=== PATIENT | male | born 1925 | race Caucasian/White ===

== ENCOUNTER 2016-07-26 12:12 | Emergency (ER) | payer OTHER ==
[~2016-07-26] VITALS: Ht 175.3 cm; Wt 75.0 kg
[~2016-07-26 12:12] MED LIST: ADVI200C5 PO; ALFU10TA2 PO; BETH10TA2 PO; COLA100C3 PO; MACR100C2 PO; MAPA500C PO; OMEP20TA PO; PRESCAP5 PO; PRIM50TA5 PO; VITA1000 PO; [UNRECOGNIZED DRUG - OTHER] EACH NARE
[2016-07-26 12:14] VITALS: BP 171/77; PULSE 62; RESP 28; TEMP 98.1; O2SAT 97
--- NOTE | 2016-07-26 13:00 | PD ---
HPI Chief Complaint: Respiratory Symptoms Time Seen by Provider: 13:00 Travel History International Travel<30 days: No Contact w/Intl Traveler<30days: No Traveled to known affect area: No History of Present Illness HPI 89-year-old male brought in by with one week of increasing cough and shortness of breath. Patient has a pacemaker, and reports his automotive technician is Dr. Sam, and states he had a stress test approximately 1 month ago. Patient does have sinus congestion and postnasal drip which has been worsening over the past week. Patient does use Marco-Synephrine in the evening for his sinus congestion. Patient denies fever, chills, nausea, vomiting, or abdominal pain. Patient has a history of indwelling catheter with chronic urinary tract infection for which she takes cefuroxime and Bactrim on a daily basis. This is followed by his urologist. Patient denies headache, ear pain or sore throat. He has no known drug allergies. PFSH Past Medical History Hx Anticoagulant Therapy: No Heart Rhythm Problems: Yes Cardiovascular Problems: Yes (PACEMAKER) High Cholesterol: Yes Diminished Hearing: Yes ([place] [employer] [employer] hearing aids) GERD: Yes Genitourinary: Yes (Enlarged Prostate) Hypertension: Yes Neurologic: Yes (ESSENTIAL TREMORS) Immunizations Current: Yes Past Surgical History Cardiac Surgery: Yes (PACER) Eye Surgery: Yes (BILAT CATARACT) Genitourinary Surgery: Yes (TURP '94) Pacemaker: Yes Other Surgery: Yes ( GOITER REMOVED) Social History Alcohol Use: No Tobacco Use: No (QUIT 1965) Substance Use: No Allergies-Medications (Allergen,Severity, Reaction): Coded Allergies: No Known Allergies (Unverified , 07/26/16) Reported Meds & Prescriptions Reported Meds & Active Scripts Active Macrobid (Nitrofurantoin Monoh/Nitrofur Macro) 100 Mg Cap 100 Mg PO BID 7 Days Reported Omeprazole 20 Mg Tab 20 Mg PO DAILY Bethanechol 10 Mg Tab 10 Mg PO QID Advil (Ibuprofen) 200 Mg Cap 200 Mg PO Q4-6H PRN Mapap (Acetaminophen) 500 Mg Cap 500 Mg PO QID PRN 12 Hour Nasal Relief Eldred (Oxymetazoline HCl) 0.05 % Spr 1 Eldred EACH NARE Q12HR PRN Primidone 50 Mg Tab 100 Mg PO TID D 1000 (Cholecalciferol) 1,000 Unit Tab 1,000 Units PO DAILY Preservision Areds 2 (Multiple Vitamins W/ Minerals) 1 Cap 1 Cap PO BID Colace (Docusate Sodium) 100 Mg Cap 100 Mg PO BID Alfuzosin ER 24 HR 10 Mg Tab 10 Mg PO DAILY Review of Systems Except as stated in HPI: all other systems reviewed are Neg General / Constitutional: No: Fever, Chills Eyes: No: Visual changes HENT: Positive: Rhinitis, Rhinorrhea, Congestion, No: Headaches, Vertigo, Lightheadedness, Sore Throat, Neck Stiffness, Neck Pain, Ear Discharge, Earache Cardiovascular: No: Chest Pain or Discomfort Respiratory: Positive: Cough, Shortness of Breath, No: Wheezing, Sneezing, Orthopnea, Hemoptysis, Stridor, Night Sweats, Pleuritic Pain Gastrointestinal: No: Nausea, Vomiting, Diarrhea, Abdominal Pain Genitourinary: No: Dysuria Musculoskeletal: No: Myalgias, Arthralgias, Limited ROM, Pain Skin: No Rash Neurologic: No: Weakness Psychiatric: No: Depression Endocrine: No: Polydipsia Hematologic/Lymphatic: No: Easy Bruising Physical Exam Narrative GENERAL: Patient appears in no acute distress. SKIN: Warm and dry. Normal color. Normal turgor. HEAD: Atraumatic. Normocephalic. EYES: Pupils equal and round. No scleral icterus. No injection or drainage. ENT: No nasal bleeding but moderate mildly purulent nasal discharge. Mucous membranes pink and moist. Pharynx is normal. TMs are normal bilaterally. NECK: Trachea midline. No JVD. Supple nontender. CARDIOVASCULAR: Regular rate and rhythm. No murmurs gallops or rubs. RESPIRATORY: No accessory muscle use. No wheezes crackles or rales appreciated to auscultation. Breath sounds equal bilaterally. GASTROINTESTINAL: Abdomen soft, non-tender, nondistended. Hepatic and splenic margins not palpable. MUSCULOSKELETAL: Extremities without clubbing, cyanosis, or edema. No obvious deformities. NEUROLOGICAL: Awake and alert. No obvious cranial nerve deficits. Motor grossly within normal limits. Five out of 5 muscle strength in the arms and legs. Normal speech. PSYCHIATRIC: Appropriate mood and affect; insight and judgment normal. Data Data Last Documented VS Vital Signs Date Time Temp Pulse Resp B/P Pulse Ox O2 Delivery O2 Flow Rate FiO2 07/26/16 13:16 16 97 Room Air 07/26/16 12:14 98.1 62 171/77 Orders Complete Blood Count With Diff (07/26/16 13:09) Comprehensive Metabolic Panel (07/26/16 13:09) B-Type Natriuretic Peptide (07/26/16 13:09) Act Partial Throm Time (Ptt) (07/26/16 13:09) Prothrombin Time / Inr (Pt) (07/26/16 13:09) Magnesium (Mg) (07/26/16 13:09) Ckmb (Isoenzyme) Profile (07/26/16 13:09) Troponin I (07/26/16 13:09) Urinalysis - C+S If Indicated (07/26/16 13:09) Influenzae A/B Antigen (07/26/16 13:09) Iv Access Insert/Monitor (07/26/16 13:09) Electrocardiogram (07/26/16 13:09) Ecg Monitoring (07/26/16 13:09) Oximetry (07/26/16 13:09) Oxygen Administration (07/26/16 13:09) Chest, Single Ap (07/26/16 13:09) Sodium Chloride 0.9% Flush (Ns Flush) (07/26/16 13:15) Lactic Acid (07/26/16 13:09) Labs Laboratory Tests Test 07/26/16 13:30 White Blood Count 6.4 TH/MM3 Red Blood Count 4.35 MIL/MM3 Hemoglobin 13.6 GM/DL Hematocrit 39.6 % Mean Corpuscular Volume 91.1 FL Mean Corpuscular Hemoglobin 31.3 PG Mean Corpuscular Hemoglobin 34.4 % Concent Red Cell Distribution Width 14.3 % Platelet Count 203 TH/MM3 Mean Platelet Volume 7.3 FL Neutrophils (%) (Auto) 74.3 % Lymphocytes (%) (Auto) 15.0 % Monocytes (%) (Auto) 9.0 % Eosinophils (%) (Auto) 0.9 % Basophils (%) (Auto) 0.8 % Neutrophils # (Auto) 4.8 TH/MM3 Lymphocytes # (Auto) 1.0 TH/MM3 Monocytes # (Auto) 0.6 TH/MM3 Eosinophils # (Auto) 0.1 TH/MM3 Basophils # (Auto) 0.1 TH/MM3 CBC Comment DIFF FINAL Differential Comment Prothrombin Time 11.1 SEC Prothromb Time International 1.0 RATIO Ratio Activated Partial 26.9 SEC Thromboplast Time Sodium Level 136 MEQ/L Potassium Level 4.5 MEQ/L Chloride Level 101 MEQ/L Carbon Dioxide Level 28.8 MEQ/L Anion Gap 6 MEQ/L Blood Urea Nitrogen 19 MG/DL Creatinine 1.19 MG/DL Estimat Glomerular Filtration 58 ML/MIN Rate Random Glucose 123 MG/DL Lactic Acid Level 0.8 mmol/L Calcium Level 8.6 MG/DL Magnesium Level 2.2 MG/DL Total Bilirubin 0.3 MG/DL Aspartate Amino Transf 7 U/L (AST/SGOT) Alanine Aminotransferase 13 U/L (ALT/SGPT) Alkaline Phosphatase 47 U/L Total Creatine Kinase 16 U/L Troponin I LESS THAN 0.02 NG/ML B-Type Natriuretic Peptide 82 PG/ML Total Protein 5.9 GM/DL Albumin 3.4 GM/DL [facility] Medical Decision Making Medical Screen Exam Complete: Yes Emergency Medical Condition: Yes Differential Diagnosis Sinusitis. Post nasal drip. Bronchitis. Pneumonia. CHF. Narrative Course Patient is medically stable at time of exam. EKG is obtained showing no acute changes with a paced rhythm. This was reviewed with Dr. butcher. Labs ordered including CBC, CMP, cardiac panel, proBNP, and influenza. Urinalysis is ordered as well. Chest x-ray is ordered. This is read as no acute process per radiologist. Labs are unremarkable. Rapid influenza is negative. Patient is felt stable to be discharged home with treatment for sinusitis. Patient is given a prescription for amoxicillin 875 twice a day 10 days. Patient is also to use Flonase nasal spray 2 sprays each nostril daily. Patient also given Tessalon Perles 100 mg one every 6 hours when necessary cough. Patient should follow-up with his primary care physician in the next week to ensure improvement. Patient male was returned to the emergency department if symptoms worsen. Diagnosis Primary Impression: Sinusitis Qualified Code: J01.00 - Acute non-recurrent maxillary sinusitis Additional Impression: Post-nasal drip Referrals: Primary Care Physician Patient Instructions: General Instructions, Sinusitis (ED) Additional Instructions: Patient is felt stable to be discharged home with treatment for sinusitis. Patient is given a prescription for amoxicillin 875 twice a day 10 days. Patient is also to use Flonase nasal spray 2 sprays each nostril daily. Patient also given Tessalon Perles 100 mg one every 6 hours when necessary cough. Patient should follow-up with his primary care physician in the next week to ensure improvement. Patient male was returned to the emergency department if symptoms worsen. Med/Other Pt SpecificInfo: Prescription(s) given Disposition: 01 DISCHARGE HOME Condition: Stable Edgardo De La Rosa Jul 26, 2016 13:00
[2016-07-26] MEDS ORDERED: SODIUM CHLORIDE 0.9% FLUSH 5 ML FLUSH IVF PRN (13:15)
[2016-07-26 13:16] VITALS: RESP 16; O2SAT 97
[2016-07-26 13:51] LABS: AUTOMATED NEUTROPHIL # 4.8 TH/MM3 (1.8-7.7); BASOPHIL # 0.1 TH/MM3 (0-0.2); BASOPHIL % 0.8 % (0.0-2.0); EOSINOPHIL # 0.1 TH/MM3 (0-0.4); EOSINOPHIL % 0.9 % (0.0-4.0); HEMATOCRIT 39.6 % (39.0-51.0); HEMO FLAGS DIFF FINAL; MEAN CELL VOLUME 91.1 FL (80.0-100.0); MEAN CORPUSCULAR HEMOGLOBIN 31.3 PG (27.0-34.0); MEAN CORPUSCULAR HGB CONC 34.4 % (32.0-36.0); NEUT % 74.3 % (16.0-70.0); PLATELET COUNT 203 TH/MM3 (150-450); RED BLOOD COUNT 4.35 MIL/MM3 (4.50-5.90); RED CELL DISTRIBUTION WIDTH 14.3 % (11.6-17.2); WHITE BLOOD COUNT 6.4 TH/MM3 (4.0-11.0)
[2016-07-26 13:59] LABS: APTT (PATIENT) 26.9 SEC (24.3-30.1); PROTHROMBIN TIME - PATIENT 11.1 SEC (9.8-11.6)
[2016-07-26 14:00] LABS: ALT (GPT) 13 U/L (12-78); ANION GAP 6 MEQ/L (5-15); AST (GOT) 7 U/L (15-37); BICARBONATE 28.8 MEQ/L (21.0-32.0); BLOOD UREA NITROGEN 19 MG/DL (7-18); CHLORIDE 101 MEQ/L (98-107); GLOMERULAR FILTRATION RATE 58 ML/MIN (>89); MAGNESIUM 2.2 MG/DL (1.5-2.5); POTASSIUM 4.5 MEQ/L (3.5-5.1); SODIUM (NA) 136 MEQ/L (136-145)
[2016-07-26 14:04] LABS: ALKALINE PHOSPHATASE 47 U/L (45-117); TOTAL BILIRUBIN ADULT 0.3 MG/DL (0.2-1.0)
--- NOTE | 2016-07-26 14:06 | RADRPT ---
EXAM DATE/TIME: 07/26/2016 13:38 [facility] COMPARISON: CHEST SINGLE AP, April 21, 2016, 8:59. INDICATIONS : Short of Breath MEDICAL HISTORY : Chronic obstructive pulmonary disease. SURGICAL HISTORY : Pacemaker. ENCOUNTER: Initial ACUITY: 1 day PAIN SCORE: 0/10 LOCATION: Bilateral chest FINDINGS: Portable AP view of the chest demonstrates a normal-sized cardiac silhouette. No effusion, consolidat ion, or pneumothorax is visualized. The bones and soft tissues demonstrate no acute abnormality. Card iac pacing device is present. CONCLUSION: No acute cardiopulmonary abnormality is identified. Bassem Wilson MD on July 26, 2016 at 14:04 Board Certified Radiologist. This report was verified electronically.
[2016-07-26 14:08] LABS: CREATINE KINASE 16 U/L (39-308)
[2016-07-26] MEDS ORDERED: AMOX875T PO (14:19)
[2016-07-26] MEDS ORDERED: FLUT1SPR9 EACH NARE (14:19)
[2016-07-26] MEDS ORDERED: BENZ100 PO (14:19)
[2016-07-26 15:30] VITALS: BP 141/68
--- NOTE | 2016-07-28 21:29 | EKG ---
Date Performed: 07/26/2016 Time Performed: 13:26:11 PTAGE: 89 years EKG: ELECTRONIC VENTRICULAR PACEMAKER ABNORMAL RHYTHM ECG PREVIOUS TRACING : 06/26/2016 03.20 DOCTOR: Clint Maynard Interpretating Date/Time 07/28/2016 21:28:18
[2016-09-09] MEDS ORDERED: TRAM50TA PO (18:06)
== END 2016-07-26 15:29 | disposition home or self-care (01) ==
LOC: NEPC 12:12
DX: J32.9 Chronic sinusitis, unspecified (principal); R09.82 Postnasal drip; Z95.0 Presence of cardiac pacemaker
CPT/HCPCS: 71010; 80053; 82550; 83605; 83735; 83880; 84484; 85025; 85610; 85730; 87804; 93005

== ENCOUNTER 2016-08-06 14:19 | Inpatient (IN) | payer OTHER ==
[~2016-08-06] VITALS: Ht 175.3 cm; Wt 74.7 kg
[~2016-08-06 14:19] MED LIST changes: +AMOX875T PO; +BENZ100 PO; +FLUT1SPR9 EACH NARE
[2016-08-06 14:27] VITALS: BP 185/88; PULSE 64; RESP 18; TEMP 98.3; O2SAT 87
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
[2016-08-06 15:03] VITALS: RESP 17; O2SAT 97
[2016-08-06 15:12] LABS: AMPHETAMINE, URINE NEG (NEG); AUTOMATED NEUTROPHIL # 5.1 TH/MM3 (1.8-7.7); BACTERIA, URINE RARE /hpf; BARBITURATES, URINE POS (NEG); BASOPHIL % 0.7 % (0.0-2.0); BLOOD, URINE NEG (NEG); COCAINE, URINE NEG (NEG); EOSINOPHIL # 0.1 TH/MM3 (0-0.4); GLUCOSE,URINE NEG (NEG); HEMATOCRIT 39.8 % (39.0-51.0); HEMO FLAGS DIFF FINAL; KETONE, URINE NEG (NEG); LYMPH % 14.2 % (9.0-44.0); MEAN CELL VOLUME 89.3 FL (80.0-100.0); MEAN CORPUSCULAR HEMOGLOBIN 31.4 PG (27.0-34.0); MEAN CORPUSCULAR HGB CONC 35.1 % (32.0-36.0); MONO % 8.8 % (0.0-8.0); NEUT % 74.3 % (16.0-70.0); NITRITE,URINE NEG (NEG); PLATELET COUNT 175 TH/MM3 (150-450); RED BLOOD COUNT 4.46 MIL/MM3 (4.50-5.90); RED CELL DISTRIBUTION WIDTH 14.9 % (11.6-17.2); URINE COLOR YELLOW (YELLW/STRAW); WHITE BLOOD COUNT 6.8 TH/MM3 (4.0-11.0)
[2016-08-06 15:13] LABS: COMMENT (UR) CATH-CULTURE IND; CULTURE IF INDICATED CATH CULTURE IND
[2016-08-06 15:22] LABS: ALT (GPT) 10 U/L (12-78); ANION GAP 8 MEQ/L (5-15); AST (GOT) 7 U/L (15-37); BICARBONATE 24.5 MEQ/L (21.0-32.0); BLOOD UREA NITROGEN 19 MG/DL (7-18); CHLORIDE 104 MEQ/L (98-107); GLOMERULAR FILTRATION RATE 58 ML/MIN (>89); POTASSIUM 4.3 MEQ/L (3.5-5.1); SODIUM (NA) 136 MEQ/L (136-145)
[2016-08-06 15:24] LABS: ACETAMINOPHEN LESS THAN 2.0 MCG/ML (10.0-30.0); ALKALINE PHOSPHATASE 53 U/L (45-117); TOTAL BILIRUBIN ADULT 0.5 MG/DL (0.2-1.0)
[2016-08-06 15:30] VITALS: BP 174/93; PULSE 63; RESP 16; TEMP 98; O2SAT 96
[2016-08-06] MEDS ORDERED: CEPH250T PO (15:34)
[2016-08-06] MEDS ORDERED: PROP20TA3 PO (15:34)
[2016-08-06] MEDS ORDERED: CAPT25TA2 PO (15:34)
[2016-08-06] MEDS ORDERED: CEPHALEXIN MONOHYDRATE 250 MG CAP PO ONE (16:00)
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
[2016-08-06] MEDS ORDERED: ALUMINUM/MAGNESIUM/SIMETH 30 ML CUP PO PRN (17:45)
[2016-08-06] MEDS ORDERED: MAGNESIUM HYDROXIDE SUSP 30 ML CUP PO PRN (17:45)
[2016-08-06 17:54] VITALS: BP 185/95; PULSE 70; RESP 16; O2SAT 99
[2016-08-06] MEDS ORDERED: PROPRANOLOL HCL 20 MG TAB PO ONE (18:00)
[2016-08-06] MEDS: PROPRANOLOL HCL 20 MG TAB PO SCH (21:00)
[2016-08-06] MEDS: CEPHALEXIN MONOHYDRATE 250 MG CAP PO SCH (21:00)
[2016-08-06 21:30] VITALS: BP 153/72; PULSE 75
[2016-08-06] MEDS: IBUPROFEN 400 MG TAB PO PRN (22:14)
[2016-08-06 22:37] VITALS: BP 189/91; PULSE 80; RESP 16; TEMP 97.2; O2SAT 97
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
[2016-08-07] MEDS: OXYMETAZOLINE HCL 0.05% 15 ML NASAL SPRAY NASAL PRN ×2 (00:56→21:32)
[2016-08-07] MEDS: CAPTOPRIL 25 MG TAB PO SCH ×2 (05:39→16:00)
[2016-08-07 05:53] VITALS: BP 171/83; PULSE 60; RESP 18; TEMP 97.4; O2SAT 97
[2016-08-07 07:36] LABS: ANION GAP 7 MEQ/L (5-15); BICARBONATE 26.5 MEQ/L (21.0-32.0); BLOOD UREA NITROGEN 21 MG/DL (7-18); CHLORIDE 103 MEQ/L (98-107); GLOMERULAR FILTRATION RATE 57 ML/MIN (>89); POTASSIUM 3.9 MEQ/L (3.5-5.1); SODIUM (NA) 136 MEQ/L (136-145)
[2016-08-07 07:39] LABS: HDL CHOLESTEROL 38.7 MG/DL (40.0-60.0); LDL CHOLESTEROL 96 MG/DL (0-99)
[2016-08-07] MEDS ORDERED: ENALAPRILAT 1.25 MG/ML VIAL IV PRN (08:00)
[2016-08-07] MEDS ORDERED: cloNIDine HCL 0.1 MG TAB PO PRN (08:00)
[2016-08-07] MEDS: PROPRANOLOL HCL 20 MG TAB PO SCH ×2 (09:29→21:32)
[2016-08-07] MEDS: CEPHALEXIN MONOHYDRATE 250 MG CAP PO SCH ×4 (09:29→21:32)
[2016-08-07] MEDS ORDERED: SODIUM CHLORIDE 0.65% NASAL DRP/SPRY 30 ML BTL PRN (10:30)
--- NOTE | 2016-08-07 10:35 | HHI.PR ---
Subjective Remarks Follow-up visit HTN, enlarged prostate, HLD. Patient seen today. Reports he is doing well. States that he tried to kill himself with a gun because his has been nagging him too much for a long time. As per report, has early Alzheimer's disease and they have been arguing more often. Patient states that he is being seen by Dr. Velazco for enlarged prostate with urinary retention. Willis catheter in place, being change every monthly. As per patient , last change was about a month ago or 3 weeks ago. Complaints of having "stuffy nose." Requesting for his nasal spray. Denies pain and discomfort. Denies SOB/ dyspnea. Denies chest pain, palpitations, headaches, dizziness. Denies fevers, chills, n/v/d. Objective Vitals Vital Signs Date Time Temp Pulse Resp B/P Pulse Ox O2 Delivery O2 Flow Rate FiO2 08/07/16 05:53 97.4 60 18 171/83 97 08/06/16 22:37 97.2 80 16 189/91 97 08/06/16 21:30 75 153/72 08/06/16 17:54 70 16 185/95 99 Room Air 08/06/16 15:30 63 16 08/06/16 15:30 98.0 63 16 174/93 96 Room Air 08/06/16 15:03 17 97 Room Air 08/06/16 14:27 98.3 64 18 185/88 87 I/O 08/06/16 08/06/16 08/06/16 08/07/16 08/07/16 08/07/16 07:00 15:00 23:00 07:00 15:00 23:00 Intake Total 360 ml Output Total 550 ml 300 ml Balance -190 ml -300 ml Intake Oral 360 ml Output Urine Total 550 ml 300 ml # Voids 0 # Bowel Movements 1 1 Result Diagram: 08/06/16 1442 08/07/16 0655 Objective Remarks GENERAL: This is a well-nourished, well-developed patient, in no apparent distress. HEENT: Normocephalic. Pupils equal round and reactive. Nose without bleeding. Airway patent. NECK: Trachea midline. No JVD. Supple. CARDIOVASCULAR: Regular rate and rhythm without murmurs, gallops, or rubs. RESPIRATORY: Clear to auscultation. Breath sounds equal bilaterally. No wheezes , rales, or rhonchi. GASTROINTESTINAL: Abdomen soft, non-tender, nondistended. Bowel Sounds normoactive x4. : Willis in place draining ibrahima colored urine MUSCULOSKELETAL: Extremities without clubbing, cyanosis, or edema. NEUROLOGICAL: Awake and alert. Oriented x 3. No focal neuro deficit. HERMAN. Normal speech. A/P Problem List: (1) Adjustment disorder ICD Code: F43.20 Status: Acute (2) Hypertension ICD Code: I10 Status: Chronic (3) Benign prostatic hypertrophy ICD Code: N40.0 Status: Chronic Assessment and Plan A shunt is an 89-year-old white male with primary history of hypertension, enlarged prostate, HLD who came in under Lopez act secondary to self harm. Admitted to inpatient medical psych unit for further evaluation. Consulted for medical management. Mood adjustment disorder -Managed by psychiatry team Hypertension - -Cont home medications propranolol 20 BID and captopril 25 BID - Uncontrolled. Clonidine and Vasotec when necessary. Avoid Afrin use possible cause of elevated BP - Monitor BP trend BPH, chronic -Consulted Dr. Velazco for recommendations with Willis catheter - Do not remove Willis catheter until further recommendations Urinary tract infection - Inpatient UA showed large leukoesterase, microbiology showed Pseudomonas species >100,000. - On Keflex 250 mg 4 times a day prior to hospitalization. As per patient and given to him by Dr. Velazco - We will confirm with Dr. Velzaco as to duration of treatment. We will change Keflex per microbiology recommendations. Nasal congestion - patient was given Afrin, please discontinue in 2 days. Might be the reason patient's BP elevation. - Start saline spray DVT prophylaxis: encourage ambulation Discussed with patient, RN Written by Aris Vasquez, acting as scribe for Dr. Rose on 08/07/16 at 10:14. The documentation accurately reflects the work performed [id number] by me on at 16:27. Problem Qualifiers (1) Adjustment disorder: Qualified Code: F43.23 - Adjustment disorder with mixed anxiety and depressed mood Aris Hilton Aug 07, 2016 10:35 Vipin Rose MD Aug 07, 2016 16:27
--- NOTE | 2016-08-07 12:49 | HHI.HP ---
Provisional Diagnosis Admission Date Aug 06, 2016 at 18:27 [place] I. Major depressive disorder, single episode, without psychotic [place] II. Deferred Certification of Person's Competence To Provide Express and Informed Consent I have personally examined Edwardo Norman , a person being served at [facility] [[email or web address]] on, Aug 07, 2016 12:33. Express and informed consent means consent voluntarily given in writing, by a competent person, after sufficient explanation and disclosure of the subject matter involved to enable the person to make a knowing and willful decision without any element of force, fraud, deceit, duress, or other form of constraint or coercion. This person is 18 years of age or older, is not now known to be incompetent to consent to treatment with a guardian advocate, and does not have a health care surrogate or proxy currently making medical treatment decisions. I have found this person to be one of the following: [] Competent to provide express and informed consent, as defined above, for voluntary admission to this facility and is competent to provide express and informed consent for treatment. He/she has the consistent capacity to make well reasoned, willful, and knowing decisions concerning his or her medical or mental health treatment. The person fully and consistently understands the purpose of the admission for examination/placement and is fully capable of personally exercising all rights assured under [place] [] Incompetent to provide express and informed consent to voluntary admission, and this is incompetent to provide express and informed consent to treatment. The person must be transferred to involuntary status and a petition for a guardian advocate filed with the Circuit Court. [X] Refusing to provide express and informed consent to voluntary admission but is competent to provide express and informed consent for treatment. The person must be discharged or transferred to involuntary status. Form shall be completed within 24 hours of a person's arrival at the receiving facility and filed in the clinical record of each person: 1. Admitted on a voluntary basis 2. Permitted to provide express and informed consent to his/her own treatment 3. Allowed to transfer from involuntary to voluntary status 4. Prior to permitting a person to consent to his or her own treatment after having been previously found incompetent to consent to treatment. History of Present Illness Capacity: Has Capacity HPI The patient is a 89-year-old man, , retired, , service connected, without any psychiatric history, no previous psychiatric hospitalizations, no previous suicidal attempts, medical history hypertension, BPH, who presents to the emergency department via EMS as a Lopez act initiated by KATHLEEN. As per the BA report patient told his today he was going to shoot himself and had a handgun in his hand. She also reports that a month ago he told her he held a gun to his head and threatened to shoot himself. Patient was seen for psychotic evaluation in the med psych unit alone with nurse in charge Zaire, patient was found calm and cooperative, however difficult to communicate with due to he is very hard of hearing. Patient explains that yesterday he had an argument with his and after that he went out and took his pistol "with the intention to make appointment and to call her attention, but not with the intention to commit suicide". Patient explains that this is the second time he does something very similar in the last months. He says that is been very difficult to deal with his , they have been marital for consult in the In systemt due to frequent arguments. Patient states that before this argument he was doing okay, in his usual state of mind, at this moment the patient denies depression, he actually states he feels very good. He denies anhedonia, he denies hopelessness, he denies helplessness, he denies poor appetite, he denies low level of energy, he reports some difficulty sleeping at night, but he denies suicidal or homicidal ideation. He denies visual and auditory hallucinations. The patient is fully oriented 3,on MMs he scored 26/30, no gross cognitive impairment observed. Patient denies use of alcohol or illicit drugs. Review of Systems Constitutional: DENIES: Diaphoretic episodes, Fatigue, Fever, Weight gain, Weight loss, Chills, Dizziness, Change in appetite, Night Sweats Endocrine: DENIES: Heat/cold intolerance, Polydipsia, Polyuria, Polyphagia Eyes: DENIES: Blurred vision, Diplopia, Eye inflammation, Eye pain, Vision loss , Photosensitivity, Double Vision Ears, nose, mouth, throat: DENIES: Tinnitus, Hearing loss, Vertigo, Nasal discharge, Oral lesions, Throat pain, Hoarseness, Ear Pain, Running Nose, Epistaxis, Sinus Pain, Toothache, Odynophagia Respiratory: DENIES: Apneas, Cough, Snoring, Wheezing, Hemoptysis, Sputum production, Shortness of breath Cardiovascular: DENIES: Chest pain, Palpitations, Syncope, Dyspnea on Exertion , PND, Lower Extremity Edema, Orthopnea, Claudication Gastrointestinal: DENIES: Abdominal pain, Black stools, Bloody stools, Constipation, Diarrhea, Nausea, Vomiting, Difficulty Swallowing, Anorexia Genitourinary: COMPLAINS OF: Urinary incontinence Musculoskeletal: DENIES: Joint pain, Muscle aches, Stiffness, Joint Swelling, Back pain, Neck pain Hematologic/lymphatic: DENIES: Bruising, Lymphadenopathy Immunologic/allergic: DENIES: Eczema, Urticaria Neurologic: DENIES: Abnormal gait, Headache, Localized weakness, Paresthesias, Seizures, Speech Problems, Tremor, Poor Balance Psychiatric: DENIES: Anxiety, Confusion, Mood changes, Depression, Hallucinations, Agitation, Suicidal Ideation, Homicidal Ideation, Delusions Past Psych History Violence risk - self (6 mos) Increased Substance Abuse History Drugs/Alcohol past 12 months He denies Past Family Social History Coded Allergies: No Known Allergies (Unverified , 07/26/16) Reported Medications Cephalexin 250 Mg [id number] Mg PO QID Ref 0 08/06/16 Propranolol 20 Mg Tab20 Mg PO BID #60 TAB Ref 0 08/06/16 Captopril 25 Mg Tab25 Mg PO BIDAC #60 TAB Ref 0 Take 1 hr before meals. 08/06/16 Discontinued Reported Medications Omeprazole 20 Mg Tab20 Mg PO DAILY #30 TAB Ref 0 06/22/16 Bethanechol 10 Mg Tab10 Mg PO QID Ref 0 06/22/16 Ibuprofen (Advil)200 Mg [id number] Mg PO Q4-6H PRN Ref 0 06/22/16 Acetaminophen (Mapap)500 Mg Ixi039 Mg PO QID PRN (PAIN) Ref 0 06/22/16 Oxymetazoline Nasal (12 Hour Nasal Relief [place])0.05 % Spr1 [place] EACH NARE Q12HR PRN (NASAL CONGESTION) 06/22/16 Primidone 50 Mg [id number] Mg PO TID #180 TAB Ref 0 06/22/16 Cholecalciferol (D 1000)1,000 Unit Tab1,000 Units PO DAILY 06/22/16 Multiple Vitamins W/ Minerals (Preservision Areds 2)1 Cap1 Cap PO BID Ref 0 06/22/16 Docusate Sodium (Colace)100 Mg [id number] Mg PO BID #60 CAP Ref 0 06/22/16 Alfuzosin ER 24 HR 10 Mg Tab10 Mg PO DAILY #30 TAB Ref 0 06/22/16 Discontinued Scripts Benzonatate (Tessalon Perles)100 Mg Rie613 Mg PO TID PRN (COUGH) #20 CAP Ref 0 Prov:Edvin Connors MD 07/26/16 Amoxicillin 875 Mg Puq550 Mg PO BID #20 TAB Prov:Edvin Connors MD 07/26/16 Fluticasone Nasal [place] (Flonase Allergy Relief Children Nasal [place])50 Mcg/Act Spray2 [place] EACH NARE DAILY #1 BOTTLE 50 mcg/spray Prov:Edvin Connors MD 07/26/16 Nitrofurantoin Monohydrate Macrocrystals (Macrobid)100 Mg Tjq150 Mg PO BID 7 Days Prov:Priti Arroyo MD 06/22/16 Current Medications Medications (Trade) Dose Ordered Sig/Sarita Route Start Time Stop Time Status Last Admin (Tylenol) 650 mg Q4H PRN PO 08/06/16 17:45 (Milk Of Magnesia Liq) 30 ml DAILY PRN PO 08/06/16 17:45 (Mag-Al Plus Susp Liq) 30 ml Q6H PRN PO 08/06/16 17:45 (Capoten) 25 mg BIDAC PO 08/07/16 07:00 08/07/16 05:39 (Keflex) 250 mg QID PO 08/06/16 21:00 08/07/16 09:29 (Inderal) 20 mg BID PO 08/06/16 21:00 08/07/16 09:29 (Motrin) 400 mg Q6H PRN PO 08/06/16 22:00 08/06/16 22:14 (Afrin 0.05% Scar [place]) 2 spray HS PRN NASAL 08/07/16 00:15 08/09/16 00:14 08/07/16 00:56 (Vasotec Inj) 1.25 mg Q6H PRN IV 08/07/16 08:00 (Catapres) 0.1 mg Q6H PRN PO 08/07/16 08:00 (Baby [place] Saline 0.65% Scar Drp/ [place]) 2 drop Q2HR PRN NA 08/07/16 10:30 Family History He denies Social History Patient was reason born in [place], He is a [place] , he lives with his in [place], he has 1 daughter, his highest level of education is 10th grade. Physical Exam Vital Signs Vital Signs Date Time Temp Pulse Resp B/P Pulse Ox O2 Delivery O2 Flow Rate FiO2 08/07/16 05:53 97.4 60 18 171/83 97 08/06/16 17:54 Room Air I/O 08/06/16 08/06/16 08/07/16 08:00 16:00 00:00 Intake Total 360 ml Output Total 550 ml Balance -190 ml Mental Status Examination Appearance Elderly man, who appears younger than his stated age, good hygiene, [facility], he is cooperative, calm, pleasant Speech: Unremarkable Orientation: x3 Memory: Unremarkable Thought Process: Logical Thought Content: Unremarkable Hallucination Type: None Suicidal Ideation: No Previous Suicide Attempts: No Homicidal Ideation: No Previous Homicide Attempts: No Judgement: Impulsive Affect: Good Mood: Euthymic Motor Activity: Normal gait Assessment & Plan Problem List: (1) Major depressive disorder, single episode Assessment & Plan: 89 years old man, without any previous psychiatric history, who presents to on the Lopez act due to a recent suicidal gesture by pointing with a gun to his head after an argument with his . Apparently this is the second time that the patient does the same in the course of a month. He denies depressive symptoms, he denies anxiety, he denies kimberly, he denies psychosis, he denies suicidal and homicidal ideation. But, patient is unable to elaborate in a rational way about his impulsive behavior. Patient could be potentially minimizing his symptomatology of depression. Patient represents a high risk of danger to himself, needs psychiatric admission for safety and stabilization. We have to monitor symptomatology of depression closely. Collateral information, potential family meeting is needed in order to figure out what is going on at home and in order to coordinate a safe discharge plan. Social work intervention for psychosocial assessment. Extensive support, motivation and psychoeducation provided. We will start Effexor 37.5 mg for depressive symptoms. ICD Code: F32.9 Assessment & Plan Estimated LOS: days Problem Qualifiers (1) Major depressive disorder, single episode: Abdifatah Hernandez MD Aug 07, 2016 12:49
--- NOTE | 2016-08-07 14:53 | PD.CONS ---
Provisional Diagnosis Admission Date Aug 06, 2016 at 18:27 [place] I. Major depressive disorder, single episode, without psychotic [place] II. Deferred History of Present Illness Service Psychiatry Consult Requested By Primary Care Physician [facility] HPI The patient is a 89-year-old man, , retired, , service connected, without any psychiatric history, no previous psychiatric hospitalizations, no previous suicidal attempts, medical history hypertension, BPH, who presents to the emergency department via EMS as a Lopez act initiated by KATHLEEN. As per the BA report patient told his today he was going to shoot himself and had a handgun in his hand. She also reports that a month ago he told her he held a gun to his head and threatened to shoot himself. Patient was seen for psychotic evaluation in the med psych unit alone with nurse in charge Zaire, patient was found calm and cooperative, however difficult to communicate with due to he is very hard of hearing. Patient explains that yesterday he had an argument with his and after that he went out and took his pistol "with the intention to make appointment and to call her attention, but not with the intention to commit suicide". Patient explains that this is the second time he does something very similar in the last months. He says that is been very difficult to deal with his , they have been marital for consult in the Ok systemt due to frequent arguments. Patient states that before this argument he was doing okay, in his usual state of mind, at this moment the patient denies depression, he actually states he feels very good. He denies anhedonia, he denies hopelessness, he denies helplessness, he denies poor appetite, he denies low level of energy, he reports some difficulty sleeping at night, but he denies suicidal or homicidal ideation. He denies visual and auditory hallucinations. The patient is fully oriented 3,on MMs he scored 26/30, no gross cognitive impairment observed. Patient denies use of alcohol or illicit drugs. 08/07/16 Above note dictated by Dr. Johns reviewed and agreed with. Patient 89-year- old white male admitted to Dr. Johns service under the Lopez act. Patient seen with nurse Zaire and patient's present throughout session patient alert overall oriented though somewhat irritable and angry with denial of responsibility and denial of severity of behaviors that led to this hospitalization. Dr. Johns assigned first opinion petition supporting [employer] act. I agree. Patient meets criteria for involuntary psychiatric hospitalization under the Lopez act, thus I will sign second opinion petition supporting [employer] act Past Family Social History Coded Allergies: No Known Allergies (Unverified , 07/26/16) Reported Medications Cephalexin 250 Mg Qlo412 Mg PO QID Ref 0 08/06/16 Propranolol 20 Mg Tab20 Mg PO BID #60 TAB Ref 0 08/06/16 Captopril 25 Mg Tab25 Mg PO BIDAC #60 TAB Ref 0 Take 1 hr before meals. 08/06/16 Discontinued Reported Medications Omeprazole 20 Mg Tab20 Mg PO DAILY #30 TAB Ref 0 06/22/16 Bethanechol 10 Mg Tab10 Mg PO QID Ref 0 06/22/16 Ibuprofen (Advil)200 Mg [id number] Mg PO Q4-6H PRN Ref 0 06/22/16 Acetaminophen (Mapap)500 Mg Pcr891 Mg PO QID PRN (PAIN) Ref 0 06/22/16 Oxymetazoline Nasal (12 Hour Nasal Relief [place])0.05 % Spr1 [place] EACH NARE Q12HR PRN (NASAL CONGESTION) 06/22/16 Primidone 50 Mg Xtp663 Mg PO TID #180 TAB Ref 0 06/22/16 Cholecalciferol (D 1000)1,000 Unit Tab1,000 Units PO DAILY 06/22/16 Multiple Vitamins W/ Minerals (Preservision Areds 2)1 Cap1 Cap PO BID Ref 0 06/22/16 Docusate Sodium (Colace)100 Mg Mnu333 Mg PO BID #60 CAP Ref 0 06/22/16 Alfuzosin ER 24 HR 10 Mg Tab10 Mg PO DAILY #30 TAB Ref 0 06/22/16 Discontinued Scripts Benzonatate (Tessalon Perles)100 Mg Luk376 Mg PO TID PRN (COUGH) #20 CAP Ref 0 Prov:Edvin Connors MD 07/26/16 Amoxicillin 875 Mg Qxz805 Mg PO BID #20 TAB Prov:Edvin Connors MD 07/26/16 Fluticasone Nasal [place] (Flonase Allergy Relief Children Nasal [place])50 Mcg/Act Spray2 [place] EACH NARE DAILY #1 BOTTLE 50 mcg/spray Prov:Edvin Connors MD 1/21/17 Nitrofurantoin Monohydrate Macrocrystals (Macrobid)100 Mg Wwn406 Mg PO BID 7 Days Prov:Priti Arroyo MD 06/22/16 Current Medications Medications (Trade) Dose Ordered Sig/Sarita Route Start Time Stop Time Status Last Admin (Tylenol) 650 mg Q4H PRN PO 08/06/16 17:45 (Milk Of Magnesia Liq) 30 ml DAILY PRN PO 08/06/16 17:45 (Mag-Al Plus Susp Liq) 30 ml Q6H PRN PO 08/06/16 17:45 (Capoten) 25 mg BIDAC PO 08/07/16 07:00 08/07/16 05:39 (Keflex) 250 mg QID PO 08/06/16 21:00 08/07/16 14:29 (Inderal) 20 mg BID PO 08/06/16 21:00 08/07/16 09:29 (Motrin) 400 mg Q6H PRN PO 08/06/16 22:00 08/06/16 22:14 (Afrin 0.05% Scar [place]) 2 spray HS PRN NASAL 08/07/16 00:15 08/09/16 00:14 08/07/16 00:56 (Vasotec Inj) 1.25 mg Q6H PRN IV 08/07/16 08:00 (Catapres) 0.1 mg Q6H PRN PO 08/07/16 08:00 (Baby [place] Saline 0.65% Scar Drp/ [place]) 2 drop Q2HR PRN NA 08/07/16 10:30 08/07/16 14:35 (Effexor Xr) 37.5 mg DAILY PO 08/08/16 09:00 Physical Exam Vital Signs Vital Signs Date Time Temp Pulse Resp B/P Pulse Ox O2 Delivery O2 Flow Rate FiO2 08/07/16 05:53 97.4 60 18 171/83 97 08/06/16 17:54 Room Air I/O 08/06/16 08/06/16 08/07/16 08:00 16:00 00:00 Intake Total 360 ml Output Total 550 ml Balance -190 ml Mental Status Examination Alert stockily built white male appears stated age resting somewhat irritable attitude in his bed his present throughout session. There is good eye contact he is somewhat guarded in his attitude Appearance Clean neatly Speech: Unremarkable Orientation: x3 Memory: Unremarkable Thought Process: Logical Thought Content: Unremarkable Hallucination Type: None Suicidal Ideation: No Previous Suicide Attempts: No Homicidal Ideation: No Previous Homicide Attempts: No Judgement: Impulsive Affect: Good Mood: Euthymic Motor Activity: Normal gait Assessment & Plan Problem List: (1) Major depressive disorder, single episode ICD Code: F32.9 Assessment & Plan Estimated LOS: days Problem Qualifiers (1) Major depressive disorder, single episode: Bassem Montiel MD Aug 07, 2016 14:53
[2016-08-07 15:53] LABS: HEMOGLOBIN A1a 0.9 %; HEMOGLOBIN A1b 0.7 %; HEMOGLOBIN Ao 85.8 %; HEMOGLOBIN P3 5.3 %
[2016-08-07 17:29] VITALS: BP 168/77; PULSE 60; RESP 16; TEMP 97.2; O2SAT 96
[2016-08-07 19:02] VITALS: BP 160/72; PULSE 61; RESP 18; TEMP 97.5; O2SAT 97
[2016-08-07] MEDS: IBUPROFEN 400 MG TAB PO PRN (21:32)
[2016-08-07] MEDS: ACETAMINOPHEN 325 MG TAB PO PRN (23:52)
[2016-08-08] VITALS: BP 174/79; PULSE 60; RESP 14; TEMP 97.6; O2SAT 96
[2016-08-08 06:35] VITALS: BP 176/78; PULSE 60; RESP 16; TEMP 97; O2SAT 96
[2016-08-08] MEDS: CAPTOPRIL 25 MG TAB PO SCH (06:41)
[2016-08-08] MEDS: PROPRANOLOL HCL 20 MG TAB PO SCH ×2 (09:09→20:21)
[2016-08-08] MEDS: VENLAFAXINE HCL XR 37.5 MG CAP PO SCH (09:09)
[2016-08-08] MEDS: CEPHALEXIN MONOHYDRATE 250 MG CAP PO SCH ×4 (09:09→20:21)
--- NOTE | 2016-08-08 11:51 | HHI.PYPN ---
Subjective Remarks Patient seen today for reevaluation, he reports good mood, his is at bedside, patient says that he has been doing much better since is here, he had the opportunity to think and process his reasons behavior and reflect with psychomotor. He reports good sleep and good appetite, also good level of energy. He denies suicidal or homicidal ideation, he denies visual and auditory hallucination. Review of Systems Other No somatic complaints Objective Alert: Yes [place]: Person (ox3), Place, Date, Situation Mood: Calm Affect: Euthymic Memory Intact: Immediate, Comment (no gross impairment) Hallucinations: Other (negative) Delusions: No Delusion Type: Other (none) Suicidal: Ideation (denies at present) Homicidal: Ideation (denies at present) Insight/Judgement fair Labs Date/Time Procedure Status Source Growth 08/06/16 14:42 Urine Culture - Final Complete Urine Catheterized Urine Pseudomonas Aeruginosa Vitals/IOs Vital Signs Date Time Temp Pulse Resp B/P Pulse Ox O2 Delivery O2 Flow Rate FiO2 08/08/16 06:35 97.0 60 16 176/78 96 08/06/16 17:54 Room Air Intake and Output 08/07/16 08/07/16 08/08/16 08:00 16:00 00:00 Intake Total 480 ml 480 ml Output Total 300 ml Balance -300 ml 480 ml 480 ml Assessment & Plan Problem List: (1) Major depressive disorder, single episode Assessment & Plan: We'll continue process of hospitalization for stabilization a longitudinal observation of behavior and mood. We'll continue Effexor 37.5 mg for depression. ICD Code: F32.9 Assessment & Plan Estimated LOS: days Justification for Cont. Inpt. Patient is to continue psychiatric hospitalization for safety and stabilization. Problem Qualifiers (1) Major depressive disorder, single episode: Abdifatah Hernandez MD Aug 08, 2016 11:51
--- NOTE | 2016-08-08 14:09 | HHI.PR ---
Subjective Remarks ollow-up visit HTN, enlarged prostate, HLD. Patient seen today. Reports he is doing well. Denies pain and discomfort. Denies SOB/ dyspnea. Denies chest pain, palpitations, headaches, dizziness. Denies fevers, chills, n/v/d. Objective Vitals Vital Signs Date Time Temp Pulse Resp B/P Pulse Ox O2 Delivery O2 Flow Rate FiO2 08/08/16 06:35 97.0 60 16 176/78 96 08/08/16 00:00 97.6 60 14 174/79 96 08/07/16 19:02 97.5 61 18 160/72 97 08/07/16 17:29 97.2 60 16 168/77 96 I/O 08/07/16 08/07/16 08/07/16 08/08/16 08/08/16 08/08/16 07:00 15:00 23:00 07:00 15:00 23:00 Intake Total 480 ml 840 ml 240 ml Output Total 300 ml 650 ml Balance -300 ml 480 ml 190 ml 240 ml Intake Oral 480 ml 840 ml 240 ml Output Urine Total 300 ml 650 ml # Voids 0 # Bowel Movements 1 0 Result Diagram: 08/06/16 1442 08/07/16 0655 Objective Remarks GENERAL: This is a well-nourished, well-developed patient, in no apparent distress. HEENT: Normocephalic. Pupils equal round and reactive. Nose without bleeding. Airway patent. NECK: Trachea midline. No JVD. Supple. CARDIOVASCULAR: Regular rate and rhythm without murmurs, gallops, or rubs. RESPIRATORY: Clear to auscultation. Breath sounds equal bilaterally. No wheezes , rales, or rhonchi. GASTROINTESTINAL: Abdomen soft, non-tender, nondistended. Bowel Sounds normoactive x4. : Willis in place draining yellow cloudy urine MUSCULOSKELETAL: Extremities without clubbing, cyanosis, or edema. NEUROLOGICAL: Awake and alert. Oriented x 3. No focal neuro deficit. HERMAN. Normal speech. A/P Problem List: (1) Adjustment disorder ICD Code: F43.20 Status: Acute (2) Hypertension ICD Code: I10 Status: Chronic (3) Benign prostatic hypertrophy ICD Code: N40.0 Status: Chronic Assessment and Plan Patient is an 89-year-old white male with primary history of hypertension, enlarged prostate, HLD who came in under [place] act secondary to self harm. Admitted to inpatient medical psych unit for further evaluation. Consulted for medical management. Mood adjustment disorder -Managed by psychiatry team Hypertension - - Cont home medications propranolol 20 BID and increase captopril 50 BID, BP trend SBP 160s to 170s - Uncontrolled. Clonidine and Vasotec when necessary. Avoid Afrin use possible cause of elevated BP - Monitor BP trend BPH, chronic -Consulted Dr. Velazco for recommendations with Willis catheter - Do not remove Willis catheter until further recommendations Urinary tract infection - Inpatient UA showed large leukoesterase, microbiology showed Pseudomonas species >100,000. - On Keflex 250 mg 4 times a day prior to hospitalization by . -Spoke with Dr. Velazco, discuss UA having Pseudomonas species growing. Agrees that it is possibly colonization as patient is asymptomatic, afebrile. Will not treat. Will continue with Keflex as recommended. Keflex to continue until Willis is discontinued or changed by urologist. Nasal congestion - patient was given Afrin, please discontinue in 2 days. Might be the reason patient's BP elevation. - Start saline spray DVT prophylaxis: encourage ambulation Discussed with patient, RN Written by Aris Vasquez, acting as scribe for Dr. Rose on 08/08/16 at 09:10. The documentation accurately reflects the work performed [id number] by me on at 16:55. Problem Qualifiers (1) Adjustment disorder: Qualified Code: F43.23 - Adjustment disorder with mixed anxiety and depressed mood Aris Hilton Aug 08, 2016 14:09 Vipin Rose MD Aug 08, 2016 16:55
[2016-08-08] MEDS: CAPTOPRIL 50 MG TAB PO SCH (18:03)
[2016-08-08] MEDS: ACETAMINOPHEN 325 MG TAB PO PRN ×2 (18:41→23:35)
[2016-08-08 20:12] VITALS: BP 151/72; PULSE 83; RESP 15; TEMP 97.6; O2SAT 98
[2016-08-08] MEDS: IBUPROFEN 400 MG TAB PO PRN (20:21)
[2016-08-09] MEDS: ACETAMINOPHEN 325 MG TAB PO PRN ×3 (05:56→21:10)
[2016-08-09 06:17] VITALS: BP 150/80; PULSE 60; RESP 16; TEMP 98.6; O2SAT 97
[2016-08-09] MEDS: CAPTOPRIL 50 MG TAB PO SCH ×3 (06:19→15:22)
[2016-08-09] MEDS: PROPRANOLOL HCL 20 MG TAB PO SCH ×2 (08:11→21:09)
[2016-08-09] MEDS: VENLAFAXINE HCL XR 37.5 MG CAP PO SCH (08:11)
[2016-08-09] MEDS: CEPHALEXIN MONOHYDRATE 250 MG CAP PO SCH ×4 (08:11→21:09)
--- NOTE | 2016-08-09 09:33 | HHI.PYPN ---
Subjective Remarks Patient was seen and discussed with the property staff accountant. No behavior or management problem reported. Patient claimed that he has been feeling better. He slept well. He denied any active auditory or visual hallucinations. Denied any suicidal ideation intentions or plan. No side effects were complained he is compliant in taking medication. Continue with the same treatment Review of Systems Except as stated in HPI: all other systems reviewed are Neg Psychiatric: COMPLAINS OF: Confusion, Mood changes, Depression Objective Alert: Yes [place]: Person (ox3), Place, Date, Situation Mood: Calm Affect: Euthymic Memory Intact: Immediate, Comment (no gross impairment) Hallucinations: Other (negative) Delusions: No Delusion Type: Other (none) Suicidal: Ideation (denies at present) Homicidal: Ideation (denies at present) Insight/Judgement Limited Labs Date/Time Procedure Status Source Growth 08/06/16 14:42 Urine Culture - Final Complete Urine Catheterized Urine Pseudomonas Aeruginosa Vitals/IOs Vital Signs Date Time Temp Pulse Resp B/P Pulse Ox O2 Delivery O2 Flow Rate FiO2 08/09/16 06:17 98.6 60 16 150/80 97 Automatic Cuff 08/06/16 17:54 Room Air Intake and Output 08/08/16 08/08/16 08/09/16 08:00 16:00 00:00 Intake Total 360 ml 240 ml 500 ml Output Total 650 ml Balance -290 ml 240 ml 500 ml Assessment & Plan Problem List: (1) Major depressive disorder, single episode ICD Code: F32.9 Assessment & Plan Estimated LOS: days Justification for Cont. Inpt. Monitoring of the medication and risk of decompensation Problem Qualifiers (1) Major depressive disorder, single episode: Dave Cota MD Aug 09, 2016 09:33
--- NOTE | 2016-08-09 11:37 | HHI.PR ---
Subjective Remarks Follow-up visit HTN, enlarged prostate, HLD. Patient seen today. Reports he is doing well. Willis catheter was pulled out by patient yesterday. Has been replaced with no issues overnight as per nursing. Denies pain and discomfort. Denies SOB/ dyspnea. Denies chest pain, palpitations, headaches, dizziness. Denies fevers, chills, n/v/d. Objective Vitals Vital Signs Date Time Temp Pulse Resp B/P Pulse Ox O2 Delivery O2 Flow Rate FiO2 08/09/16 06:17 98.6 60 16 150/80 97 Automatic Cuff 08/09/16 00:35 20 08/08/16 21:21 20 08/08/16 20:12 97.6 83 15 151/72 98 I/O 08/08/16 08/08/16 08/08/16 08/09/16 08/09/16 08/09/16 07:00 15:00 23:00 07:00 15:00 23:00 Intake Total 840 ml 240 ml 500 ml 360 ml 360 ml Output Total 650 ml 600 ml Balance 190 ml 240 ml 500 ml -240 ml 360 ml Intake Oral 840 ml 240 ml 500 ml 360 ml 360 ml Output Urine Total 650 ml 600 ml # Voids 0 0 # Bowel Movements 0 0 Result Diagram: 08/06/16 1442 08/07/16 0655 Objective Remarks GENERAL: This is a well-nourished, well-developed patient, in no apparent distress. HEENT: Normocephalic. Pupils equal round and reactive. Nose without bleeding. Airway patent. NECK: Trachea midline. No JVD. Supple. CARDIOVASCULAR: Regular rate and rhythm without murmurs, gallops, or rubs. RESPIRATORY: Clear to auscultation. Breath sounds equal bilaterally. No wheezes , rales, or rhonchi. GASTROINTESTINAL: Abdomen soft, non-tender, nondistended. Bowel Sounds normoactive x4. : Willis in place draining yellow urine MUSCULOSKELETAL: Extremities without clubbing, cyanosis, or edema. NEUROLOGICAL: Awake and alert. Oriented x 3. No focal neuro deficit. HERMAN. Normal speech. A/P Problem List: (1) Adjustment disorder ICD Code: F43.20 Status: Acute (2) Hypertension ICD Code: I10 Status: Chronic (3) Benign prostatic hypertrophy ICD Code: N40.0 Status: Chronic Assessment and Plan Patient is an 89-year-old white male with primary history of hypertension, enlarged prostate, HLD who came in under Lopez act secondary to self harm. Admitted to inpatient medical psych unit for further evaluation. Consulted for medical management. Mood adjustment disorder -Managed by psychiatry team Hypertension - - Cont home medications propranolol 20 BID and increase captopril 50 BID, BP trend SBP 160s to 170s - Uncontrolled. Clonidine and Vasotec when necessary. Avoid Afrin use possible cause of elevated BP - Monitor BP trend -Improved in the SBP 150s now BPH, chronic -Consulted Dr. Velazco for recommendations with Willis catheter - Do not remove Willis catheter until further recommendations - Willis replaced 08/08/15 Urinary tract infection - Inpatient UA showed large leukoesterase, microbiology showed Pseudomonas species >100,000. - On Keflex 250 mg 4 times a day prior to hospitalization. -Spoke with Dr. Velazco re Ucx having Pseudomonas species growing. Agrees that it is possibly colonization versus new infection as patient is asymptomatic , afebrile. Will continue with Keflex as recommended. Keflex to continue until Willis is discontinued or changed by urologist. Nasal congestion - patient was given Afrin, please discontinue in 2 days. Might be the reason patient's BP elevation. - Start saline spray DVT prophylaxis: encourage ambulation Discussed with patient, RN Written by Aris Vasquez, acting as scribe for Dr. Rose on 08/09/16 at 09:40. The documentation accurately reflects the work performed [id number] by me on at 14:43. Problem Qualifiers (1) Adjustment disorder: Qualified Code: F43.23 - Adjustment disorder with mixed anxiety and depressed mood Aris Hilton Aug 09, 2016 11:37 Vipin Rose MD Aug 09, 2016 14:43
[2016-08-09 18:49] VITALS: BP 200/95; PULSE 60; RESP 16; TEMP 97.9; O2SAT 98
[2016-08-10] MEDS: IBUPROFEN 400 MG TAB PO PRN ×2 (01:36→20:10)
[2016-08-10 06:15] VITALS: BP_SYST 176; BP_SYST 183; BP_DIAS 86; BP_DIAS 87; PULSE 61; RESP 14; TEMP 98.4; O2SAT 96
[2016-08-10] MEDS: CAPTOPRIL 50 MG TAB PO SCH (06:22)
[2016-08-10] MEDS: VENLAFAXINE HCL XR 37.5 MG CAP PO SCH (08:48)
[2016-08-10] MEDS: PROPRANOLOL HCL 20 MG TAB PO SCH ×2 (08:48→20:09)
[2016-08-10] MEDS: CEPHALEXIN MONOHYDRATE 250 MG CAP PO SCH ×4 (08:48→20:09)
--- NOTE | 2016-08-10 10:29 | HHI.PR ---
Subjective Remarks F/U HTN. No REYES BP still high dw RN increase captopril to 75 mg BID Objective Vitals Vital Signs Date Time Temp Pulse Resp B/P Pulse Ox O2 Delivery O2 Flow Rate FiO2 08/10/16 06:15 98.4 61 14 183/86 96 176/87 08/09/16 18:49 97.9 60 16 200/95 98 I/O 08/09/16 08/09/16 08/09/16 08/10/16 08/10/16 08/10/16 07:00 15:00 23:00 07:00 15:00 23:00 Intake Total 360 ml 1440 ml 360 ml 360 ml 360 ml Output Total 600 ml 200 ml 700 ml Balance -240 ml 1240 ml 360 ml -340 ml 360 ml Intake Oral 360 ml 1440 ml 360 ml 360 ml 360 ml Output Urine Total 600 ml 200 ml 700 ml # Bowel Movements 0 3 0 Result Diagram: 08/06/16 1442 08/07/16 0655 Objective Remarks GENERAL: This is a well-nourished, well-developed patient, in no apparent distress. HEENT: Normocephalic. Pupils equal round and reactive. Nose without bleeding. Airway patent. NECK: Trachea midline. No JVD. Supple. CARDIOVASCULAR: Regular rate and rhythm without murmurs, gallops, or rubs. RESPIRATORY: Clear to auscultation. Breath sounds equal bilaterally. No wheezes , rales, or rhonchi. GASTROINTESTINAL: Abdomen soft, non-tender, nondistended. Bowel Sounds normoactive x4. : Willis in place draining yellow urine MUSCULOSKELETAL: Extremities without clubbing, cyanosis, or edema. NEUROLOGICAL: Awake and alert. Oriented x 3. No focal neuro deficit. HERMAN. Normal speech. A/P Problem List: (1) Adjustment disorder ICD Code: F43.20 Status: Acute (2) Hypertension ICD Code: I10 Status: Chronic (3) Benign prostatic hypertrophy ICD Code: N40.0 Status: Chronic Assessment and Plan Patient is an 89-year-old white male with primary history of hypertension, enlarged prostate, HLD who came in under Lopez act secondary to self harm. Admitted to inpatient medical psych unit for further evaluation. Consulted for medical management. Mood adjustment disorder -Managed by psychiatry team Hypertension - - Cont home medications propranolol 20 BID and increase captopril 75 BID, - Uncontrolled. Clonidine and Vasotec when necessary. Avoid Afrin use possible cause of elevated BP - Monitor BP trend BPH, chronic -Consulted Dr. Velzaco for recommendations with Willis catheter - Do not remove Willis catheter until further recommendations - Willis replaced 08/08/15 Urinary tract infection - Inpatient UA showed large leukoesterase, microbiology showed Pseudomonas species >100,000. - On Keflex 250 mg 4 times a day prior to hospitalization. -Spoke with Dr. Velazco re Ucx having Pseudomonas species growing. Agrees that it is possibly colonization versus new infection as patient is asymptomatic , afebrile. Will continue with Keflex as recommended. Keflex to continue until Willis is discontinued or changed by urologist. Nasal congestion - patient was given Afrin, please discontinue in 2 days. Might be the reason patient's BP elevation. - Start saline spray DVT prophylaxis: encourage ambulation Discussed with patient, RN Problem Qualifiers (1) Adjustment disorder: Qualified Code: F43.23 - Adjustment disorder with mixed anxiety and depressed mood Vipin Rose MD Aug 10, 2016 10:29 Vipin Rose MD Aug 10, 2016 10:29
--- NOTE | 2016-08-10 11:44 | HHI.PYPN ---
Subjective Remarks Patient was seen and discussed with the staff services manager. Patient reported that he has been doing fine he slept fairly well his appetite is well no behavior or management problem reported. Denied any auditory or visual hallucinations. No side effects were complained. He is complaining of some pain continue with the same treatment Review of Systems Except as stated in HPI: all other systems reviewed are Neg Psychiatric: COMPLAINS OF: Mood changes, Depression Objective Alert: Yes [place]: Person (ox3), Place, Date, Situation Mood: Calm Affect: Euthymic Memory Intact: Immediate, Comment (no gross impairment) Hallucinations: Other (negative) Delusions: No Delusion Type: Other (none) Suicidal: Ideation (denies at present) Homicidal: Ideation (denies at present) Insight/Judgement Fair Labs Date/Time Procedure Status Source Growth 08/06/16 14:42 Urine Culture - Final Complete Urine Catheterized Urine Pseudomonas Aeruginosa Vitals/IOs Vital Signs Date Time Temp Pulse Resp B/P Pulse Ox O2 Delivery O2 Flow Rate FiO2 08/10/16 06:15 98.4 61 14 183/86 96 176/87 08/06/16 17:54 Room Air Intake and Output 08/09/16 08/09/16 08/10/16 08:00 16:00 00:00 Intake Total 360 ml 1440 ml 360 ml Output Total 600 ml 200 ml Balance -240 ml 1240 ml 360 ml Assessment & Plan Problem List: (1) Major depressive disorder, single episode ICD Code: F32.9 Assessment & Plan Estimated LOS: days Justification for Cont. Inpt. Monitoring of the medication to stabilize his mood Problem Qualifiers (1) Major depressive disorder, single episode: Dave Cota MD Aug 10, 2016 11:44
[2016-08-10 15:30] VITALS: BP 186/87; PULSE 60
[2016-08-10] MEDS: CAPTOPRIL 25 MG TAB PO SCH (15:40)
[2016-08-10 19:39] VITALS: BP 173/79; PULSE 61; RESP 16; TEMP 98.2; O2SAT 95
[2016-08-10] MEDS: ACETAMINOPHEN 325 MG TAB PO PRN (23:15)
[2016-08-11 05:58] VITALS: BP 182/87; PULSE 60; RESP 14; TEMP 97.5; O2SAT 98
[2016-08-11] MEDS: CAPTOPRIL 25 MG TAB PO SCH ×2 (06:14→16:00)
[2016-08-11] MEDS: CEPHALEXIN MONOHYDRATE 250 MG CAP PO SCH ×4 (09:16→22:19)
[2016-08-11] MEDS: PROPRANOLOL HCL 20 MG TAB PO SCH (09:16)
[2016-08-11] MEDS: VENLAFAXINE HCL XR 37.5 MG CAP PO SCH (09:16)
[2016-08-11 09:21] LABS: MAGNESIUM 2.1 MG/DL (1.5-2.5); POTASSIUM 3.7 MEQ/L (3.5-5.1)
--- NOTE | 2016-08-11 11:29 | HHI.PYPN ---
Subjective Remarks Patient seen for psychiatric reevaluation today and treatment team alone with social science professor, nursing charge in therapies, patient was following a good mood, talkative, reports doing good,8/10 mood, he denies suicidal or homicidal ideation he denies visual and auditory hallucinations, patient is fully oriented 3, patient states that he recognized that he made a mistake, but in the future will deal better with argument with . No episodes of aggressive behavior, behavioral or mood dysregulation observer reported. Review of Systems Other No somatic complaints Objective Alert: Yes [place]: Person (ox3), Place, Date, Situation Mood: Calm Affect: Euthymic Memory Intact: Immediate, Comment (no gross impairment) Hallucinations: Other (negative) Delusions: No Delusion Type: Other (none) Suicidal: Ideation (denies at present) Homicidal: Ideation (denies at present) Insight/Judgement good Labs Test 08/11/16 08:25 Sodium Level 137 MEQ/L Potassium Level 3.7 MEQ/L Chloride Level 102 MEQ/L Carbon Dioxide Level 26.0 MEQ/L Anion Gap 9 MEQ/L Blood Urea Nitrogen 27 MG/DL Creatinine 1.03 MG/DL Estimat Glomerular Filtration 68 ML/MIN Rate Random Glucose 108 MG/DL Calcium Level 8.6 MG/DL Magnesium Level 2.1 MG/DL Date/Time Procedure Status Source Growth 08/06/16 14:42 Urine Culture - Final Complete Urine Catheterized Urine Pseudomonas Aeruginosa Vitals/IOs Vital Signs Date Time Temp Pulse Resp B/P Pulse Ox O2 Delivery O2 Flow Rate FiO2 08/11/16 05:58 97.5 60 14 182/87 98 Intake and Output 08/10/16 08/10/16 08/11/16 08:00 16:00 00:00 Intake Total 360 ml 1080 ml 1160 ml Output Total 700 ml 600 ml 500 ml Balance -340 ml 480 ml 660 ml Assessment & Plan Problem List: (1) Major depressive disorder, single episode Assessment & Plan: We will increase Effexor to 75 mg daily, will start process of discharge plan. ICD Code: F32.9 Assessment & Plan Estimated LOS: days Justification for Cont. Inpt. In the process of coordinating a safe discharge Problem Qualifiers (1) Major depressive disorder, single episode: Abdifatah Hernandez MD Aug 11, 2016 11:29
[2016-08-11] MEDS: ACETAMINOPHEN 325 MG TAB PO PRN (11:52)
[2016-08-11] MEDS: PANTOPRAZOLE SOD 40 MG DELAYED RELEASE TAB PO SCH (13:00)
--- NOTE | 2016-08-11 14:14 | HHI.PR ---
Subjective Remarks Follow-up visit depression, urinary retention with Willis catheter, hypertension. Patient seen today. Reports he is doing well. Reports loose stools 2 this morning. States it's watery. Denies abdominal cramping. Denies pain and discomfort. Denies SOB/ dyspnea. Denies chest pain, palpitations, headaches, dizziness. Denies fevers, chills, n/v. Objective Vitals Vital Signs Date Time Temp Pulse Resp B/P Pulse Ox O2 Delivery O2 Flow Rate FiO2 08/11/16 05:58 97.5 60 14 182/87 98 08/10/16 19:39 98.2 61 16 173/79 95 08/10/16 15:30 60 186/87 I/O 08/10/16 08/10/16 08/10/16 08/11/16 08/11/16 08/11/16 07:00 15:00 23:00 07:00 15:00 23:00 Intake Total 360 ml 1080 ml 1160 ml 120 ml 480 ml Output Total 700 ml 600 ml 500 ml 700 ml Balance -340 ml 480 ml 660 ml -580 ml 480 ml Intake Oral 360 ml 1080 ml 1160 ml 120 ml 480 ml Output Urine Total 700 ml 600 ml 500 ml 700 ml # Bowel Movements 0 2 Result Diagram: 08/06/16 1442 08/11/16 0825 Objective Remarks GENERAL: This is a well-nourished, well-developed patient, in no apparent distress. Hard of hearing. HEENT: Normocephalic. Pupils equal round and reactive. Nose without bleeding. Airway patent. NECK: Trachea midline. No JVD. Supple. CARDIOVASCULAR: Regular rate and rhythm without murmurs, gallops, or rubs. RESPIRATORY: Clear to auscultation. Breath sounds equal bilaterally. No wheezes , rales, or rhonchi. GASTROINTESTINAL: Abdomen soft, non-tender, nondistended. Bowel Sounds normoactive x4. : Willis in place draining yellow urine clear. MUSCULOSKELETAL: Extremities without clubbing, cyanosis, or edema. NEUROLOGICAL: Awake and alert. Oriented x 3. No focal neuro deficit. HERMAN. Normal speech. Urinary Catheter: Yes Assessment to: Continue Willis insert reason: Obstruction/Retention A/P Problem List: (1) Adjustment disorder ICD Code: F43.20 Status: Acute (2) Hypertension ICD Code: I10 Status: Chronic (3) Benign prostatic hypertrophy ICD Code: N40.0 Status: Chronic Assessment and Plan Patient is an 89-year-old white male with primary history of hypertension, enlarged prostate, HLD who came in under Lopez act secondary to self harm. Admitted to inpatient medical psych unit for further evaluation. Consulted for medical management. Loose stools - stool for C. difficile ordered Mood adjustment disorder -Managed by psychiatry team Hypertension -uncontrolled - Increase propranolol 40 BID and increase captopril 75mg twice a day - Clonidine and Vasotec when necessary. Avoid Afrin use possible cause of elevated BP - Monitor BP trend BPH, chronic -Consulted Dr. Velazco for recommendations with Willis catheter - Do not remove Willis catheter until further recommendations - Willis replaced 08/08/15 Urinary tract infection - Inpatient UA showed large leukoesterase, microbiology showed Pseudomonas species >100,000. - On Keflex 250 mg 4 times a day prior to hospitalization. -Spoke with Dr. cherry, discuss UA having Pseudomonas species growing. Agrees that it is possibly colonization versus new infection as patient is asymptomatic, afebrile. Will continue with Keflex as recommended. Keflex to continue until Willis is discontinued or changed by urologist. Nasal congestion - patient was given Afrin, please discontinue in 2 days. Might be the reason patient's BP elevation. - Start saline spray DVT prophylaxis: encourage ambulation Discussed with patient, RN, Written by Aris Vasquez, acting as scribe for Dr. Barrett on 08/11/16 at 14:33. Attending Statement The documentation accurately reflects the work performed [id number] by me, Dr. Barrett on 08/11/16 at 14:33. Problem Qualifiers (1) Adjustment disorder: Qualified Code: F43.23 - Adjustment disorder with mixed anxiety and depressed mood Aris Hilton Aug 11, 2016 14:14 Jluis Barrett MD Aug 22, 2016 09:53
[2016-08-11 16:28] VITALS: BP 182/90; PULSE 60; RESP 16; TEMP 98.1; O2SAT 97
[2016-08-11 19:45] VITALS: BP 182/90; PULSE 60; RESP 16; TEMP 98.1; O2SAT 97
[2016-08-11] MEDS: IBUPROFEN 400 MG TAB PO PRN (22:18)
[2016-08-11] MEDS: PROPRANOLOL HCL 40 MG TAB PO SCH (22:19)
[2016-08-12 01:18] LABS: C. DIFF EPI 027 PRESUMPTIVE NEGATIVE (NEGATIVE)
[2016-08-12 01:37] LABS: C. DIFF TOXIN PCR POSITIVE (NEGATIVE)
[2016-08-12] MEDS ORDERED: metroNIDAZOLE 500 MG INJ 100 ML IV SCH (02:15)
[2016-08-12] MEDS: ACETAMINOPHEN 325 MG TAB PO PRN ×3 (02:45→22:28)
[2016-08-12 05:46] VITALS: BP 191/90; PULSE 59; RESP 16; TEMP 98; O2SAT 98
[2016-08-12] MEDS: CAPTOPRIL 25 MG TAB PO SCH ×2 (06:13→16:00)
[2016-08-12 06:18] LABS: AUTOMATED NEUTROPHIL # 5.8 TH/MM3 (1.8-7.7); BASOPHIL # 0.1 TH/MM3 (0-0.2); BASOPHIL % 0.7 % (0.0-2.0); EOSINOPHIL # 0.3 TH/MM3 (0-0.4); EOSINOPHIL % 3.4 % (0.0-4.0); HEMATOCRIT 38.9 % (39.0-51.0); HEMO FLAGS DIFF FINAL; LYMPH % 14.6 % (9.0-44.0); LYMPHOCYTE # 1.2 TH/MM3 (1.0-4.8); MEAN CELL VOLUME 89.4 FL (80.0-100.0); MEAN CORPUSCULAR HEMOGLOBIN 31.4 PG (27.0-34.0); MEAN CORPUSCULAR HGB CONC 35.2 % (32.0-36.0); MONO % 11.9 % (0.0-8.0); NEUT % 69.4 % (16.0-70.0); PLATELET COUNT 174 TH/MM3 (150-450); RED BLOOD COUNT 4.35 MIL/MM3 (4.50-5.90); RED CELL DISTRIBUTION WIDTH 15.2 % (11.6-17.2); WHITE BLOOD COUNT 8.4 TH/MM3 (4.0-11.0)
[2016-08-12 06:39] LABS: BICARBONATE 22.8 MEQ/L (21.0-32.0); POTASSIUM 3.5 MEQ/L (3.5-5.1)
[2016-08-12] MEDS: PANTOPRAZOLE SOD 40 MG DELAYED RELEASE TAB PO SCH (09:09)
[2016-08-12] MEDS: PROPRANOLOL HCL 40 MG TAB PO SCH ×2 (09:09→22:05)
[2016-08-12] MEDS: CEPHALEXIN MONOHYDRATE 250 MG CAP PO SCH ×4 (09:09→22:05)
[2016-08-12] MEDS: VENLAFAXINE HCL XR 75 MG CAP PO SCH (09:10)
--- NOTE | 2016-08-12 10:31 | HHI.PYPN ---
Subjective Remarks Patient seen for psychiatric reevaluation today, patient continues to be compliant with psychotropics, in a good mood, denies depression, denies anxiety , denies suicidal and homicidal ideation, fully oriented, his memory seems to be intact. Patient explains that once discharged is planning to avoid confrontations with his and would continue couples therapy. Patient has been complaining of loose stools, C. difficile PCR was ordered. Review of Systems Constitutional: DENIES: Diaphoretic episodes, Fatigue, Fever, Weight gain, Weight loss, Chills, Dizziness, Change in appetite, Night Sweats Endocrine: DENIES: Heat/cold intolerance, Polydipsia, Polyuria, Polyphagia Eyes: DENIES: Blurred vision, Diplopia, Eye inflammation, Eye pain, Vision loss , Photosensitivity, Double Vision Ears, nose, mouth, throat: DENIES: Tinnitus, Hearing loss, Vertigo, Nasal discharge, Oral lesions, Throat pain, Hoarseness, Ear Pain, Running Nose, Epistaxis, Sinus Pain, Toothache, Odynophagia Respiratory: DENIES: Apneas, Cough, Snoring, Wheezing, Hemoptysis, Sputum production, Shortness of breath Cardiovascular: DENIES: Chest pain, Palpitations, Syncope, Dyspnea on Exertion , PND, Lower Extremity Edema, Orthopnea, Claudication Gastrointestinal: COMPLAINS OF: Diarrhea Musculoskeletal: DENIES: Joint pain, Muscle aches, Stiffness, Joint Swelling, Back pain, Neck pain Integumentary: DENIES: Abnormal pigmentation, Nail changes, Pruritus, Rash Neurologic: DENIES: Abnormal gait, Headache, Localized weakness, Paresthesias, Seizures, Speech Problems, Tremor, Poor Balance Psychiatric: DENIES: Anxiety, Confusion, Mood changes, Depression, Hallucinations, Agitation, Suicidal Ideation, Homicidal Ideation, Delusions Objective Alert: Yes [place]: Person (ox3), Place, Date, Situation Mood: Calm Affect: Euthymic Memory Intact: Immediate, Comment (no gross impairment) Hallucinations: Other (negative) Delusions: No Delusion Type: Other (none) Suicidal: Ideation (denies at present) Homicidal: Ideation (denies at present) Insight/Judgement Good Labs Test 08/11/16 08/12/16 22:35 06:06 Stool C. difficile Toxin (PCR) POSITIVE Stl C. difficile Toxin PRESUMPTIVE Epiderm 027 NEGATIVE White Blood Count 8.4 TH/MM3 Red Blood Count 4.35 MIL/MM3 Hemoglobin 13.7 GM/DL Hematocrit 38.9 % Mean Corpuscular Volume 89.4 FL Mean Corpuscular Hemoglobin 31.4 PG Mean Corpuscular Hemoglobin 35.2 % Concent Red Cell Distribution Width 15.2 % Platelet Count 174 TH/MM3 Mean Platelet Volume 7.1 FL Neutrophils (%) (Auto) 69.4 % Lymphocytes (%) (Auto) 14.6 % Monocytes (%) (Auto) 11.9 % Eosinophils (%) (Auto) 3.4 % Basophils (%) (Auto) 0.7 % Neutrophils # (Auto) 5.8 TH/MM3 Lymphocytes # (Auto) 1.2 TH/MM3 Monocytes # (Auto) 1.0 TH/MM3 Eosinophils # (Auto) 0.3 TH/MM3 Basophils # (Auto) 0.1 TH/MM3 CBC Comment DIFF FINAL Differential Comment Sodium Level 136 MEQ/L Potassium Level 3.5 MEQ/L Chloride Level 105 MEQ/L Carbon Dioxide Level 22.8 MEQ/L Anion Gap 8 MEQ/L Blood Urea Nitrogen 24 MG/DL Creatinine 0.98 MG/DL Estimat Glomerular Filtration 72 ML/MIN Rate Random Glucose 113 MG/DL Calcium Level 8.5 MG/DL Vitals/IOs Vital Signs Date Time Temp Pulse Resp B/P Pulse Ox O2 Delivery O2 Flow Rate FiO2 08/12/16 05:46 98.0 59 16 191/90 98 Intake and Output 08/11/16 08/11/16 08/12/16 08:00 16:00 00:00 Intake Total 120 ml 480 ml 340 ml Output Total 700 ml 1050 ml Balance -580 ml 480 ml -710 ml Assessment & Plan Problem List: (1) Major depressive disorder, single episode ICD Code: F32.9 Assessment & Plan Estimated LOS: days Justification for Cont. Inpt. Patient is not medically cleared, C. difficile PCR is positive, waiting for medical clearance for discharge back home. Problem Qualifiers (1) Major depressive disorder, single episode: Abdifatah Hernandez MD Aug 12, 2016 10:31
[2016-08-12 11:21] VITALS: BP 162/88
[2016-08-12] MEDS ORDERED: amLODIPine BESYLATE 5 MG TAB PO ONE (12:45)
[2016-08-12] MEDS ORDERED: METR-1 PO (12:46)
[2016-08-12] MEDS ORDERED: NORV2.5T PO (12:46)
[2016-08-12] MEDS ORDERED: CAPT25TA2 PO (12:46)
[2016-08-12] MEDS ORDERED: PROP40TA3 PO (12:46)
[2016-08-12] MEDS ORDERED: CEPH250C PO (12:46)
--- NOTE | 2016-08-12 12:51 | HHI.DS ---
Psychiatry Discharge Summary Inpatient Psychiatric care?: Yes Advance Directive: No Reason Not Provided: pt has none Mental Health AdvanceDirective: No Health Care Proxy: Yes Admission Admission Date Aug 06, 2016 at 18:27 Admission Diagnosis: (1) Major depressive disorder, single episode ICD Code: F32.9 Brief History The patient is a 89-year-old man, , retired, , service connected, without any psychiatric history, no previous psychiatric hospitalizations, no previous suicidal attempts, medical history hypertension, BPH, who presents to the emergency department via EMS as a Lopez act initiated by KATHLEEN. As per the BA report patient told his today he was going to shoot himself and had a handgun in his hand. She also reports that a month ago he told her he held a gun to his head and threatened to shoot himself. Patient was seen for psychotic evaluation in the med psych unit alone with nurse in charge Zaire, patient was found calm and cooperative, however difficult to communicate with due to he is very hard of hearing. Patient explains that yesterday he had an argument with his and after that he went out and took his pistol "with the intention to make appointment and to call her attention, but not with the intention to commit suicide". Patient explains that this is the second time he does something very similar in the last months. He says that is been very difficult to deal with his , they have been marital for consult in the [facility] due to frequent arguments. Patient states that before this argument he was doing okay, in his usual state of mind, at this moment the patient denies depression, he actually states he feels very good. He denies anhedonia, he denies hopelessness, he denies helplessness, he denies poor appetite, he denies low level of energy, he reports some difficulty sleeping at night, but he denies suicidal or homicidal ideation. He denies visual and auditory hallucinations. The patient is fully oriented 3,on MMs he scored 26/30, no gross cognitive impairment observed. Patient denies use of alcohol or illicit drugs. 08/07/16 Above note dictated by Dr. Johns reviewed and agreed with. Patient 89-year- old white male admitted to Dr. Johns service under the Lopez act. Patient seen with nurse Zaire and patient's present throughout session patient alert overall oriented though somewhat irritable and angry with denial of responsibility and denial of severity of behaviors that led to this hospitalization. Dr. Johns assigned first opinion petition supporting Lopez act. I agree. Patient meets criteria for involuntary psychiatric hospitalization under the Lopez act, thus I will sign second opinion petition supporting Lopez act Tobacco Use In Past 30 Days: No Tobacco Past 30 Days Alcohol Use: Never Hospital Course was brought to the hospital initially due to impulsive behavior after making a suicidal gesture of pointing his gun and suggesting that he wanted to commit suicide. Since the beginning of the hospitalization patient stated that he was not pretending to commit suicide, he was just trying to make a point. During the hospitalization patient was usually calm, cooperative and pleasant. Since the beginning he clarifies that he was just upset with his , during the hospitalization patient maintained an and appropriate behavior, without any aggressive behavior, agitation, mood or behavioral dysregulation reported. Patient was usually very good compliance with medications, he remained mostly in bed with poor interaction with staff and peers, due to physical limitations. Medical team followed him up due to underlying medical conditions, during the hospitalization he was diagnosed with diarrhea posteriorly with C. difficile and he was recommended to take by mouth antibiotics for 14 days. At the moment of the patient denies depressed mood, denies anxiety, denies perceptual disturbances, denies suicidal or homicidal ideation. Results Blood Pressure 162 / 88 Vital Signs Date Time Temp Pulse Resp B/P Pulse Ox O2 Delivery O2 Flow Rate FiO2 08/12/16 11:21 162/88 08/12/16 05:46 98.0 59 16 98 Laboratory Tests Test 08/11/16 08/11/16 08/12/16 08:25 22:35 06:06 Blood Urea Nitrogen 27 MG/DL (7-18) 24 MG/DL (7-18) Estimat Glomerular Filtration 68 ML/MIN (>89) 72 ML/MIN (>89) Rate Random Glucose 108 MG/DL 113 MG/DL (74-106) (74-106) Stool C. difficile Toxin (PCR) POSITIVE (NEGATIVE) Red Blood Count 4.35 MIL/MM3 (4.50-5.90) Hematocrit 38.9 % (39.0-51.0) Monocytes (%) (Auto) 11.9 % (0.0-8.0) Monocytes # (Auto) 1.0 TH/MM3 (0-0.9) Summary of Major Lab Results Current Medications Medications (Trade) Dose Ordered Sig/Sarita Route Start Time Stop Time Status Last Admin (Tylenol) 650 mg Q4H PRN PO 08/06/16 17:45 08/12/16 09:09 (Milk Of Magnesia Liq) 30 ml DAILY PRN PO 08/06/16 17:45 (Mag-Al Plus Susp Liq) 30 ml Q6H PRN PO 08/06/16 17:45 (Keflex) 250 mg QID PO 08/06/16 21:00 08/12/16 09:09 (Motrin) 400 mg Q6H PRN PO 08/06/16 22:00 08/11/16 22:18 (Vasotec Inj) 1.25 mg Q6H PRN IV 08/07/16 08:00 (Catapres) 0.1 mg Q6H PRN PO 08/07/16 08:00 08/09/16 16:39 (Baby Fluvanna Saline 0.65% Scar Drp/ Talty) 2 drop Q2HR PRN NA 08/07/16 10:30 08/07/16 14:35 (Capoten) 75 mg BIDAC PO 08/10/16 16:00 08/12/16 06:13 (Inderal) 40 mg BID PO 08/11/16 21:00 08/12/16 09:09 (Effexor Xr) 75 mg DAILY PO 08/12/16 09:00 08/12/16 09:10 (Protonix) 40 mg DAILY PO 08/11/16 13:00 08/12/16 09:09 (Flagyl) 500 mg Q8HR PO 08/12/16 14:00 08/26/16 13:59 Summary of Procedures Current Medications Medications (Trade) Dose Ordered Sig/Sarita Route Start Time Stop Time Status Last Admin (Tylenol) 650 mg Q4H PRN PO 08/06/16 17:45 08/12/16 09:09 (Milk Of Magnesia Liq) 30 ml DAILY PRN PO 08/06/16 17:45 (Mag-Al Plus Susp Liq) 30 ml Q6H PRN PO 08/06/16 17:45 (Keflex) 250 mg QID PO 08/06/16 21:00 08/12/16 09:09 (Motrin) 400 mg Q6H PRN PO 08/06/16 22:00 08/11/16 22:18 (Vasotec Inj) 1.25 mg Q6H PRN IV 08/07/16 08:00 (Catapres) 0.1 mg Q6H PRN PO 08/07/16 08:00 08/09/16 16:39 (Baby Fluvanna Saline 0.65% Scar Drp/ Talty) 2 drop Q2HR PRN NA 08/07/16 10:30 08/07/16 14:35 (Capoten) 75 mg BIDAC PO 08/10/16 16:00 08/12/16 06:13 (Inderal) 40 mg BID PO 08/11/16 21:00 08/12/16 09:09 (Effexor Xr) 75 mg DAILY PO 08/12/16 09:00 08/12/16 09:10 (Protonix) 40 mg DAILY PO 08/11/16 13:00 08/12/16 09:09 (Flagyl) 500 mg Q8HR PO 08/12/16 14:00 08/26/16 13:59 Pending results at discharge: No Medications # of Antipsychotic meds at D/C: 0 Approp Antipsych med options 1 - Minimum of three failed multiple trials of monotherapy. 2 - Documented plan to taper to monotherapy due to previous use of multiple meds OR cross-taper in progress at D/C. 3 - Documentation of augmentation of Clozapine. 4 - Justification other than those listed in allowable values 1-3, document here : Discharge Discharge Date: Aug 12, 2016 Discharge Diagnosis: (1) Adjustment disorder ICD Code: F43.20 Mental Status Exam at Disch man, age appearing, calm, cooperative and pleasant, his his speech is soft and low volume, his mood is euthymic, affect congruent with mood, thought processes coherent and relevant, thought content is devoid of suicidal ideation , homicidal ideation, visual hallucination, and auditory hallucinations. His insight, impulse control and judgment are good, his cognition is intact. Pt Condition on Discharge: Stable Discharge Disposition: Discharge Home Discharge Instructions Diet Instructions: Heart Healthy Diet Activities you can perform: Regular-No Restrictions Scheduled Appointment: Discharge Time > 30 minutes Discharge/Advance Care Plan Health Problems: (1) Major depressive disorder, single episode Goals to promote your health * To prevent worsening of your condition and complications * To maintain your health at the optimal level Directions to meet your goals Take your medications as prescribed Follow your dietary instruction Follow activity as directed Keep your appointments as scheduled Take your immunizations and boosters as scheduled If your symptoms worsen call your PCP, if no PCP go to Urgent Care Center or Emergency Room For 26/01 questions related to your inpatient stay or results of tests pending at discharge, please contact Dr. Abdifatah Hernandez at Smoking is Dangerous to Your Health. Avoid second hand smoking Problem Qualifiers (1) Major depressive disorder, single episode: (2) Adjustment disorder: Qualified Code: F43.23 - Adjustment disorder with mixed anxiety and depressed mood Abdifatah Hernandez MD Aug 12, 2016 12:51
[2016-08-12] MEDS ORDERED: VENL75XR PO (12:54)
[2016-08-12] MEDS ORDERED: PILL SPLITTER OTHER PRN (13:00)
--- NOTE | 2016-08-12 13:09 | HHI.PR ---
Subjective Remarks Follow-up visit depression, urinary retention with Willis catheter, hypertension. Patient seen today. Reports he is doing well. Reports no further loose stools today. Denies abdominal cramping. Denies pain and discomfort. Denies SOB/ dyspnea. Denies chest pain, palpitations, headaches, dizziness. Denies fevers, chills, n/v. Objective Vitals Vital Signs Date Time Temp Pulse Resp B/P Pulse Ox O2 Delivery O2 Flow Rate FiO2 08/12/16 11:21 162/88 08/12/16 05:46 98.0 59 16 191/90 98 08/11/16 19:45 98.1 60 16 182/90 97 08/11/16 16:28 98.1 60 16 182/90 97 I/O 08/11/16 08/11/16 08/11/16 08/12/16 08/12/16 08/12/16 07:00 15:00 23:00 07:00 15:00 23:00 Intake Total 120 ml 480 ml 340 ml 480 ml Output Total 700 ml 1050 ml 300 ml Balance -580 ml 480 ml -710 ml 180 ml Intake Oral 120 ml 480 ml 340 ml 480 ml Output Urine Total 700 ml 1050 ml 300 ml # Voids 3 2 # Bowel Movements 2 1 Result Diagram: 08/12/16 0606 08/12/16 0606 Objective Remarks GENERAL: This is a well-nourished, well-developed patient, in no apparent distress. Hard of hearing. HEENT: Normocephalic. Pupils equal round and reactive. Nose without bleeding. Airway patent. NECK: Trachea midline. No JVD. Supple. CARDIOVASCULAR: Regular rate and rhythm without murmurs, gallops, or rubs. RESPIRATORY: Clear to auscultation. Breath sounds equal bilaterally. No wheezes , rales, or rhonchi. GASTROINTESTINAL: Abdomen soft, non-tender, nondistended. Bowel Sounds normoactive x4. : Willis in place draining yellow urine clear. MUSCULOSKELETAL: Extremities without clubbing, cyanosis, or edema. NEUROLOGICAL: Awake and alert. Oriented x 3. No focal neuro deficit. HERMAN. Normal speech. A/P Problem List: (1) Adjustment disorder ICD Code: F43.20 Status: Acute (2) Hypertension ICD Code: I10 Status: Chronic (3) Benign prostatic hypertrophy ICD Code: N40.0 Status: Chronic Assessment and Plan Patient is an 89-year-old white male with primary history of hypertension, enlarged prostate, HLD who came in under Lopez act secondary to self harm. Admitted to inpatient medical psych unit for further evaluation. Consulted for medical management. Loose stools - stool for C. difficile positive 027 neg -Flagyl 500mg PO x 14 days Mood adjustment disorder -Managed by psychiatry team Hypertension -uncontrolled - add Amlodipine 2.5 mg daily - propranolol 40 BID and captopril 75mg twice a day - Clonidine and Vasotec when necessary. Avoid Afrin use possible cause of elevated BP - Monitor BP trend BPH, chronic -Consulted Dr. Velazco for recommendations with Willis catheter - Do not remove Willis catheter until further recommendations - Willis replaced 08/08/15 Urinary tract infection - Inpatient UA showed large leukoesterase, microbiology showed Pseudomonas species >100,000. - On Keflex 250 mg 4 times a day prior to hospitalization. -Spoke with Dr. Velazco, discuss UA having Pseudomonas species growing. Agrees that it is possibly colonization versus new infection as patient is asymptomatic, afebrile. Will continue with Keflex as recommended. Keflex to continue until Willis is discontinued or changed by urologist. Nasal congestion - patient was given Afrin, please discontinue in 2 days. Might be the reason patient's BP elevation. - Start saline spray DVT prophylaxis: encourage ambulation Discussed with patient, RN, Dr. Hernandez and Dr. Barrett Attending Statement The exam, history, and the medical decision-making described in the above note were completed with the assistance of the mid-level provider. I reviewed and agree with the findings presented. I attest that I had a [id number] encounter with the patient on the same day, and personally performed and documented my assessment and findings in the medical record. Problem Qualifiers (1) Adjustment disorder: Qualified Code: F43.23 - Adjustment disorder with mixed anxiety and depressed mood Mine Damian Aug 12, 2016 13:09 Jluis Barrett MD Aug 22, 2016 09:54
[2016-08-12] MEDS: metroNIDAZOLE 500 MG TAB PO SCH ×2 (14:00→22:05)
[2016-08-12 20:26] VITALS: BP 170/80; PULSE 60; RESP 16; TEMP 97.9; O2SAT 96
[2016-08-13] MEDS: IBUPROFEN 400 MG TAB PO PRN (00:44)
[2016-08-13] MEDS: CAPTOPRIL 25 MG TAB PO SCH (06:19)
[2016-08-13] MEDS: metroNIDAZOLE 500 MG TAB PO SCH (06:19)
[2016-08-13 06:50] VITALS: BP 184/86; PULSE 60; RESP 18; TEMP 97.6; O2SAT 97
[2016-08-13] MEDS: PROPRANOLOL HCL 40 MG TAB PO SCH (08:53)
[2016-08-13] MEDS: VENLAFAXINE HCL XR 75 MG CAP PO SCH (08:53)
[2016-08-13] MEDS: CEPHALEXIN MONOHYDRATE 250 MG CAP PO SCH (08:53)
[2016-08-13] MEDS: PANTOPRAZOLE SOD 40 MG DELAYED RELEASE TAB PO SCH (08:54)
[2016-08-13] MEDS ORDERED: amLODIPine BESYLATE 5 MG TAB PO SCH (09:00)
[2016-08-13 09:37] VITALS: BP 172/80; PULSE 60
[2016-08-13 11:20] VITALS: BP 162/79; PULSE 60
--- NOTE | 2016-08-13 11:37 | HHI.PR ---
Subjective Remarks Follow-up visit depression, urinary retention with Willis catheter, hypertension. Patient seen today. Reports he is doing well. 3 BMs in the past 24 hours. Denies abdominal cramping. Denies pain and discomfort. Denies SOB/ dyspnea. Denies chest pain, palpitations, headaches, dizziness. Denies fevers, chills, n/v. Objective Vitals Vital Signs Date Time Temp Pulse Resp B/P Pulse Ox O2 Delivery O2 Flow Rate FiO2 08/13/16 09:37 60 172/80 08/13/16 06:50 97.6 60 18 184/86 97 08/12/16 20:26 97.9 60 16 170/80 96 I/O 08/12/16 08/12/16 08/12/16 08/13/16 08/13/16 08/13/16 07:00 15:00 23:00 07:00 15:00 23:00 Intake Total 480 ml 600 ml 480 ml 240 ml Output Total 300 ml 350 ml Balance 180 ml 600 ml 480 ml -110 ml Intake Oral 480 ml 600 ml 480 ml 240 ml Output Urine Total 300 ml 350 ml # Voids 2 2 # Bowel Movements 1 0 Result Diagram: 08/12/1660508/12/16 0606 Objective Remarks GENERAL: This is a well-nourished, well-developed patient, in no apparent distress. Hard of hearing. HEENT: Normocephalic. Pupils equal round and reactive. Nose without bleeding. Airway patent. NECK: Trachea midline. No JVD. Supple. CARDIOVASCULAR: Regular rate and rhythm without murmurs, gallops, or rubs. RESPIRATORY: Clear to auscultation. Breath sounds equal bilaterally. No wheezes , rales, or rhonchi. GASTROINTESTINAL: Abdomen soft, non-tender, nondistended. Bowel Sounds normoactive x4. : Willis in place draining yellow urine clear. MUSCULOSKELETAL: Extremities without clubbing, cyanosis, or edema. NEUROLOGICAL: Awake and alert. Oriented x 3. No focal neuro deficit. HERMAN. Normal speech. A/P Problem List: (1) Adjustment disorder ICD Code: F43.20 Status: Acute (2) Hypertension ICD Code: I10 Status: Chronic (3) Benign prostatic hypertrophy ICD Code: N40.0 Status: Chronic Assessment and Plan Patient is an 89-year-old white male with primary history of hypertension, enlarged prostate, HLD who came in under [employer] act secondary to self harm. Admitted to inpatient medical psych unit for further evaluation. Consulted for medical management. Loose stools - stool for C. difficile positive 027 neg -Flagyl 500mg PO x 14 days Mood adjustment disorder -Managed by psychiatry team Hypertension -uncontrolled - continue Amlodipine 2.5 mg daily - propranolol 40 BID and captopril 75mg twice a day - Clonidine and Vasotec when necessary. Avoid Afrin use possible cause of elevated BP - Monitor BP trend BPH, chronic -Consulted Dr. Velazco for recommendations with Willis catheter - Do not remove Willis catheter - Willis replaced 08/08/15 Urinary tract infection - Inpatient UA showed large leukoesterase, microbiology showed Pseudomonas species >100,000. - On Keflex 250 mg 4 times a day prior to hospitalization. -Spoke with Dr. Velazco, discuss UA having Pseudomonas species growing. Agrees that it is possibly colonization versus new infection as patient is asymptomatic, afebrile. Will continue with Keflex as recommended. Keflex to continue until Willis is discontinued or changed by urologist. Nasal congestion - patient was given Afrin, please discontinue in 2 days. Might be the reason patient's BP elevation. - Start saline spray DVT prophylaxis: encourage ambulation Discussed with patient, RN and Dr. Barrett 11:33 AM RN called to reports BP had come down to 162/78 with HR 60 Patient medically stable for DC with competent /caregiver recommend continue Flagyl PO for a total of 14 days continue BP medication, captopril 75 mg twice a day, propranolol 40 mg twice a day and amlodipine 2.5 mg by mouth daily. Please have patient follow-up with PCP in the next 2-3 days Please also discharge with Willis in place patient to continue Keflex and follow- up with Dr. Velazco urology Attending Statement The exam, history, and the medical decision-making described in the above note were completed with the assistance of the mid-level provider. I reviewed and agree with the findings presented. I attest that I had a [id number] encounter with the patient on the same day, and personally performed and documented my assessment and findings in the medical record. Problem Qualifiers (1) Adjustment disorder: Qualified Code: F43.23 - Adjustment disorder with mixed anxiety and depressed mood Mine Damian Aug 13, 2016 11:37 Jluis Barrett MD Aug 22, 2016 09:56
[2016-09-09] MEDS ORDERED: TRAM50TA PO (18:06)
== END 2016-08-13 12:35 | disposition home or self-care (01) | DRG 881 ==
LOC: NEDAMB 14:19 → NEDA 18:27 → H4EA 19:24
PROVIDERS: ADMIT Psychiatry & Neurology Psychiatry; ATTEND Psychiatry & Neurology Psychiatry
DX: F32.9 Major depressive disorder, single episode, unspecified (principal); I10 Essential (primary) hypertension; G25.0 Essential tremor; Z95.0 Presence of cardiac pacemaker; E78.00 Pure hypercholesterolemia, unspecified; H91.93 Unspecified hearing loss, bilateral; K21.9 Gastro-esophageal reflux disease without esophagitis; E78.5 Hyperlipidemia, unspecified; Z87.891 Personal history of nicotine dependence; N40.1 Benign prostatic hyperplasia with lower urinary tract symptoms; R33.8 Other retention of urine
CPT/HCPCS: 80048; 80053; 80061; 80307; 80320; 80329; 81001; 83036; 83735; 85025; 87077; 87086; 87186; 87493; 99285; G0480

== ENCOUNTER 2016-08-17 15:05 | Inpatient (IN) | payer MEDICARE, OTHER ==
[~2016-08-17] VITALS: Ht 167.6 cm; Wt 74.2 kg
[~2016-08-17 15:05] MED LIST changes: -ADVI200C5 PO; -ALFU10TA2 PO; -AMOX875T PO; -BENZ100 PO; -BETH10TA2 PO; +CAPT25TA2 PO; +CEPH250C PO; -COLA100C3 PO; -FLUT1SPR9 EACH NARE; -MACR100C2 PO; -MAPA500C PO; +METR-1 PO; +NORV2.5T PO; -OMEP20TA PO; -PRESCAP5 PO; -PRIM50TA5 PO; +PROP40TA3 PO; +VENL75XR PO; -VITA1000 PO; -[UNRECOGNIZED DRUG - OTHER] EACH NARE
[2016-08-17 15:07] VITALS: BP 135/72; PULSE 79; RESP 17; TEMP 98.7; O2SAT 99
[2016-08-17] MEDS ORDERED: SODIUM CHLORIDE 0.9% FLUSH 5 ML FLUSH IVF PRN (15:15)
[2016-08-17] MEDS ORDERED: ONDANSETRON HCL 4 MG/2 ML VIAL IVP ONE (15:15)
--- NOTE | 2016-08-17 15:21 | PD ---
HPI Chief Complaint: Syncope/Near-Syncope Time Seen by Provider: 15:16 Travel History International Travel<30 days: No Contact w/Intl Traveler<30days: No Traveled to known affect area: No History of Present Illness HPI 89-year-old male with PMH of BPH, HTN, GERD, A. fib status post pacemaker insertion presents to the ED via EMS for evaluation of syncopal episode. Patient states that he was at home, stood up, felt dizzy, fell, hit his head. He denies loss of consciousness. States that the dizziness resolves spontaneously. Endorses other episodes with standing up from sitting positions this morning as well. He endorses one episode of vomiting this morning. He denies ongoing nausea. He denies recent history of fever, chills, headache, vision changes, chest pain, palpitations, shortness of breath, cough, abdominal pain, changes in bowel habits. Patient is currently on antibiotics and has a Willis catheter for UTI. He is followed by PCP ------ Dr. Miranda cardiology, Dr. Velazco, urology. PFSH Past Medical History Hx Anticoagulant Therapy: No Heart Rhythm Problems: Yes Cancer: No Cardiovascular Problems: Yes (PACEMAKER) High Cholesterol: Yes Chest Pain: No Congestive Heart Failure: No Cerebrovascular Accident: No Diminished Hearing: Yes ([employer] hearing aids) GERD: Yes Genitourinary: Yes (Enlarged Prostate) Hypertension: Yes Immune Disorder: No Kidney Stones: No Musculoskeletal: No Neurologic: Yes (ESSENTIAL TREMORS) Psychiatric: No Reproductive: No Respiratory: No Immunizations Current: Yes Migraines: No Renal Failure: No Seizures: No Past Surgical History Abdominal Surgery: No Cardiac Surgery: Yes (PACER) Ear Surgery: No Endocrine Surgery: Yes (goiter) Eye Surgery: Yes (BILAT CATARACT) Genitourinary Surgery: Yes (TURP and 2015) Gynecologic Surgery: No Oral Surgery: No Pacemaker: Yes Thoracic Surgery: No Other Surgery: Yes ( GOITER REMOVED) Social History Alcohol Use: No Tobacco Use: No (QUIT 1964) Substance Use: No Allergies-Medications (Allergen,Severity, Reaction): Coded Allergies: No Known Allergies (Unverified , 08/17/16) Reported Meds & Prescriptions Reported Meds & Active Scripts Active Effexor XR 24 HR (Venlafaxine HCl) 75 Mg Cap 75 Mg PO DAILY 0 Days Norvasc (Amlodipine Besylate) 2.5 Mg Tab 2.5 Mg PO DAILY Propranolol (Propranolol HCl) 40 Mg Tab 40 Mg PO BID 30 Days Cephalexin 250 Mg Cap 250 Mg PO QID 10 Days Captopril 25 Mg Tab 75 Mg PO BIDAC 30 Days Flagyl (Metronidazole) 500 Mg Tab 500 Mg PO Q8HR 14 Days Review of Systems Except as stated in HPI: all other systems reviewed are Neg Physical Exam Narrative GENERAL: Well-nourished, well-developed nontoxic appearing white male in no acute distress. SKIN: Warm and dry. HEAD: Normocephalic. Atraumatic. EYES: No scleral icterus. No injection or drainage. PERRLA. EOMI. NECK: Supple, trachea midline. No JVD or lymphadenopathy. No carotid bruits. CARDIOVASCULAR: Regular rate and rhythm without murmurs, gallops, or rubs. RESPIRATORY: Breath sounds clear and equal bilaterally. No accessory muscle use. GASTROINTESTINAL: Abdomen soft, non-tender, nondistended. Active bowel sounds. MUSCULOSKELETAL: No cyanosis, or edema. NEUROLOGICAL: Awake and alert. Cranial nerves II through XII intact. Motor and sensory grossly within normal limits. Five out of 5 muscle strength in all muscle groups. Normal speech. BACK: Nontender without obvious deformity. No CVA tenderness. Data Data Last Documented VS Vital Signs Date Time Temp Pulse Resp B/P Pulse Ox O2 Delivery O2 Flow Rate FiO2 08/17/16 16:51 78 16 141/83 95 Room Air 08/17/16 15:07 98.7 Orders Electrocardiogram (08/17/16 15:13) Complete Blood Count With Diff (08/17/16 15:13) Comprehensive Metabolic Panel (08/17/16 15:13) Magnesium (Mg) (08/17/16 15:13) Ckmb (Isoenzyme) Profile (08/17/16 15:13) Troponin I (08/17/16 15:13) Act Partial Throm Time (Ptt) (08/17/16 15:13) Prothrombin Time / Inr (Pt) (08/17/16 15:13) Urinalysis - C+S If Indicated (08/17/16 15:13) Chest, Single Ap (08/17/16 15:13) Ct Brain W/O Iv Contrast(Rout) (08/17/16 15:13) Ct Cerv Spine W/O Contrast (08/17/16 15:13) Blood Glucose (08/17/16 15:13) Ecg Monitoring (08/17/16 15:13) Iv Access Insert/Monitor (08/17/16 15:13) Oximetry (08/17/16 15:13) Ondansetron Inj (Zofran Inj) (08/17/16 15:15) Sodium Chloride 0.9% Flush (Ns Flush) (08/17/16 15:15) Blood Culture (08/17/16 15:22) Urine Culture (08/17/16 15:27) Calcium Carbonate (Oscal) (08/17/16 16:30) Piperacil-Tazo 4.5 Gm Premix (Zosyn 4.5 (08/17/16 16:32) Orthostatic Blood Pressure (08/17/16 16:44) Lactic Acid Sepsis Protocol (08/17/16 17:03) Admit Order (Ed Use Only) (08/17/16 17:03) Labs Laboratory Tests Test 08/17/16 15:27 White Blood Count 8.3 TH/MM3 Red Blood Count 4.37 MIL/MM3 Hemoglobin 13.7 GM/DL Hematocrit 39.0 % Mean Corpuscular Volume 89.2 FL Mean Corpuscular Hemoglobin 31.5 PG Mean Corpuscular Hemoglobin 35.3 % Concent Red Cell Distribution Width 14.5 % Platelet Count 189 TH/MM3 Mean Platelet Volume 7.4 FL Neutrophils (%) (Auto) 83.1 % Lymphocytes (%) (Auto) 6.5 % Monocytes (%) (Auto) 8.9 % Eosinophils (%) (Auto) 1.0 % Basophils (%) (Auto) 0.5 % Neutrophils # (Auto) 6.9 TH/MM3 Lymphocytes # (Auto) 0.5 TH/MM3 Monocytes # (Auto) 0.7 TH/MM3 Eosinophils # (Auto) 0.1 TH/MM3 Basophils # (Auto) 0.0 TH/MM3 CBC Comment DIFF FINAL Differential Comment Prothrombin Time 10.8 SEC Prothromb Time International 1.0 RATIO Ratio Activated Partial 29.2 SEC Thromboplast Time Urine Color YELLOW Urine Turbidity HAZY Urine pH 5.5 Urine Specific [place] 1.021 Urine Protein 30 mg/dL Urine Glucose (UA) TRACE mg/dL Urine Ketones 10 mg/dL Urine Occult Blood TRACE Urine Nitrite NEG Urine Bilirubin NEG Urine Urobilinogen LESS THAN 2.0 MG/DL Urine Leukocyte Esterase LARGE Urine RBC 12 /hpf Urine WBC 136 /hpf Urine Bacteria RARE /hpf Urine Mucus FEW /lpf Microscopic Urinalysis Comment CULTURE INDICATED Sodium Level 138 MEQ/L Potassium Level 3.5 MEQ/L Chloride Level 107 MEQ/L Carbon Dioxide Level 22.8 MEQ/L Anion Gap 8 MEQ/L Blood Urea Nitrogen 20 MG/DL Creatinine 0.96 MG/DL Estimat Glomerular Filtration 74 ML/MIN Rate Random Glucose 133 MG/DL Calcium Level 7.7 MG/DL Magnesium Level 1.7 MG/DL Total Bilirubin 0.3 MG/DL Aspartate Amino Transf 10 U/L (AST/SGOT) Alanine Aminotransferase 11 U/L (ALT/SGPT) Alkaline Phosphatase 53 U/L Total Creatine Kinase 24 U/L Troponin I LESS THAN 0.02 NG/ML Total Protein 5.3 GM/DL Albumin 2.8 GM/DL MDM Medical Decision Making Medical Screen Exam Complete: Yes Emergency Medical Condition: Yes Interpretation(s) EKG rate 78, atrial fibrillation, RBBB, no ischemic changes. Reviewed by Dr. Morataya Differential Diagnosis A. fib versus orthostatic hypotension versus UTI versus sepsis versus other Narrative Course 89-year-old male with PMH of BPH, HTN, GERD, A. fib status post pacemaker insertion presents to the ED via EMS for evaluation of syncopal episode. Patient states that he was at home, stood up, felt dizzy, fell, hit his head. He denies loss of consciousness. He endorses one episode of vomiting this morning. He denies ongoing nausea. He denies recent history of fever, chills, headache, vision changes, chest pain, palpitations, shortness of breath, cough, abdominal pain, changes in bowel habits. Patient is currently on Keflex at home and has a Willis catheter for BPH. He is followed by PCP ------ Dr. Miranda cardiology, Dr. Velazco, urology. Vitals reviewed, within normal limits on presentation. Physical exam reveals a nontoxic-appearing white male in no acute distress. No focal neural deficits. Heart rate irregular, M/R/G. Lungs clear to auscultation bilaterally. Abdomen nontender, nondistended, active bowel sounds. Indwelling urinary catheter with pale yellow urine in the bag. Patient was placed on continuous monitoring and a liter of IV fluids was administered. CBC WBC 8.3. Hemoglobin 13.7. INR is 1.0. CMP: Calcium 7.7. Administered 1000 mg calcium orally. Orthostatic BP: POSITIVE Cardiac enzymes negative EKG as above CXR: Minimal basilar scarring and atelectasis without effusion or pneumothorax per radiology read. UA: Hazy, 10 ketones, trace occult blood, large leukocyte Estrace, 136 WBCs, rare bacteria, culture pending. CT brain: No acute intracranial abnormality per radiology read CT cervical spine: No acute bony abnormality. Moderate degenerative disc disease and facet arthropathy per radiology read. Review of the patient's record reveals last urinalysis grew Pseudomonas. IV Zosyn ordered. Patient's dizzy spells continued throughout his stay, orthostatic vitals positive. Discussed this patient, workup and planning care with Dr. Morataya. She spoke with Dr. Bishop agrees to admit this patient to the medicine service for further evaluation of chronic UTI and new syncopal episodes. Please medicine notes for disposition. Diagnosis Primary Impression: UTI (urinary tract infection) Qualified Code: T83.511A - Urinary tract infection associated with indwelling urethral catheter, initial encounter Additional Impression: Syncopal episodes Qualified Code: R55 - Syncope, unspecified syncope type Yelitza Leal Aug 17, 2016 15:21
[2016-08-17 15:58] LABS: BACTERIA, URINE RARE /hpf; BLOOD, URINE TRACE (NEG); COMMENT (UR) CULTURE INDICATED; CULTURE IF INDICATED CULTURE INDICATED; GLUCOSE,URINE TRACE mg/dL (NEG); KETONE, URINE 10 mg/dL (NEG); MUCUS URINE FEW /lpf (OCC); NITRITE,URINE NEG (NEG); PH, URINE 5.5 (5.0-8.5); URINE COLOR YELLOW (YELLW/STRAW)
[2016-08-17 15:59] LABS: AUTOMATED NEUTROPHIL # 6.9 TH/MM3 (1.8-7.7); BASOPHIL % 0.5 % (0.0-2.0); EOSINOPHIL # 0.1 TH/MM3 (0-0.4); HEMO FLAGS DIFF FINAL; LYMPH % 6.5 % (9.0-44.0); LYMPHOCYTE # 0.5 TH/MM3 (1.0-4.8); MEAN CELL VOLUME 89.2 FL (80.0-100.0); MEAN CORPUSCULAR HEMOGLOBIN 31.5 PG (27.0-34.0); MEAN CORPUSCULAR HGB CONC 35.3 % (32.0-36.0); MONO % 8.9 % (0.0-8.0); NEUT % 83.1 % (16.0-70.0); PLATELET COUNT 189 TH/MM3 (150-450); RED BLOOD COUNT 4.37 MIL/MM3 (4.50-5.90); RED CELL DISTRIBUTION WIDTH 14.5 % (11.6-17.2); WHITE BLOOD COUNT 8.3 TH/MM3 (4.0-11.0)
--- NOTE | 2016-08-17 16:03 | RADRPT ---
EXAM DATE/TIME: 08/17/2016 15:36 [facility] COMPARISON: No previous studies available for comparison. INDICATIONS : Shortness of breath. MEDICAL HISTORY : Chronic obstructive pulmonary disease. SURGICAL HISTORY : Pacemaker. ENCOUNTER: Initial ACUITY: 1 day PAIN SCORE: 0/10 LOCATION: Bilateral chest FINDINGS: A single view of the chest demonstrates the lungs to be symmetrically aerated without evidence of mas s, infiltrate or effusion. Minimal basilar scarring or atelectasis. Pacer leads overlie the right atr ium and right ventricle. The cardiomediastinal contours are unremarkable. Osseous structures are int act. CONCLUSION: 1. Minimal basilar scarring and atelectasis. No effusion or pneumothorax. Pacer leads overlie right a trium and right ventricle. Nahun Shen MD on August 17, 2016 at 16:01 Board Certified Radiologist. This report was verified electronically.
[2016-08-17 16:05] LABS: APTT (PATIENT) 29.2 SEC (24.3-30.1); PROTHROMBIN TIME - PATIENT 10.8 SEC (9.8-11.6)
[2016-08-17 16:09] LABS: ALT (GPT) 11 U/L (12-78); ANION GAP 8 MEQ/L (5-15); AST (GOT) 10 U/L (15-37); BICARBONATE 22.8 MEQ/L (21.0-32.0); BLOOD UREA NITROGEN 20 MG/DL (7-18); CHLORIDE 107 MEQ/L (98-107); GLOMERULAR FILTRATION RATE 74 ML/MIN (>89); MAGNESIUM 1.7 MG/DL (1.5-2.5); POTASSIUM 3.5 MEQ/L (3.5-5.1); SODIUM (NA) 138 MEQ/L (136-145)
[2016-08-17 16:12] LABS: ALKALINE PHOSPHATASE 53 U/L (45-117); TOTAL BILIRUBIN ADULT 0.3 MG/DL (0.2-1.0)
[2016-08-17 16:14] LABS: CREATINE KINASE 24 U/L (39-308)
[2016-08-17] MEDS ORDERED: CALCIUM CARBONATE 1.25 GM (CA 500 MG) TAB PO ONE (16:30)
[2016-08-17] MEDS ORDERED: PIPERACIL-TAZO 4.5 GM PREMIX 100 ML IV STA (16:32)
--- NOTE | 2016-08-17 16:33 | RADRPT ---
EXAM DATE/TIME: 08/17/2016 16:05 [facility] COMPARISON: No previous studies available for comparison. INDICATIONS : Trauma; syncopal episode. RADIATION DOSE: 56.35 CTDIvol (mGy) MEDICAL HISTORY : Cardiovascular disease. Hypertension. SURGICAL HISTORY : None. ENCOUNTER: Initial ACUITY: 1 day PAIN SCALE: 5/10 LOCATION: cranial TECHNIQUE: Multiple contiguous axial images were obtained of the head. Using automated exposure control and adj ustment of the mA and/or kV according to patient size, radiation dose was kept as low as reasonably a chievable to obtain optimal diagnostic quality images. FINDINGS: There is cortical volume loss and white matter ischemic changes. 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 No recent infarct identified. No mass, hemorrhage or m idline shift. No acute bony abnormalities. CONCLUSION: 1. No acute intracranial abnormalities. Nahun Shen MD on August 17, 2016 at 16:29 Board Certified Radiologist. This report was verified electronically.
--- NOTE | 2016-08-17 16:37 | RADRPT ---
EXAM DATE/TIME: 08/17/2016 16:07 [facility] COMPARISON: No previous studies available for comparison. INDICATIONS : Trauma; syncopal episode. RADIATION DOSE: 35.24 CTDIvol (mGy) MEDICAL HISTORY : Cardiovascular disease. Hypertension. SURGICAL HISTORY : None. ENCOUNTER: Initial ACUITY: 1 day PAIN SCALE: 5/10 LOCATION: Bilateral neck TECHNIQUE: Volumetric scanning of the cervical spine was performed. Multiplanar reconstructions in the sagittal, coronal and oblique axial planes were performed. Using automated exposure control and adjustment o f the mA and/or kV according to patient size, radiation dose was kept as low as reasonably achievable to obtain optimal diagnostic quality images. FINDINGS: There is moderate degenerative disc disease in cervical spine. Moderate facet arthropathy. No acute f racture or or subluxation. No prevertebral soft tissue swelling. CONCLUSION: 1. 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 No acute bony abno rmalities. Nahun Shen MD on August 17, 2016 at 16:31 Board Certified Radiologist. This report was verified electronically.
[2016-08-17 16:51] VITALS: BP_SYST 119; BP_SYST 141; BP_SYST 83; BP_DIAS 46; BP_DIAS 65; BP_DIAS 83; PULSE 78; RESP 14; RESP 15; RESP 16; O2SAT 95
--- NOTE | 2016-08-17 17:11 | PD ---
Physical Exam Date Seen by Provider: Aug 17, 2016 Time Seen by Provider: 16:00 Narrative I, Dr. Morataya, have reviewed the advance practice practitioner's documentation and am in agreement, met with the patient face to face, made the diagnosis, and the medical decision making was done by me. *My assessment and Findings: Patient seen and evaluated with PA, please see PA note for further information. Patient presents to the ER after syncope on standing today. He fell down, hit his head. Questionable loss of consciousness. He has been having an indwelling Willis and dealing with a UTI, has Keflex for the UTI. He reports not feeling well. On exam, he is conversant , alert and oriented although very hard of hearing. Pulmonary and cardiac exams were unremarkable. Abdomen is nontender, soft, benign. However, he is quite orthostatic on orthostatic testing. IV fluids were given in the ER. EKG shows A. fib at a rate of 78 bpm with no signs of acute ST-T changes. Laboratory Tests Test 08/17/16 15:27 Red Blood Count 4.37 MIL/MM3 (4.50-5.90) Neutrophils (%) (Auto) 83.1 % (16.0-70.0) Lymphocytes (%) (Auto) 6.5 % (9.0-44.0) Monocytes (%) (Auto) 8.9 % (0.0-8.0) Lymphocytes # (Auto) 0.5 TH/MM3 (1.0-4.8) Urine Turbidity HAZY (CLEAR) Urine Protein 30 mg/dL (NEG-TRACE) Urine Ketones 10 mg/dL (NEG) Urine Occult Blood TRACE (NEG) Urine Leukocyte Esterase LARGE (NEG) Urine RBC 12 /hpf (0-3) Urine WBC 136 /hpf (0-5) Urine Bacteria RARE /hpf (NONE) Urine Mucus FEW /lpf (OCC) Blood Urea Nitrogen 20 MG/DL (7-18) Estimat Glomerular Filtration 74 ML/MIN (>89) Rate Random Glucose 133 MG/DL (74-106) Calcium Level 7.7 MG/DL (8.5-10.1) Aspartate Amino Transf 10 U/L (15-37) (AST/SGOT) Alanine Aminotransferase 11 U/L (12-78) (ALT/SGPT) Total Creatine Kinase 24 U/L (39-308) Troponin I LESS THAN 0.02 NG/ML (0.02-0.05) Total Protein 5.3 GM/DL (6.4-8.2) Albumin 2.8 GM/DL (3.4-5.0) Last [address] 08/17/[id number] Signed Impressions: Service Date/Time: Wednesday, August 17, 2016 16:05 - CONCLUSION: 1. No acute intracranial abnormalities. Nahun Shen MD Chest X-Ray 08/17/[id number] Signed Impressions: Service Date/Time: Wednesday, August 17, 2016 15:36 - CONCLUSION: 1. Minimal basilar scarring and atelectasis. No effusion or pneumothorax. Pacer leads overlie right atrium and right ventricle. Nahun Shen MD Cervical Spine CT 08/17/[id number] Signed Impressions: Service Date/Time: Wednesday, August 17, 2016 16:07 - CONCLUSION: 1. 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 No acute bony abnormalities. Nahun Shen MD CT of the brain did not reveal any signs of acute injuries. Lab work shows significant UTI. He is quite orthostatic and IV antibiotics were initiated with cultures for concern of underlying sepsis. At this point, case is discussed with Dr. Bishop for admission. Data Data Last Documented VS Vital Signs Date Time Temp Pulse Resp B/P Pulse Ox O2 Delivery O2 Flow Rate FiO2 08/17/16 16:51 78 16 141/83 95 Room Air 08/17/16 15:07 98.7 Orders Electrocardiogram (08/17/16 15:13) Complete Blood Count With Diff (08/17/16 15:13) Comprehensive Metabolic Panel (08/17/16 15:13) Magnesium (Mg) (08/17/16 15:13) Ckmb (Isoenzyme) Profile (08/17/16 15:13) Troponin I (08/17/16 15:13) Act Partial Throm Time (Ptt) (08/17/16 15:13) Prothrombin Time / Inr (Pt) (08/17/16 15:13) Urinalysis - C+S If Indicated (08/17/16 15:13) Chest, Single Ap (08/17/16 15:13) Ct Brain W/O Iv Contrast(Rout) (08/17/16 15:13) Ct Cerv Spine W/O Contrast (08/17/16 15:13) Blood Glucose (08/17/16 15:13) Ecg Monitoring (08/17/16 15:13) Iv Access Insert/Monitor (08/17/16 15:13) Oximetry (08/17/16 15:13) Ondansetron Inj (Zofran Inj) (08/17/16 15:15) Sodium Chloride 0.9% Flush (Ns Flush) (08/17/16 15:15) Blood Culture (08/17/16 15:22) Urine Culture (08/17/16 15:27) Calcium Carbonate (Oscal) (08/17/16 16:30) Piperacil-Tazo 4.5 Gm Premix (Zosyn 4.5 (08/17/16 16:32) Orthostatic Blood Pressure (08/17/16 16:44) Lactic Acid Sepsis Protocol (08/17/16 17:03) Admit Order (Ed Use Only) (08/17/16 17:03) Admit To Inpatient (08/17/16 17:04) Vital Signs (Adult) Q4H (08/17/16 17:04) Activity Bed Rest (08/17/16 17:04) Diet Heart Healthy (08/17/16 Dinner) Basic Metabolic Panel (Bmp) (08/18/16 06:00) Complete Blood Count With Diff (08/18/16 06:00) Scd Bilateral/Knee High YESSENIA.QSHIFT (08/17/16 17:04) Sodium Chlor 0.9% 1000 Ml Inj (Ns 1000 M (08/17/16 17:15) Labs Laboratory Tests Test 08/17/16 15:27 White Blood Count 8.3 TH/MM3 Red Blood Count 4.37 MIL/MM3 Hemoglobin 13.7 GM/DL Hematocrit 39.0 % Mean Corpuscular Volume 89.2 FL Mean Corpuscular Hemoglobin 31.5 PG Mean Corpuscular Hemoglobin 35.3 % Concent Red Cell Distribution Width 14.5 % Platelet Count 189 TH/MM3 Mean Platelet Volume 7.4 FL Neutrophils (%) (Auto) 83.1 % Lymphocytes (%) (Auto) 6.5 % Monocytes (%) (Auto) 8.9 % Eosinophils (%) (Auto) 1.0 % Basophils (%) (Auto) 0.5 % Neutrophils # (Auto) 6.9 TH/MM3 Lymphocytes # (Auto) 0.5 TH/MM3 Monocytes # (Auto) 0.7 TH/MM3 Eosinophils # (Auto) 0.1 TH/MM3 Basophils # (Auto) 0.0 TH/MM3 CBC Comment DIFF FINAL Differential Comment Prothrombin Time 10.8 SEC Prothromb Time International 1.0 RATIO Ratio Activated Partial 29.2 SEC Thromboplast Time Urine Color YELLOW Urine Turbidity HAZY Urine pH 5.5 Urine Specific [place] 1.021 Urine Protein 30 mg/dL Urine Glucose (UA) TRACE mg/dL Urine Ketones 10 mg/dL Urine Occult Blood TRACE Urine Nitrite NEG Urine Bilirubin NEG Urine Urobilinogen LESS THAN 2.0 MG/DL Urine Leukocyte Esterase LARGE Urine RBC 12 /hpf Urine WBC 136 /hpf Urine Bacteria RARE /hpf Urine Mucus FEW /lpf Microscopic Urinalysis Comment CULTURE INDICATED Sodium Level 138 MEQ/L Potassium Level 3.5 MEQ/L Chloride Level 107 MEQ/L Carbon Dioxide Level 22.8 MEQ/L Anion Gap 8 MEQ/L Blood Urea Nitrogen 20 MG/DL Creatinine 0.96 MG/DL Estimat Glomerular Filtration 74 ML/MIN Rate Random Glucose 133 MG/DL Calcium Level 7.7 MG/DL Magnesium Level 1.7 MG/DL Total Bilirubin 0.3 MG/DL Aspartate Amino Transf 10 U/L (AST/SGOT) Alanine Aminotransferase 11 U/L (ALT/SGPT) Alkaline Phosphatase 53 U/L Total Creatine Kinase 24 U/L Troponin I LESS THAN 0.02 NG/ML Total Protein 5.3 GM/DL Albumin 2.8 GM/DL [facility] Medical Record Reviewed: Yes Supervised Visit with RONALDO: Yes Diagnosis Primary Impression: UTI (urinary tract infection) Qualified Code: T83.511A - Urinary tract infection associated with indwelling urethral catheter, initial encounter Additional Impression: Syncopal episodes Qualified Code: R55 - Syncope, unspecified syncope type Admitting Information Admitting Physician Requests: Admit Tara Morataya MD Aug 17, 2016 17:11
--- NOTE | 2016-08-17 17:12 | HHI.HP ---
[facility] Admission Diagnosis UTI/sepsis/syncope Diagnoses: Chief Complaint: syncope Travel History International Travel<30 Days: No Contact w/Intl Traveler <30 Da: No Traveled to Known Affected Are: No History of Present Illness This is 89 y/o male with a history of HTN, enlarged prostate, and hyperlipidemia. Patient is a poor historian therefore information gathered from patient patient's and prior computerized charting. He was recently discharged from [facility] on 08/13/2016 with C. difficile colitis and pantoja catheter in place for urinary retention. It is unclear whether the patient continue his by mouth Flagyl at home. Patient continues to have 2-3 loose bowel movements per day. Patient reports tenderness he and his had breakfast this morning when he arrived home from breakfast he had stomach pains and he vomited several times. Patient then got up from his chair was walking and fell and hitting the left side of his head. Patient does report he lost consciousness for a few minutes. Patient's was in the next room and came in to assist him and called 911. Upon arrival to the emergency department patient was found to have atrial fibrillation on telemetry EKG pending. Patient does not recall any history of atrial fibrillation. Patient at this time reports feeling well denies chest pain shortness of breath nausea or abdominal pain. Review of Systems Except as stated in HPI: all other systems reviewed are Neg Past Family Social History Past Medical History HTN Hyperlipidemia Enlarged prostate [place] Past Surgical History Bilateral cataracts pacemaker TURP goiter removed Reported Medications Effexor XR 24 HR (Venlafaxine HCl) 75 Mg Cap 75 Mg PO DAILY 0 Days Norvasc (Amlodipine Besylate) 2.5 Mg Tab 2.5 Mg PO DAILY Propranolol (Propranolol HCl) 40 Mg Tab 40 Mg PO BID 30 Days Cephalexin 250 Mg Cap 250 Mg PO QID 10 Days Captopril 25 Mg Tab 75 Mg PO BIDAC 30 Days Flagyl (Metronidazole) 500 Mg Tab 500 Mg PO Q8HR 14 Days Allergies: Coded Allergies: No Known Allergies (Unverified , 08/17/16) Active Ordered Medications Current Medications Medications (Trade) Dose Ordered Sig/Sarita Route Start Time Stop Time Status Last Admin IV Flush 2 ml 2 ml UNSCH PRN IVF 08/17/16 15:15 (NS 1000 ml Inj) 1,000 ml @ 100 mls/hr Q10H IV 08/17/16 17:15 UNV Family History Dad: Prostate cancer Social History Tobacco use: Quit 1965 Alcohol use: Denies Illicit drug use: Denies Physical Exam Vital Signs Vital Signs Date Time Temp Pulse Resp B/P Pulse Ox O2 Delivery O2 Flow Rate FiO2 08/17/16 16:51 78 16 141/83 95 Room Air 08/17/16 16:51 77 14 141/83 104 15 119/65 121 15 83/46 08/17/16 15:07 98.7 79 17 135/72 99 Physical Exam GENERAL: This is a well-nourished, well-developed patient, in no apparent distress. Hard of hearing. HEENT: Normocephalic. Pupils equal round and reactive. Nose without bleeding. Airway patent. NECK: Trachea midline. No JVD. Supple. CARDIOVASCULAR: Regular rate and rhythm without murmurs, gallops, or rubs. RESPIRATORY: Clear to auscultation. Breath sounds equal bilaterally. No wheezes , rales, or rhonchi. GASTROINTESTINAL: Abdomen soft, non-tender, nondistended. Bowel Sounds normoactive x4. : Pantoja in place draining yellow urine clear. MUSCULOSKELETAL: Extremities without clubbing, cyanosis, or edema. NEUROLOGICAL: Awake and alert. Oriented x 3. No focal neuro deficit. HERMAN. Normal speech. Laboratory Laboratory Tests Test 08/17/16 15:27 White Blood Count 8.3 Red Blood Count 4.37 Hemoglobin 13.7 Hematocrit 39.0 Mean Corpuscular Volume 89.2 Mean Corpuscular Hemoglobin 31.5 Mean Corpuscular Hemoglobin 35.3 Concent Red Cell Distribution Width 14.5 Platelet Count 189 Mean Platelet Volume 7.4 Neutrophils (%) (Auto) 83.1 Lymphocytes (%) (Auto) 6.5 Monocytes (%) (Auto) 8.9 Eosinophils (%) (Auto) 1.0 Basophils (%) (Auto) 0.5 Neutrophils # (Auto) 6.9 Lymphocytes # (Auto) 0.5 Monocytes # (Auto) 0.7 Eosinophils # (Auto) 0.1 Basophils # (Auto) 0.0 CBC Comment DIFF FINAL Differential Comment Prothrombin Time 10.8 Prothromb Time International 1.0 Ratio Activated Partial 29.2 Thromboplast Time Urine Color YELLOW Urine Turbidity HAZY Urine pH 5.5 Urine Specific [place] 1.021 Urine Protein 30 Urine Glucose (UA) TRACE Urine Ketones 10 Urine Occult Blood TRACE Urine Nitrite NEG Urine Bilirubin NEG Urine Urobilinogen LESS THAN 2.0 Urine Leukocyte Esterase LARGE Urine RBC 12 Urine WBC 136 Urine Bacteria RARE Urine Mucus FEW Microscopic Urinalysis Comment CULTURE INDICATED Sodium Level 138 Potassium Level 3.5 Chloride Level 107 Carbon Dioxide Level 22.8 Anion Gap 8 Blood Urea Nitrogen 20 Creatinine 0.96 Estimat Glomerular Filtration 74 Rate Random Glucose 133 Calcium Level 7.7 Magnesium Level 1.7 Total Bilirubin 0.3 Aspartate Amino Transf 10 (AST/SGOT) Alanine Aminotransferase 11 (ALT/SGPT) Alkaline Phosphatase 53 Total Creatine Kinase 24 Troponin I LESS THAN 0.02 Total Protein 5.3 Albumin 2.8 Date/Time Procedure Status Source Growth 08/17/16 15:50 Aerobic Blood Culture Received Blood Line Pending 08/17/16 15:50 Anaerobic Blood Culture Received Blood Line Pending 08/17/16 15:27 Urine Culture Received Urine Clean Catch Pending Result Diagram: 08/17/16 1527 08/17/16 1527 Imaging Last Impressions Head CT 08/17/161512 Signed Impressions: Service Date/Time: Wednesday, August 17, 2016 16:05 - CONCLUSION: 1. No acute intracranial abnormalities. Nahun Shen MD Chest X-Ray 08/17/161512 Signed Impressions: Service Date/Time: Wednesday, August 17, 2016 15:36 - CONCLUSION: 1. Minimal basilar scarring and atelectasis. No effusion or pneumothorax. Pacer leads overlie right atrium and right ventricle. Nahun Shen MD Cervical Spine CT 08/17/161512 Signed Impressions: Service Date/Time: Wednesday, August 17, 2016 16:07 - CONCLUSION: 1. 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 No acute bony abnormalities. Nahun Shen MD Assessment and Plan Assessment and Plan Patient is an 89-year-old white male with primary history of hypertension, enlarged prostate, HLD who came in under Lopez act secondary to self harm. Admitted to inpatient medical psych unit for further evaluation. Consulted for medical management. Syncope Orthostatic hypotension Likely secondary to dehydration Continuous IV fluids normal saline 100 cc per hour Continuous telemetry monitoring UTI- continue Zosyn Await culture results ? Atrial Fibrillation possibly new onset Await EKG interrogate pacemaker Recent stool for C. difficile positive 027 neg on 08/11/2016 Flagyl 500mg PO stop date 08/25/2016 Recheck stool for C. difficile Hypertension Hold Amlodipine 2.5 mg daily and captopril 75mg twice a day continue propranolol 40 BID Monitor BP trend Urinary retention BPH, chronic Pantoja replaced 08/08/15 Now with UTI change Pantoja catheter Major depressive disorder Effexor 75mg daily DVT prophylaxis SCDs Discussed with patient, RN and Dr. Bishop Attestation Patient seen and examined with Mine Damian PA-C. The exam, history, and the medical decision-making described in the above note were completed with the assistance of the dictating practitioner. I attest that I had a [id number] encounter with the patient on the same day, and personally performed all of the history, exam, or medical decision making. Discussed case with her thoroughly after seeing the patient, reviewed and agreed with the plan. Please see addendum in History, Physical examination. See below for any errata/additional input: This is an 89 year-old male with history of hypertension dyslipidemia, poor historian, presenting to the hospital with syncopal episodes and diarrhea about 2-3 times a day associated with abdominal pain, nausea and vomiting. No note of fever or chills. Patient has a chronic indwelling catheter. Of note, patient recently had an episode of C. difficile diarrhea allegedly treated with Flagyl, unknown compliance. No note of atrial fibrillation but patient has a pacemaker. Not in distress Hard of hearing Regular rate and rhythm, no murmurs clear breath sounds Abdomen soft, nontender Pantoja catheter with clear yellow urine. Awake alert and oriented 3, no focal deficits. Syncope-could be from dehydration, IVF, check orthostatics, and interrogate pacemaker Diarrhea-send stool for C. difficile, no leukocytosis, doubt C. difficile but empirically start Flagyl, if positive, add vancomycin. ? Atrial fibrillation, sick sinus syndrome-continue propranolol with holding parameters, interrogate pacemaker. EKG personally reviewed, sinus rhythm versus atrial fibrillation?, No ischemic changes UTI-previously had Pseudomonas UTI, sensitive to Zosyn, continue Zosyn for now , double coverage with Levaquin if with lactic acidosis. Physician Certification 2 Midnight Certification Type: Admission for Inpatient Services Order for Inpatient Services The services are ordered in accordance with Medicare regulations or non- Medicare payer requirements, as applicable. In the case of services not specified as inpatient-only, they are appropriately provided as inpatient services in accordance with the 2-midnight benchmark. Estimated LOS (days): 4 days is the estimated time the patient will need to remain in the hospital, assuming treatment plan goals are met and no additional complications. Post-Hospital Plan: Home Mine Damian Aug 17, 2016 17:12 Alan Bishop MD Aug 17, 2016 18:15
[2016-08-17] MEDS: SODIUM CHLOR 0.9% 1000 ML INJ 1,000 ML IV SCH (17:29)
[2016-08-17] MEDS ORDERED: ALFU10TA3 PO (17:50)
[2016-08-17] MEDS ORDERED: OMEP20TA PO (17:50)
[2016-08-17] MEDS ORDERED: PRIM50TA5 PO (17:50)
[2016-08-17 20:00] VITALS: BP 141/75; PULSE 80; PULSE 81; RESP 18; TEMP 97.5; O2SAT 97
[2016-08-17] MEDS: metroNIDAZOLE 500 MG TAB PO SCH (21:58)
[2016-08-17] MEDS: PIPERACIL-TAZO 3.375 GM PREMIX 50 ML IV SCH (21:59)
[2016-08-17] MEDS: ACETAMINOPHEN 325 MG TAB PO PRN (21:59)
[2016-08-18] VITALS: BP 114/57; PULSE 72; RESP 18; TEMP 97.5; O2SAT 96
[2016-08-18] MEDS: ACETAMINOPHEN 325 MG TAB PO PRN ×3 (03:41→20:34)
[2016-08-18] MEDS: SODIUM CHLOR 0.9% 1000 ML INJ 1,000 ML IV SCH ×3 (03:42→23:15)
[2016-08-18 04:00] VITALS: BP 136/67; PULSE 81; RESP 18; TEMP 97.7; O2SAT 96
[2016-08-18] MEDS: metroNIDAZOLE 500 MG TAB PO SCH ×3 (05:25→20:34)
[2016-08-18] MEDS: PIPERACIL-TAZO 3.375 GM PREMIX 50 ML IV SCH ×4 (05:26→23:17)
[2016-08-18 07:12] LABS: AUTOMATED NEUTROPHIL # 6.1 TH/MM3 (1.8-7.7); BASOPHIL % 0.4 % (0.0-2.0); EOSINOPHIL # 0.2 TH/MM3 (0-0.4); EOSINOPHIL % 2.1 % (0.0-4.0); HEMATOCRIT 35.8 % (39.0-51.0); HEMO FLAGS DIFF FINAL; MEAN CELL VOLUME 88.4 FL (80.0-100.0); MEAN CORPUSCULAR HEMOGLOBIN 31.7 PG (27.0-34.0); MEAN CORPUSCULAR HGB CONC 35.9 % (32.0-36.0); MONO % 12.2 % (0.0-8.0); NEUT % 73.3 % (16.0-70.0); PLATELET COUNT 172 TH/MM3 (150-450); RED BLOOD COUNT 4.05 MIL/MM3 (4.50-5.90); RED CELL DISTRIBUTION WIDTH 14.8 % (11.6-17.2); WHITE BLOOD COUNT 8.4 TH/MM3 (4.0-11.0)
[2016-08-18 07:56] LABS: BICARBONATE 27.7 MEQ/L (21.0-32.0); POTASSIUM 3.2 MEQ/L (3.5-5.1)
[2016-08-18] MEDS: VENLAFAXINE HCL XR 75 MG CAP PO SCH (09:27)
[2016-08-18] MEDS ORDERED: PNEUMOCOCCAL POLYVALENT INJ 25 MCG/0.5 ML SYR IM ONE (10:00)
--- NOTE | 2016-08-18 10:15 | HHI.PR ---
Subjective Remarks Follow for diarrhea Diarrhea still present, about the same as yesterday. Still with episodes of dizziness and lightheadedness but no syncope. No fever. No abdominal pain. No nausea or vomiting. No chest pain. Objective Vitals Vital Signs Date Time Temp Pulse Resp B/P Pulse Ox O2 Delivery O2 Flow Rate FiO2 08/18/16 04:00 97.7 81 18 136/67 96 08/18/16 00:00 97.5 72 18 114/57 96 08/17/16 20:00 97.5 81 18 141/75 97 08/17/16 20:00 80 08/17/16 19:30 Room Air 08/17/16 16:51 78 16 141/83 95 Room Air 08/17/16 16:51 77 14 141/83 104 15 119/65 121 15 83/46 08/17/16 15:07 98.7 79 17 135/72 99 I/O 08/17/16 08/17/16 08/17/16 08/18/16 08/18/16 08/18/16 07:00 15:00 23:00 07:00 15:00 23:00 Intake Total 680 ml 781 ml Output Total 250 ml Balance 680 ml 531 ml Intake Oral 240 ml 100 ml IV Total 440 ml 681 ml Output Urine Total 250 ml # Voids 0 # Bowel Movements 1 0 Result Diagram: 08/18/16 0541 08/18/16 0541 Objective Remarks GENERAL: Not in distress. Hard of hearing. HEENT: Normocephalic. Pupils equal round and reactive. Nose without bleeding. Airway patent. NECK: Trachea midline. No JVD. Supple. CARDIOVASCULAR: Regular rate and rhythm without murmurs, gallops, or rubs. RESPIRATORY: Clear to auscultation. Breath sounds equal bilaterally. No wheezes , rales, or rhonchi. GASTROINTESTINAL: Abdomen soft, non-tender, nondistended. Bowel Sounds normoactive x4. : Willis in place draining yellow urine clear. MUSCULOSKELETAL: Extremities without clubbing, cyanosis, or edema. NEUROLOGICAL: Awake and alert. Oriented x 3. No focal neuro deficit. HERMAN. Normal speech. A/P Assessment and Plan Patient is an 89-year-old white male with primary history of hypertension, enlarged prostate, HLD who came in under [place] act secondary to self harm. Syncope, Orthostatic hypotension - secondary to dehydration, continue IVF, continue telemetry. Will recheck orthostatics. UTI- continue Zosyn, follow up urine culture results. ? Atrial Fibrillation possibly new onset - EKG questionable atrial fibrillation , follow-up pacemaker interrogation. Recent stool for C. difficile positive 027 neg on 08/11/2016 - continue Flagyl. Hypertension-continue propranolol, continue to Hold Amlodipine 2.5 mg daily and captopril 75mg twice a day Hypokalemia- replaced Urinary retention BPH, chronic -Willis catheter replaced, monitor. Major depressive disorder Effexor 75mg daily Consult physical therapy. DVT prophylaxis Alan Elizabeth MD Aug 18, 2016 10:14 interrogate pacemaker Recent stool for C. difficile positive 027 neg on 08/11/2016 Flagyl 500mg PO stop date 08/25/2016 Recheck stool for C. difficile Hypertension Hold Amlodipine 2.5 mg daily and captopril 75mg twice a day continue propranolol 40 BID Monitor BP trend Urinary retention BPH, chronic Willis replaced 08/08/15 Now with UTI change Willis catheter Major depressive disorder Effexor 75mg daily DVT prophylaxis Alan Elizabeth MD Aug 18, 2016 10:14
--- NOTE | 2016-08-18 11:11 | EKG ---
Date Performed: 08/17/2016 Time Performed: 15:34:33 PTAGE: 89 years EKG: ATRIAL FIBRILLATION RIGHT BUNDLE BRANCH BLOCK Compared to the prior study atrial fibrillati on has replaced Sinus rhythm . Pacer spiked were noted at that visit, but do not appear present on todays tracing. ABNORMAL ECG PREVIOUS TRACING : 07/26/2016 13.26 DOCTOR: Bert Rosa Interpretating Date/Time 08/18/2016 11:11:26
[2016-08-18 12:00] VITALS: BP 127/66; PULSE 69; RESP 20; TEMP 98.5; O2SAT 95
[2016-08-18 16:00] VITALS: BP_SYST 160; BP_SYST 168; BP_DIAS 68; BP_DIAS 81; BP_DIAS 96; PULSE 81; PULSE 84; PULSE 85; RESP 18; TEMP 97.6; O2SAT 97
[2016-08-18] MEDS ORDERED: POTASSIUM CL 40 MEQ/30 ML LIQ UDC PO ONE (16:00)
[2016-08-18 20:00] VITALS: BP 169/92; PULSE 112; PULSE 89; RESP 20; TEMP 97.7; O2SAT 94
[2016-08-18 22:53] LABS: C. DIFF EPI 027 PRESUMPTIVE NEGATIVE (NEGATIVE)
[2016-08-18 23:00] LABS: C. DIFF TOXIN PCR POSITIVE (NEGATIVE)
[2016-08-19] VITALS (7 sets, daily range): BP systolic 172–210; BP diastolic 90–110; PULSE 84–99; RESP 20–22; TEMP 97.6–99.1; O2SAT 95–97
[2016-08-19] MEDS: ACETAMINOPHEN 325 MG TAB PO PRN ×3 (02:28→23:13)
[2016-08-19] MEDS: metroNIDAZOLE 500 MG TAB PO SCH (05:21)
[2016-08-19] MEDS: PIPERACIL-TAZO 3.375 GM PREMIX 50 ML IV SCH ×2 (05:21→10:46)
[2016-08-19] MEDS: VENLAFAXINE HCL XR 75 MG CAP PO SCH (08:28)
[2016-08-19] MEDS: SODIUM CHLOR 0.9% 1000 ML INJ 1,000 ML IV SCH ×2 (08:29→13:20)
[2016-08-19 09:45] LABS: BICARBONATE 24.7 MEQ/L (21.0-32.0); POTASSIUM 3.4 MEQ/L (3.5-5.1)
[2016-08-19] MEDS ORDERED: LISINOPRIL 20 MG TAB PO SCH (12:48)
--- NOTE | 2016-08-19 12:53 | HHI.PR ---
Subjective Remarks Follow-up for diarrhea Patient still having watery diarrhea, not improving, with mild abdominal pain. No fever or chills, no urinary symptoms. Blood pressure elevated, denies any headache or chest pain. Objective Vitals Vital Signs Date Time Temp Pulse Resp B/P Pulse Ox O2 Delivery O2 Flow Rate FiO2 08/19/16 11:09 Room Air 08/19/16 08:00 97.9 84 20 198/106 97 08/19/16 02:20 95 172/98 Automatic Cuff 08/19/16 00:00 97.6 88 20 180/90 96 08/18/16 20:00 Room Air 08/18/16 20:00 97.7 112 20 169/92 94 08/18/16 20:00 89 08/18/16 16:45 18 08/18/16 16:00 84 160/68 08/18/16 16:00 97.6 81 18 168/81 97 08/18/16 16:00 85 168/96 I/O 08/18/16 08/18/16 08/18/16 08/19/16 08/19/16 08/19/16 07:00 15:00 23:00 07:00 15:00 23:00 Intake Total 781 ml 1448 ml 588 ml Output Total 250 ml 400 ml Balance 531 ml 1048 ml 588 ml Intake Oral 100 ml 480 ml IV Total 681 ml 968 ml 588 ml Output Urine Total 250 ml 400 ml # Bowel Movements 0 3 Result Diagram: 08/18/16 0541 08/19/16 0725 Objective Remarks GENERAL: Not in distress. Hard of hearing. HEENT: Normocephalic. Pupils equal round and reactive. Nose without bleeding. Airway patent. NECK: Trachea midline. No JVD. Supple. CARDIOVASCULAR: Regular rate and rhythm without murmurs, gallops, or rubs. RESPIRATORY: Clear to auscultation. Breath sounds equal bilaterally. No wheezes , rales, or rhonchi. GASTROINTESTINAL: Abdomen soft, mildly tender, nondistended. Bowel Sounds normoactive x4. : Willis in place draining yellow urine clear. MUSCULOSKELETAL: Extremities without clubbing, cyanosis, or edema. NEUROLOGICAL: Awake and alert. Oriented x 3. No focal neuro deficit. HERMAN. Normal speech. A/P Assessment and Plan Patient is an 89-year-old white male with primary history of hypertension, enlarged prostate, HLD who came in under [place] act secondary to self harm. Syncope, Orthostatic hypotension - secondary to dehydration, continue IVF, continue telemetry. Orthostatics negative. UTI-urine culture grew Pseudomonas, sensitive to Levaquin, switch Zosyn to Levaquin. ? Atrial Fibrillation possibly new onset - EKG questionable atrial fibrillation , follow-up pacemaker interrogation. Recent stool for C. difficile positive 027 neg on 08/11/2016 -not improving, switch Flagyl to vancomycin 08/19/16. Recheck CBC and BMP tomorrow. Hypertension, uncontrolled-continue propranolol, restart Norvasc and start lisinopril. Hypokalemia- replaced Consult physical therapy Urinary retention BPH, chronic -Willis catheter replaced, monitor. Major depressive disorder Effexor 75mg daily Consult physical therapy. DVT prophylaxis SCDs Alan Bishop MD Aug 19, 2016 12:53
[2016-08-19] MEDS: amLODIPine BESYLATE 5 MG TAB PO SCH (13:11)
[2016-08-19] MEDS: LEVOFLOXACIN 750 MG PREMIX INJ 150 ML IV SCH (13:11)
[2016-08-19] MEDS: VANCOMYCIN 500 MG VIAL (FOR ORAL USE ONLY) PO SCH ×3 (13:11→21:54)
[2016-08-19] MEDS: TAMSULOSIN HCL 0.4 MG CAP PO SCH (13:29)
[2016-08-19] MEDS: PRIMIDONE 50 MG TAB PO SCH (21:55)
[2016-08-19] MEDS: PROPRANOLOL HCL 20 MG TAB PO SCH (21:55)
[2016-08-20] VITALS (8 sets, daily range): BP systolic 109–200; BP diastolic 60–100; PULSE 69–81; RESP 16–20; TEMP 97.8–98.6; O2SAT 96–97
[2016-08-20] MEDS: SODIUM CHLOR 0.9% 1000 ML INJ 1,000 ML IV SCH ×3 (05:26→23:09)
[2016-08-20] MEDS: ACETAMINOPHEN 325 MG TAB PO PRN ×3 (05:27→23:08)
[2016-08-20] MEDS: VANCOMYCIN 500 MG VIAL (FOR ORAL USE ONLY) PO SCH ×4 (08:37→20:51)
[2016-08-20] MEDS: PANTOPRAZOLE SOD 20 MG DELAYED RELEASE TAB PO SCH (08:38)
[2016-08-20] MEDS: VENLAFAXINE HCL XR 75 MG CAP PO SCH (08:39)
[2016-08-20] MEDS: PROPRANOLOL HCL 20 MG TAB PO SCH ×2 (08:39→20:52)
[2016-08-20] MEDS: LISINOPRIL 5 MG TAB PO SCH (08:39)
[2016-08-20] MEDS: TAMSULOSIN HCL 0.4 MG CAP PO SCH (08:39)
[2016-08-20] MEDS: amLODIPine BESYLATE 5 MG TAB PO SCH (08:39)
[2016-08-20] MEDS: PRIMIDONE 50 MG TAB PO SCH ×2 (08:39→20:52)
[2016-08-20 10:53] LABS: BICARBONATE 22.9 MEQ/L (21.0-32.0); POTASSIUM 3.4 MEQ/L (3.5-5.1)
[2016-08-20] MEDS: LEVOFLOXACIN 750 MG PREMIX INJ 150 ML IV SCH (11:47)
[2016-08-20] MEDS ORDERED: POTASSIUM CHLORIDE 20 MEQ CONTROLLED RELEASE TAB PO ONE (13:30)
--- NOTE | 2016-08-20 18:25 | HHI.PR ---
Subjective Remarks still with diarrhea but better, mild stomach pain, no fever Objective Vitals Vital Signs Date Time Temp Pulse Resp B/P Pulse Ox O2 Delivery O2 Flow Rate FiO2 08/20/16 12:00 98.1 72 18 109/60 96 08/20/16 10:50 Room Air 08/20/16 08:00 98.1 78 20 139/84 96 Manual Cuff/Doppler 08/20/16 05:14 188/98 180/80 128/78 Automatic Cuff 08/20/16 04:00 98.0 76 20 200/100 96 08/20/16 00:00 97.8 70 20 172/85 96 08/19/16 20:15 Room Air 08/19/16 20:03 86 08/19/16 20:00 99.1 88 20 179/96 96 I/O 08/19/16 08/19/16 08/19/16 08/20/16 08/20/16 08/20/16 07:00 15:00 23:00 07:00 15:00 23:00 Intake Total 720 ml 580 ml 220 ml Output Total 2450 ml 500 ml 500 ml Balance -1730 ml 80 ml -280 ml Intake Oral 720 ml 580 ml 220 ml Output Urine Total 2450 ml 500 ml 500 ml # Bowel Movements 5 2 2 Result Diagram: 08/18/16 0541 08/20/16 0836 Objective Remarks GENERAL: Not in distress. Hard of hearing. HEENT: Normocephalic. Pupils equal round and reactive. Nose without bleeding. Airway patent. NECK: Trachea midline. No JVD. Supple. CARDIOVASCULAR: Regular rate and rhythm without murmurs, gallops, or rubs. RESPIRATORY: Clear to auscultation. Breath sounds equal bilaterally. No wheezes , rales, or rhonchi. GASTROINTESTINAL: Abdomen soft, mildly tender, nondistended. Bowel Sounds normoactive x4. : Willis in place draining yellow urine clear. MUSCULOSKELETAL: Extremities without clubbing, cyanosis, or edema. NEUROLOGICAL: Awake and alert. Oriented x 3. No focal neuro deficit. HERMAN. Normal speech. A/P Assessment and Plan Patient is an 89-year-old white male with primary history of hypertension, enlarged prostate, HLD who came in under Lopez act secondary to self harm. Syncope, Orthostatic hypotension - secondary to dehydration, continue IVF, continue telemetry. Orthostatics negative. UTI-urine culture grew Pseudomonas, sensitive to Levaquin, switch Zosyn to Levaquin. ? Atrial Fibrillation possibly new onset - EKG questionable atrial fibrillation , pacemaker interrogated. Recent stool for C. difficile positive 027 neg on 08/11/2016 -not improving, switched Flagyl to vancomycin 08/19/16. improving Hypertension, uncontrolled-continue propranolol, cont Norvasc and lisinopril. Hypokalemia- replaced Consult physical therapy Urinary retention BPH, chronic -Willis catheter replaced, monitor. Major depressive disorder Effexor 75mg daily Consult physical therapy. DVT prophylaxis SCDs Alan Bishop MD Aug 20, 2016 18:25
[2016-08-21] VITALS (9 sets, daily range): BP systolic 106–166; BP diastolic 56–82; PULSE 66–86; RESP 18–20; TEMP 97.5–98.8; O2SAT 95–97
[2016-08-21] MEDS: ACETAMINOPHEN 325 MG TAB PO PRN ×3 (05:05→20:37)
[2016-08-21] MEDS: LISINOPRIL 5 MG TAB PO SCH (08:46)
[2016-08-21] MEDS: TAMSULOSIN HCL 0.4 MG CAP PO SCH (08:46)
[2016-08-21] MEDS: PANTOPRAZOLE SOD 20 MG DELAYED RELEASE TAB PO SCH (08:46)
[2016-08-21] MEDS: VANCOMYCIN 500 MG VIAL (FOR ORAL USE ONLY) PO SCH ×4 (08:46→20:39)
[2016-08-21] MEDS: VENLAFAXINE HCL XR 75 MG CAP PO SCH (08:46)
[2016-08-21] MEDS: PRIMIDONE 50 MG TAB PO SCH ×2 (08:46→20:37)
[2016-08-21] MEDS: amLODIPine BESYLATE 5 MG TAB PO SCH (08:46)
[2016-08-21] MEDS: PROPRANOLOL HCL 20 MG TAB PO SCH ×2 (08:46→20:36)
[2016-08-21] MEDS: SODIUM CHLOR 0.9% 1000 ML INJ 1,000 ML IV SCH ×2 (08:47→20:39)
[2016-08-21] MEDS ORDERED: POTASSIUM CHLORIDE 10 MEQ CAP PO ONE (09:15)
--- NOTE | 2016-08-21 09:45 | HHI.PR ---
Subjective Remarks Follow-up for C. difficile diarrhea and dizziness and lightheadedness Dizziness/lightheadedness improving, diarrhea slowing down, still soft and loose but less frequent, no abdominal pain, afebrile. No shortness of breath. Objective Vitals Vital Signs Date Time Temp Pulse Resp B/P Pulse Ox O2 Delivery O2 Flow Rate FiO2 08/21/16 08:00 98.0 69 20 119/65 97 08/21/16 04:00 98.0 73 18 148/81 95 08/21/16 00:00 98.2 66 18 153/82 96 08/20/16 20:07 69 08/20/16 20:00 Room Air 08/20/16 20:00 97.9 81 16 155/91 97 08/20/16 16:00 98.6 70 18 126/63 97 08/20/16 12:00 98.1 72 18 109/60 96 08/20/16 10:50 Room Air I/O 08/20/16 08/20/16 08/20/16 08/21/16 08/21/16 08/21/16 07:00 15:00 23:00 07:00 15:00 23:00 Intake Total 220 ml 600 ml 240 ml Output Total 500 ml 1575 ml 1250 ml Balance -280 ml -975 ml -1010 ml Intake Oral 220 ml 600 ml 240 ml Output Urine Total 500 ml 1575 ml 1250 ml # Bowel Movements 2 3 1 Result Diagram: 08/18/16 0541 08/20/16 0836 Objective Remarks GENERAL: Not in distress. Hard of hearing. HEENT: Normocephalic. Pupils equal round and reactive. NECK: Trachea midline. No JVD. Supple. CARDIOVASCULAR: Regular rate and rhythm without murmurs, gallops, or rubs. RESPIRATORY: Clear to auscultation. Breath sounds equal bilaterally. No wheezes , rales, or rhonchi. GASTROINTESTINAL: Abdomen soft, mildly tender, nondistended. Bowel Sounds normoactive x4. : Willis in place draining yellow urine clear. MUSCULOSKELETAL: Extremities without clubbing, cyanosis, or edema. NEUROLOGICAL: Awake and alert. Oriented x 3. No focal neuro deficit. HERMAN. Normal speech. A/P Assessment and Plan Patient is an 89-year-old white male with primary history of hypertension, enlarged prostate, HLD admitted for syncope. Syncope, Orthostatic hypotension - secondary to dehydration, continue IVF, continue telemetry. Orthostatics negative. Recheck orthostatics. UTI-urine culture grew Pseudomonas, sensitive to Levaquin, switch Zosyn to Levaquin. Patient needs to be on an extended course of Flagyl specially the patient is getting Levaquin. ? Atrial Fibrillation possibly new onset - EKG questionable atrial fibrillation , follow-up pacemaker interrogation. Continue propranolol. Recent stool for C. difficile positive 027 neg on 08/11/2016 -not improving, switched Flagyl to vancomycin 08/19/16. Diarrhea finally improving, start Questran and Lactinex. Hypertension, uncontrolled-continue propranolol, cont Norvasc and lisinopril. If orthostatics positive, will stop Norvasc and allow permissive hypertension to give room for orthostatic hypotension. Hypokalemia- replace, check magnesium Urinary retention, BPH, chronic -Willis catheter replaced, monitor. High risk for UTIs, continue Flomax. Major depressive disorder-Effexor 75mg daily DVT prophylaxis SCDs, Lovenox. Consult case management, might need rehabilitation,Physical therapy following Alan Bishop MD Aug 21, 2016 09:45
[2016-08-21] MEDS: CHOLESTYRAMINE 4 GM PACKET PO SCH ×2 (12:12→20:38)
[2016-08-21] MEDS: ENOXAPARIN SODIUM 30 MG/0.3 ML SYRINGE SQ SCH (12:13)
[2016-08-21] MEDS: LEVOFLOXACIN 750 MG PREMIX INJ 150 ML IV SCH (12:13)
[2016-08-21] MEDS: LACTOBACILLUS ACIDOPHILUS TAB PO SCH ×2 (12:14→17:03)
--- NOTE | 2016-08-21 18:40 | PQ ---
Physician Query Response Document PATIENT: ANA LAURA ALEX : 1925 ADMIT DATE: 08/17/2016 5:04 PM DISCH DATE: RESPONDING PROVIDER #: mya QUERY TEXT: Cause and Effect Relationship Please clarify in documentation the relationship, if any, between __FOLEY and___UTI____ Such as: -- Conditions are due to or associated -- Unrelated to each other -- Other, please specify The patient's Clinical Indicators include: Arrived to ED with pantoja which was changed prior to transferring to floor NEGATIVE YAMIL ID AND AMARJIT TO FOLLOW 08/18/16-2 Query created by: Eloisa Rodríguez on 08/18/2016 12:39 PM RESPONSE TEXT: UTI secondary to chronic indwelling pantoja catheter Electronically signed by: Alan Bishop MD 08/21/2016 6:36 PM
[2016-08-22] VITALS (9 sets, daily range): BP systolic 110–133; BP diastolic 59–75; PULSE 64–83; RESP 18–20; TEMP 97.1–98.1; O2SAT 95–97
[2016-08-22] MEDS: CHOLESTYRAMINE 4 GM PACKET PO SCH ×3 (05:25→23:15)
[2016-08-22] MEDS: ACETAMINOPHEN 325 MG TAB PO PRN ×3 (05:26→23:14)
[2016-08-22] MEDS: SODIUM CHLOR 0.9% 1000 ML INJ 1,000 ML IV SCH (05:27)
[2016-08-22 08:27] LABS: BICARBONATE 22.7 MEQ/L (21.0-32.0); POTASSIUM 3.7 MEQ/L (3.5-5.1)
[2016-08-22] MEDS: TAMSULOSIN HCL 0.4 MG CAP PO SCH (09:09)
[2016-08-22] MEDS: PANTOPRAZOLE SOD 20 MG DELAYED RELEASE TAB PO SCH (09:09)
[2016-08-22] MEDS: PRIMIDONE 50 MG TAB PO SCH ×2 (09:09→20:36)
[2016-08-22] MEDS: PROPRANOLOL HCL 20 MG TAB PO SCH ×2 (09:09→20:37)
[2016-08-22] MEDS: LISINOPRIL 5 MG TAB PO SCH (09:09)
[2016-08-22] MEDS: VANCOMYCIN 500 MG VIAL (FOR ORAL USE ONLY) PO SCH ×4 (09:09→20:37)
[2016-08-22] MEDS: VENLAFAXINE HCL XR 75 MG CAP PO SCH (09:09)
[2016-08-22] MEDS: ENOXAPARIN SODIUM 30 MG/0.3 ML SYRINGE SQ SCH (09:09)
[2016-08-22] MEDS: amLODIPine BESYLATE 5 MG TAB PO SCH (09:09)
[2016-08-22] MEDS: LACTOBACILLUS ACIDOPHILUS TAB PO SCH ×3 (09:09→16:55)
--- NOTE | 2016-08-22 10:18 | HHI.PR ---
Subjective Remarks Follow-up hyponatremia, C. difficile, UTI. The patient is still having diarrhea. Denies chest pain, dyspnea, nausea, vomiting. Objective Vitals Vital Signs Date Time Temp Pulse Resp B/P Pulse Ox O2 Delivery O2 Flow Rate FiO2 08/22/16 08:00 97.2 72 20 131/75 97 08/22/16 04:00 98.1 83 18 110/67 95 08/22/16 01:39 67 08/22/16 00:00 97.5 72 18 133/72 96 08/21/16 20:05 67 08/21/16 20:00 96 Room Air 08/21/16 20:00 97.6 86 20 140/73 96 08/21/16 18:45 83 128/65 08/21/16 18:45 98.8 73 20 166/79 95 08/21/16 18:45 79 135/72 08/21/16 16:00 98.5 66 18 106/64 97 08/21/16 12:00 97.5 68 20 115/56 97 08/21/16 11:31 69 I/O 08/21/16 08/21/16 08/21/16 08/22/16 08/22/16 08/22/16 07:00 15:00 23:00 07:00 15:00 23:00 Intake Total 240 ml 849 ml 640 ml 1280 ml Output Total 1250 ml 1750 ml 400 ml 1350 ml Balance -1010 ml -901 ml 240 ml -70 ml Intake Oral 240 ml 720 ml 240 ml 480 ml IV Total 129 ml 400 ml 800 ml Output Urine Total 1250 ml 1750 ml 400 ml 1350 ml # Bowel Movements 1 3 1 0 Result Diagram: 08/18/16 0541 08/22/16 0707 Imaging Last Impressions Head CT 08/17/161512 Signed Impressions: Service Date/Time: Wednesday, August 17, 2016 16:05 - CONCLUSION: 1. No acute intracranial abnormalities. Nahun Shen MD Chest X-Ray 08/17/161512 Signed Impressions: Service Date/Time: Wednesday, August 17, 2016 15:36 - CONCLUSION: 1. Minimal basilar scarring and atelectasis. No effusion or pneumothorax. Pacer leads overlie right atrium and right ventricle. Nahun Shen MD Cervical Spine CT 08/17/161512 Signed Impressions: Service Date/Time: Wednesday, August 17, 2016 16:07 - CONCLUSION: 1. 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 No acute bony abnormalities. Nahun Shen MD Objective Remarks General: Elderly male in no acute distress. Heart: Regular rate and rhythm. No murmur. Lungs: Clear to auscultation bilaterally. No wheezes, rales, or rhonchi. Breathing is nonlabored. Abdomen: Soft, nontender, nondistended. Extremities: No lower extremity edema. Psych: Alert and oriented. Urinary Catheter: Yes Assessment to: Continue Willis insert reason: Obstruction/Retention Vascular Central Line Catheter: No A/P Problem List: (1) UTI (urinary tract infection) ICD Code: N39.0 Status: Acute (2) Syncopal episodes ICD Code: R55 Status: Acute (3) Hypertension ICD Code: I10 Status: Chronic (4) Gastroesophageal reflux ICD Code: K21.9 Status: Chronic (5) Hyperlipidemia ICD Code: E78.5 Status: Chronic (6) C. difficile diarrhea ICD Code: A04.7 Status: Acute Assessment and Plan 1. Syncope, orthostatic hypotension: Secondary to dehydration. Continue IV fluids, telemetry monitoring. 2. UTI: Secondary to chronic indwelling Willis, present on admission. Urine culture positive for Pseudomonas. Continue Levaquin. 3. Questionable atrial fibrillation: Continue propranolol. 4. C. difficile diarrhea: Continue oral vancomycin. Continue Questran, Lactinex. 5. Hypertension: Poorly controlled. Continue propranolol, Norvasc, lisinopril. Will be cautious with antihypertensive medications secondary to orthostatic hypotension. 6. Hypokalemia: 7. Hyponatremia: IV fluids. Monitor labs. 8. Urinary retention, BPH: Patient has chronic indwelling Willis, which was changed upon presentation to the ER. High risk for UTIs. Continue Flomax. 9. Major depressive disorder: Continue Effexor. 10. DVT prophylaxis: SCDs, Lovenox. Discharge Planning Will likely need SNF/rehab placement. Case management assisting with discharge planning. Problem Qualifiers (1) UTI (urinary tract infection): Qualified Code: T83.511A - Urinary tract infection associated with indwelling urethral catheter, initial encounter (2) Syncopal episodes: Qualified Code: R55 - Syncope, unspecified syncope type Hernesto Roberts MD Aug 22, 2016 10:18
[2016-08-22] MEDS: NS + KCL 20 MEQ INJ 1,000 ML IV SCH (11:59)
[2016-08-22] MEDS: LEVOFLOXACIN 750 MG PREMIX INJ 150 ML IV SCH (12:01)
[2016-08-23] VITALS (8 sets, daily range): BP systolic 106–176; BP diastolic 62–88; PULSE 59–74; RESP 12–20; TEMP 97.4–98.8; O2SAT 95–98
[2016-08-23] MEDS: NS + KCL 20 MEQ INJ 1,000 ML IV SCH ×2 (02:28→15:37)
[2016-08-23] MEDS: CHOLESTYRAMINE 4 GM PACKET PO SCH ×3 (06:07→21:53)
[2016-08-23] MEDS: ACETAMINOPHEN 325 MG TAB PO PRN ×2 (06:09→21:54)
[2016-08-23 07:39] LABS: AUTOMATED NEUTROPHIL # 5.6 TH/MM3 (1.8-7.7); BASOPHIL # 0.1 TH/MM3 (0-0.2); BASOPHIL % 0.7 % (0.0-2.0); EOSINOPHIL # 0.3 TH/MM3 (0-0.4); EOSINOPHIL % 3.5 % (0.0-4.0); HEMATOCRIT 36.8 % (39.0-51.0); HEMO FLAGS DIFF FINAL; LYMPH % 12.7 % (9.0-44.0); MEAN CELL VOLUME 89.2 FL (80.0-100.0); MEAN CORPUSCULAR HEMOGLOBIN 31.4 PG (27.0-34.0); MEAN CORPUSCULAR HGB CONC 35.2 % (32.0-36.0); MONO % 10.9 % (0.0-8.0); NEUT % 72.2 % (16.0-70.0); PLATELET COUNT 209 TH/MM3 (150-450); RED BLOOD COUNT 4.12 MIL/MM3 (4.50-5.90); RED CELL DISTRIBUTION WIDTH 14.9 % (11.6-17.2); WHITE BLOOD COUNT 7.8 TH/MM3 (4.0-11.0)
[2016-08-23 08:01] LABS: BICARBONATE 23.1 MEQ/L (21.0-32.0)
[2016-08-23] MEDS: LACTOBACILLUS ACIDOPHILUS TAB PO SCH ×3 (08:46→17:30)
[2016-08-23] MEDS: VENLAFAXINE HCL XR 75 MG CAP PO SCH (08:46)
[2016-08-23] MEDS: amLODIPine BESYLATE 5 MG TAB PO SCH (08:46)
[2016-08-23] MEDS: PRIMIDONE 50 MG TAB PO SCH ×2 (08:46→21:54)
[2016-08-23] MEDS: TAMSULOSIN HCL 0.4 MG CAP PO SCH (08:46)
[2016-08-23] MEDS: PROPRANOLOL HCL 20 MG TAB PO SCH ×2 (08:46→21:54)
[2016-08-23] MEDS: PANTOPRAZOLE SOD 20 MG DELAYED RELEASE TAB PO SCH (08:47)
[2016-08-23] MEDS: LISINOPRIL 5 MG TAB PO SCH (08:47)
[2016-08-23] MEDS: VANCOMYCIN 500 MG VIAL (FOR ORAL USE ONLY) PO SCH ×4 (08:47→21:53)
[2016-08-23] MEDS: ENOXAPARIN SODIUM 30 MG/0.3 ML SYRINGE SQ SCH (08:50)
--- NOTE | 2016-08-23 13:42 | HHI.PR ---
Subjective Remarks Follow-up C. difficile diarrhea, UTI, hyponatremia. The patient states that he feels much better today. He feels that his diarrhea is improving. Only one loose stool this morning. Denies abdominal pain, nausea, vomiting. Objective Vitals Vital Signs Date Time Temp Pulse Resp B/P Pulse Ox O2 Delivery O2 Flow Rate FiO2 08/23/16 12:00 98.8 60 20 143/67 96 08/23/16 08:00 97.9 59 12 176/88 97 08/23/16 07:30 18 08/23/16 04:00 97.7 66 18 133/74 98 08/23/16 00:00 97.4 74 18 118/70 97 08/22/16 20:30 Room Air 08/22/16 20:18 65 08/22/16 20:00 97.4 74 18 118/70 97 08/22/16 16:00 97.1 74 20 121/64 96 I/O 08/22/16 08/22/16 08/22/16 08/23/16 08/23/16 08/23/16 07:00 15:00 23:00 07:00 15:00 23:00 Intake Total 1280 ml 720 ml 360 ml 120 ml Output Total 1350 ml 1150 ml 350 ml 1000 ml Balance -70 ml -430 ml 10 ml -880 ml Intake Oral 480 ml 720 ml 360 ml 120 ml IV Total 800 ml Output Urine Total 1350 ml 1150 ml 350 ml 1000 ml # Bowel Movements 0 1 0 1 Result Diagram: 08/23/16 0645 08/23/16 0645 Imaging Last Impressions Head CT 08/17/161512 Signed Impressions: Service Date/Time: Wednesday, August 17, 2016 16:05 - CONCLUSION: 1. No acute intracranial abnormalities. Nahun Shen MD Chest X-Ray 08/17/161512 Signed Impressions: Service Date/Time: Wednesday, August 17, 2016 15:36 - CONCLUSION: 1. Minimal basilar scarring and atelectasis. No effusion or pneumothorax. Pacer leads overlie right atrium and right ventricle. Nauhn Shen MD Cervical Spine CT 08/17/161512 Signed Impressions: Service Date/Time: Wednesday, August 17, 2016 16:07 - CONCLUSION: 1. 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 No acute bony abnormalities. Nahun Shen MD Objective Remarks General: Elderly male in no acute distress. Heart: Regular rate and rhythm. No murmur. Lungs: Clear to auscultation bilaterally. No wheezes, rales, or rhonchi. Breathing is nonlabored. Abdomen: Soft, nontender, nondistended. Extremities: No lower extremity edema. Psych: Alert and oriented. Procedures None Urinary Catheter: Yes Assessment to: Continue Willis insert reason: Obstruction/Retention Vascular Central Line Catheter: No A/P Problem List: (1) UTI (urinary tract infection) ICD Code: N39.0 Status: Acute (2) Syncopal episodes ICD Code: R55 Status: Acute (3) Hypertension ICD Code: I10 Status: Chronic (4) Gastroesophageal reflux ICD Code: K21.9 Status: Chronic (5) Hyperlipidemia ICD Code: E78.5 Status: Chronic (6) C. difficile diarrhea ICD Code: A04.7 Status: Acute Assessment and Plan 1. Syncope, orthostatic hypotension: Secondary to dehydration. Continue IV fluids, telemetry monitoring. 2. UTI: Secondary to chronic indwelling Willis, present on admission. Urine culture positive for Pseudomonas. Continue Levaquin. 3. Questionable atrial fibrillation: Continue propranolol. 4. C. difficile diarrhea: Continue oral vancomycin. Continue Questran, Lactinex. Improving. 5. Hypertension: Continue propranolol, Norvasc, lisinopril. Will be cautious with antihypertensive medications secondary to orthostatic hypotension. 6. Hypokalemia: Improved. 7. Hyponatremia: Improving. 8. Urinary retention, BPH: Patient has chronic indwelling Willis, which was changed upon presentation to the ER. High risk for UTIs. Continue Flomax. Consider urology consult. 9. Major depressive disorder: Continue Effexor. 10. DVT prophylaxis: SCDs, Lovenox. Discharge Planning Will likely need SNF/rehab placement. Case management assisting with discharge planning. Problem Qualifiers (1) UTI (urinary tract infection): Qualified Code: T83.511A - Urinary tract infection associated with indwelling urethral catheter, initial encounter (2) Syncopal episodes: Qualified Code: R55 - Syncope, unspecified syncope type Hernesto Roberts MD Aug 23, 2016 13:42
[2016-08-24] VITALS (7 sets, daily range): BP systolic 102–161; BP diastolic 55–78; PULSE 60–77; RESP 12–20; TEMP 96.5–98.6; O2SAT 95–98
[2016-08-24] MEDS: ACETAMINOPHEN 325 MG TAB PO PRN ×2 (06:08→17:15)
[2016-08-24] MEDS: CHOLESTYRAMINE 4 GM PACKET PO SCH ×3 (06:08→21:01)
[2016-08-24] MEDS: NS + KCL 20 MEQ INJ 1,000 ML IV SCH ×2 (06:08→21:00)
[2016-08-24] MEDS: VENLAFAXINE HCL XR 75 MG CAP PO SCH (09:14)
[2016-08-24] MEDS: LACTOBACILLUS ACIDOPHILUS TAB PO SCH ×3 (09:14→17:15)
[2016-08-24] MEDS: PROPRANOLOL HCL 20 MG TAB PO SCH ×2 (09:14→21:01)
[2016-08-24] MEDS: TAMSULOSIN HCL 0.4 MG CAP PO SCH (09:14)
[2016-08-24] MEDS: ENOXAPARIN SODIUM 30 MG/0.3 ML SYRINGE SQ SCH (09:15)
[2016-08-24] MEDS: amLODIPine BESYLATE 5 MG TAB PO SCH (09:15)
[2016-08-24] MEDS: PANTOPRAZOLE SOD 20 MG DELAYED RELEASE TAB PO SCH (09:15)
[2016-08-24] MEDS: VANCOMYCIN 500 MG VIAL (FOR ORAL USE ONLY) PO SCH ×4 (09:15→21:01)
[2016-08-24] MEDS: LISINOPRIL 5 MG TAB PO SCH (09:15)
[2016-08-24] MEDS: PRIMIDONE 50 MG TAB PO SCH ×2 (09:15→21:01)
--- NOTE | 2016-08-24 09:58 | HHI.PR ---
Subjective Remarks Follow-up C. difficile diarrhea, UTI, hyponatremia. The patient states that he feels much better today. Denies chest pain, dyspnea, diarrhea, nausea, vomiting. Objective Vitals Vital Signs Date Time Temp Pulse Resp B/P Pulse Ox O2 Delivery O2 Flow Rate FiO2 08/24/16 09:34 98 Room Air 08/24/16 09:13 20 08/24/16 08:00 97.9 62 16 152/69 98 08/24/16 04:00 97.3 73 20 126/72 95 08/24/16 00:00 98.0 67 20 118/64 97 08/23/16 20:45 Room Air 08/23/16 20:00 98.2 74 20 106/62 95 08/23/16 19:58 68 08/23/16 16:00 98.2 70 20 171/80 97 08/23/16 15:39 60 08/23/16 12:00 98.8 60 20 143/67 96 I/O 08/23/16 08/23/16 08/23/16 08/24/16 08/24/16 08/24/16 07:00 15:00 23:00 07:00 15:00 23:00 Intake Total 120 ml 340 ml 120 ml Output Total 1000 ml 700 ml 800 ml Balance -880 ml -360 ml -680 ml Intake Oral 120 ml 340 ml 120 ml Output Urine Total 1000 ml 700 ml 800 ml # Bowel Movements 1 1 0 Result Diagram: 08/23/16 0645 08/23/16 0645 Imaging Last Impressions Head CT 08/17/161512 Signed Impressions: Service Date/Time: Wednesday, August 17, 2016 16:05 - CONCLUSION: 1. No acute intracranial abnormalities. Nahun Shen MD Chest X-Ray 08/17/161512 Signed Impressions: Service Date/Time: Wednesday, August 17, 2016 15:36 - CONCLUSION: 1. Minimal basilar scarring and atelectasis. No effusion or pneumothorax. Pacer leads overlie right atrium and right ventricle. Nahun Shen MD Cervical Spine CT 08/17/161512 Signed Impressions: Service Date/Time: Wednesday, August 17, 2016 16:07 - CONCLUSION: 1. 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 No acute bony abnormalities. Nahun Shen MD Objective Remarks General: Elderly male in no acute distress. Heart: Regular rate and rhythm. No murmur. Lungs: Clear to auscultation bilaterally. No wheezes, rales, or rhonchi. Breathing is nonlabored. Abdomen: Soft, nontender, nondistended. Extremities: No lower extremity edema. Psych: Alert and oriented. Procedures None Urinary Catheter: Yes Assessment to: Continue Willis insert reason: Obstruction/Retention Vascular Central Line Catheter: No A/P Problem List: (1) UTI (urinary tract infection) ICD Code: N39.0 Status: Acute (2) Syncopal episodes ICD Code: R55 Status: Acute (3) Hypertension ICD Code: I10 Status: Chronic (4) Gastroesophageal reflux ICD Code: K21.9 Status: Chronic (5) Hyperlipidemia ICD Code: E78.5 Status: Chronic (6) C. difficile diarrhea ICD Code: A04.7 Status: Acute Assessment and Plan 1. Syncope, orthostatic hypotension: Secondary to dehydration. Continue IV fluids, telemetry monitoring. 2. UTI: Secondary to chronic indwelling Willis, present on admission. Urine culture positive for Pseudomonas. Continue Levaquin. 3. Questionable atrial fibrillation: Continue propranolol. 4. C. difficile diarrhea: Continue oral vancomycin. Continue Questran, Lactinex. Improving. 5. Hypertension: Continue propranolol, Norvasc, lisinopril. Will be cautious with antihypertensive medications secondary to orthostatic hypotension. 6. Hypokalemia: Improved. 7. Hyponatremia: Improving. Repeat labs are pending this morning. 8. Urinary retention, BPH: Patient has chronic indwelling Willis, which was changed upon presentation to the ER. High risk for UTIs. Continue Flomax. Consider urology consult (patient is scheduled to see Dr. Velazco as an outpatient for follow up this week). 9. Major depressive disorder: Continue Effexor. 10. DVT prophylaxis: SCDs, Lovenox. Discharge Planning Plan for discharge to senior care facility when arrangements are made. Problem Qualifiers (1) UTI (urinary tract infection): Qualified Code: T83.511A - Urinary tract infection associated with indwelling urethral catheter, initial encounter (2) Syncopal episodes: Qualified Code: R55 - Syncope, unspecified syncope type Hernesto Roberts MD Aug 24, 2016 09:58
[2016-08-24] MEDS ORDERED: VANC500I3 PO (10:16)
[2016-08-24] MEDS ORDERED: LISI-519 PO (10:16)
[2016-08-24] MEDS ORDERED: LACT PO (10:16)
[2016-08-24] MEDS ORDERED: AMLO5 PO (10:16)
--- NOTE | 2016-08-24 10:17 | HHI.DCPOC ---
Discharge Care Plan Diagnosis: (1) C. difficile diarrhea (2) Hypertension (3) UTI (urinary tract infection) (4) Hyperlipidemia (5) Gastroesophageal reflux (6) Major depressive disorder, single episode (7) Essential tremor Goals to Promote Your Health * To prevent worsening of your condition and complications * To maintain your health at the optimal level Directions to Meet Your Goals Take your medications as prescribed Follow your dietary instruction Follow activity as directed Keep your appointments as scheduled Take your immunizations and boosters as scheduled If your symptoms worsen call your PCP, if no PCP go to Urgent Care Center or Emergency Room Smoking is Dangerous to Your Health. Avoid second hand smoke Call the 24-hour hour crisis hotline for domestic abuse at Hernesto Roberts MD Aug 24, 2016 10:17
[2016-08-24] MEDS ORDERED: LEVOFLOXACIN 750 MG PREMIX INJ 150 ML IV SCH (12:00)
[2016-08-25] VITALS: BP 122/62; PULSE 74; RESP 20; TEMP 98; O2SAT 96
[2016-08-25] MEDS: ACETAMINOPHEN 325 MG TAB PO PRN ×3 (00:02→12:26)
[2016-08-25 04:00] VITALS: BP 123/73; PULSE 86; RESP 20; TEMP 97.4; O2SAT 97
[2016-08-25] MEDS: CHOLESTYRAMINE 4 GM PACKET PO SCH ×2 (05:49→15:16)
[2016-08-25 08:00] VITALS: BP 113/67; PULSE 60; RESP 16; TEMP 97.2; O2SAT 97
[2016-08-25] MEDS: PRIMIDONE 50 MG TAB PO SCH (09:29)
[2016-08-25] MEDS: VENLAFAXINE HCL XR 75 MG CAP PO SCH (09:29)
[2016-08-25] MEDS: TAMSULOSIN HCL 0.4 MG CAP PO SCH (09:29)
[2016-08-25] MEDS: amLODIPine BESYLATE 5 MG TAB PO SCH (09:29)
[2016-08-25] MEDS: PROPRANOLOL HCL 20 MG TAB PO SCH (09:29)
[2016-08-25] MEDS: LISINOPRIL 5 MG TAB PO SCH (09:30)
[2016-08-25] MEDS: ENOXAPARIN SODIUM 30 MG/0.3 ML SYRINGE SQ SCH (09:30)
[2016-08-25] MEDS: PANTOPRAZOLE SOD 20 MG DELAYED RELEASE TAB PO SCH (09:30)
[2016-08-25] MEDS: VANCOMYCIN 500 MG VIAL (FOR ORAL USE ONLY) PO SCH ×2 (09:30→12:25)
[2016-08-25] MEDS: LACTOBACILLUS ACIDOPHILUS TAB PO SCH ×2 (09:30→12:25)
[2016-08-25] MEDS: NS + KCL 20 MEQ INJ 1,000 ML IV SCH (09:35)
[2016-08-25 09:42] VITALS: PULSE 60
--- NOTE | 2016-08-25 10:18 | HHI.PR ---
Subjective Remarks Follow-up C. difficile diarrhea, UTI, hyponatremia. Denies lightheadedness. Has no complaints at this time. Feels that he is ready to go to rehab. Objective Vitals Vital Signs Date Time Temp Pulse Resp B/P Pulse Ox O2 Delivery O2 Flow Rate FiO2 08/25/16 08:00 97.2 60 16 113/67 97 08/25/16 04:00 97.4 86 20 123/73 97 08/25/16 00:00 98.0 74 20 122/62 96 08/24/16 20:32 61 08/24/16 20:00 Room Air 08/24/16 20:00 98.6 77 20 145/76 97 08/24/16 16:00 96.5 60 16 161/78 96 08/24/16 12:00 97.1 60 12 102/55 97 I/O 08/24/16 08/24/16 08/24/16 08/25/16 08/25/16 08/25/16 07:00 15:00 23:00 07:00 15:00 23:00 Intake Total 120 ml 1140 ml 300 ml 220 ml Output Total 800 ml 2000 ml 550 ml 1600 ml Balance -680 ml -860 ml -250 ml -1380 ml Intake Oral 120 ml 1140 ml 220 ml 220 ml IV Total 80 ml Output Urine Total 800 ml 2000 ml 550 ml 1600 ml # Bowel Movements 0 3 1 1 Result Diagram: 08/23/16 0645 08/24/16 0915 Imaging Last Impressions Head CT 08/17/161512 Signed Impressions: Service Date/Time: Wednesday, August 17, 2016 16:05 - CONCLUSION: 1. No acute intracranial abnormalities. Nahun Shen MD Chest X-Ray 08/17/161512 Signed Impressions: Service Date/Time: Wednesday, August 17, 2016 15:36 - CONCLUSION: 1. Minimal basilar scarring and atelectasis. No effusion or pneumothorax. Pacer leads overlie right atrium and right ventricle. Nahun Shen MD Cervical Spine CT 08/17/161512 Signed Impressions: Service Date/Time: Wednesday, August 17, 2016 16:07 - CONCLUSION: 1. 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 No acute bony abnormalities. Nahun Shen MD Objective Remarks General: Elderly male in no acute distress. Heart: Regular rate and rhythm. No murmur. Lungs: Clear to auscultation bilaterally. No wheezes, rales, or rhonchi. Breathing is nonlabored. Abdomen: Soft, nontender, nondistended. Extremities: No lower extremity edema. Psych: Alert and oriented. Procedures None Urinary Catheter: No Vascular Central Line Catheter: No A/P Problem List: (1) UTI (urinary tract infection) ICD Code: N39.0 Status: Acute (2) Syncopal episodes ICD Code: R55 Status: Acute (3) Hypertension ICD Code: I10 Status: Chronic (4) Gastroesophageal reflux ICD Code: K21.9 Status: Chronic (5) Hyperlipidemia ICD Code: E78.5 Status: Chronic (6) C. difficile diarrhea ICD Code: A04.7 Status: Acute Assessment and Plan 1. Syncope, orthostatic hypotension: Likely secondary to dehydration, which has improved. 2. UTI: Secondary to chronic indwelling Willis, present on admission. Urine culture positive for Pseudomonas. Continue Levaquin. 3. Questionable atrial fibrillation: Continue propranolol. 4. C. difficile diarrhea: Continue oral vancomycin. Continue Questran, Lactinex. Improving. 5. Hypertension: Continue Norvasc, lisinopril. Decrease propranolol. Will be cautious with antihypertensive medications secondary to orthostatic hypotension. Patient denies lightheadedness. 6. Hypokalemia: Improved. 7. Hyponatremia: Improving. Repeat labs are pending this morning. 8. Urinary retention, BPH: Patient has chronic indwelling Willis, which was changed upon presentation to the ER. High risk for UTIs. Discontinue Flomax due to ongoing orthostatic hypotension. Consider urology consult (patient is scheduled to see Dr. Velazco as an outpatient for follow up this week). 9. Major depressive disorder: Continue Effexor. 10. DVT prophylaxis: SCDs, Lovenox. Discharge Planning Plan for discharge to care home facility when arrangements are made. Awaiting authorization. Problem Qualifiers (1) UTI (urinary tract infection): Qualified Code: T83.511A - Urinary tract infection associated with indwelling urethral catheter, initial encounter (2) Syncopal episodes: Qualified Code: R55 - Syncope, unspecified syncope type Hernesto Roberts MD Aug 25, 2016 10:18
[2016-08-25] MEDS ORDERED: PROP10TA6 PO (11:15)
[2016-08-25 12:00] VITALS: BP 107/69; PULSE 60; RESP 12; TEMP 97.7; O2SAT 98
[2016-08-25 16:00] VITALS: BP 104/58; PULSE 63; RESP 12; TEMP 98; O2SAT 95
[2016-08-26] MEDS ORDERED: LEVA250T PO (03:21)
--- NOTE | 2016-08-27 15:26 | HHI.DS ---
Discharge Summary Admission Date Aug 17, 2016 at 17:04 Discharge Date: Aug 25, 2016 Admitting Diagnosis UTI/sepsis/syncope (1) UTI (urinary tract infection) ICD Code: N39.0 (2) Syncopal episodes ICD Code: R55 (3) Hypertension ICD Code: I10 (4) Gastroesophageal reflux ICD Code: K21.9 (5) Hyperlipidemia ICD Code: E78.5 (6) C. difficile diarrhea ICD Code: A04.7 Procedures None Brief History - From Admission This is 89 y/o male with a history of HTN, enlarged prostate, and hyperlipidemia. Patient is a poor historian therefore information gathered from patient patient's and prior computerized charting. He was recently discharged from [facility] on 08/13/2016 with C. difficile colitis and pantoja catheter in place for urinary retention. It is unclear whether the patient continue his by mouth Flagyl at home. Patient continues to have 2-3 loose bowel movements per day. Patient reports tenderness he and his had breakfast this morning when he arrived home from breakfast he had stomach pains and he vomited several times. Patient then got up from his chair was walking and fell and hitting the left side of his head. Patient does report he lost consciousness for a few minutes. Patient's was in the next room and came in to assist him and called 911. Upon arrival to the emergency department patient was found to have atrial fibrillation on telemetry EKG pending. Patient does not recall any history of atrial fibrillation. Patient at this time reports feeling well denies chest pain shortness of breath nausea or abdominal pain. CBC/BMP: 08/23/16 0645 08/24/16 0915 Imaging Last Impressions Head CT 08/17/161512 Signed Impressions: Service Date/Time: Wednesday, August 17, 2016 16:05 - CONCLUSION: 1. No acute intracranial abnormalities. Nahun Shen MD Chest X-Ray 08/17/16 1513 Signed Impressions: Service Date/Time: Wednesday, August 17, 2016 15:36 - CONCLUSION: 1. Minimal basilar scarring and atelectasis. No effusion or pneumothorax. Pacer leads overlie right atrium and right ventricle. Nahun Shen MD Cervical Spine CT 08/17/16 1513 Signed Impressions: Service Date/Time: Wednesday, August 17, 2016 16:07 - CONCLUSION: 1. 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 No acute bony abnormalities. Nahun Shen MD PE at Discharge General: Elderly male in no acute distress. Heart: Regular rate and rhythm. No murmur. Lungs: Clear to auscultation bilaterally. No wheezes, rales, or rhonchi. Breathing is nonlabored. Abdomen: Soft, nontender, nondistended. Extremities: No lower extremity edema. Psych: Alert and oriented. Hospital Course The patient was admitted for further workup of syncope and orthostatic hypotension. This is felt to be likely secondary to dehydration. He was started on IV fluids. He was noted to have a urinary tract infection. Pantoja catheter was exchanged. Urine culture was positive for Pseudomonas. Stool was positive for C. difficile. He was switched from Flagyl to oral vancomycin. Diarrhea improved throughout the hospitalization. As he improved clinically, arrangements were made for the patient be discharged to [facility] facility. Pt Condition on Discharge: Stable Discharge Disposition: Discharge to SNF Discharge Time: > 30 minutes Discharge Instructions DIET: Follow Instructions for: Heart Healthy Diet Activities you can perform: Regular-No Restrictions Follow up Referrals: PCP Follow-up - 2 Weeks SNF/[facility]/ with [facility] - Next Day with Jair Velazco MD Patient has appointment. New Medications: Propranolol (Propranolol) 10 Mg Tab 10 MG PO Q12HR Blood Pressure Management #60 Ref 0 TAB Amlodipine (Norvasc) 5 Mg Tab 5 MG PO DAILY Blood Pressure Management #30 Ref 0 TAB Lactobacillus Acidophilus (Acidophilus/l-Sporogenes) 1 Tab Tab 1 TAB PO TID Diarrhea #30 Ref 0 TAB Lisinopril (Lisinopril) 5 Mg Tab 5 MG PO DAILY Blood Pressure Management #30 Ref 0 TAB Vancomycin Inj (Vancomycin Inj) 500 Mg Inj 250 MG PO QID c. difficile Days 10 INJECTION Continued Medications: Omeprazole (Omeprazole) 20 Mg Tab 20 MG PO DAILY #30 Ref 0 TAB Primidone (Primidone) 50 Mg Tab 100 MG PO BID Control Seizures #120 Ref 0 TAB Venlafaxine ER 24 HR (Effexor XR 24 HR) 75 Mg Cap 75 MG PO DAILY health Days 0 CAP Discontinued Medications: Alfuzosin HCl (Alfuzosin HCl ER) 10 Mg Tab 1 CAP PO DAILY Hernesto Roberts MD Aug 27, 2016 15:26
[2016-09-09] MEDS ORDERED: TRAM50TA PO (18:06)
== END 2016-08-25 18:00 | DRG 699 ==
LOC: NEPA 15:05 → NEDA 17:04 → N04A 19:02
PROVIDERS: ADMIT Family Medicine; ATTEND Family Medicine
PROC: 0T2BX0Z Change Drainage Device in Bladder, External Approach (ICD-10-PCS; principal; 2016-08-17)
DX: T83.511A Infection and inflammatory reaction due to indwelling urethral catheter, initial encounter (principal); A04.7 Enterocolitis due to Clostridium difficile; I48.91 Unspecified atrial fibrillation; E87.1 Hypo-osmolality and hyponatremia; R55 Syncope and collapse; F32.9 Major depressive disorder, single episode, unspecified; I10 Essential (primary) hypertension; E86.0 Dehydration; B96.5 Pseudomonas (aeruginosa) (mallei) (pseudomallei) as the cause of diseases classified elsewhere; I95.1 Orthostatic hypotension; E87.6 Hypokalemia; Z91.81 History of falling; N40.1 Benign prostatic hyperplasia with lower urinary tract symptoms; R33.9 Retention of urine, unspecified; E78.5 Hyperlipidemia, unspecified; K21.9 Gastro-esophageal reflux disease without esophagitis; Z95.0 Presence of cardiac pacemaker; H91.93 Unspecified hearing loss, bilateral; Z87.891 Personal history of nicotine dependence; Z23 Encounter for immunization
CPT/HCPCS: 70450; 71010; 72125; 76937; 80048; 80053; 81001; 82550; 83605; 83735; 84484; 85025; 85610; 85730; 87040; 87077; 87086; 87186; 87493; 90471; 90732; 93005; 96365; 96375; G0009; J1650; J1956; J2405; J2543; J3480; J7030

== ENCOUNTER 2016-08-26 01:17 | Emergency (ER) | payer MEDICARE, OTHER ==
[~2016-08-26 01:17] MED LIST changes: +AMLO5 PO; -CAPT25TA2 PO; -CEPH250C PO; +LACT PO; +LISI-519 PO; -METR-1 PO; -NORV2.5T PO; +OMEP20TA PO; +PRIM50TA5 PO; +PROP10TA6 PO; -PROP40TA3 PO; +VANC500I3 PO
[2016-08-26 01:19] VITALS: BP 169/80; PULSE 61; RESP 16; TEMP 98.1; O2SAT 97
[2016-08-26 02:13] LABS: BACTERIA, URINE OCC /hpf; BLOOD, URINE LARGE (NEG); COMMENT (UR) CULTURE INDICATED; CULTURE IF INDICATED CULTURE INDICATED; GLUCOSE,URINE NEG (NEG); KETONE, URINE NEG (NEG); NITRITE,URINE NEG (NEG); URINE COLOR RED (YELLW/STRAW)
[2016-08-26] MEDS ORDERED: ACETAMINOPHEN 325 MG TAB PO ONE (02:30)
[2016-08-26] MEDS ORDERED: LEVA250T PO (03:21)
--- NOTE | 2016-08-26 03:47 | PD ---
HPI Chief Complaint: Medical Clearance Time Seen by Provider: 01:45 Travel History International Travel<30 days: No Contact w/Intl Traveler<30days: No Traveled to known affect area: No History of Present Illness HPI The patient is an 89 year old male who presents to the [facility] emergency department with a history of accidentally pulling out his Willis catheter prior to arrival. The patient was noted to have some bleeding from the urethra and was sent from his [facility] for evaluation. The patient's recent history is significant for having been admitted at the beginning of August with C. difficile colitis and is Willis catheter associated urinary tract infection that cultured out pseudomonas that was sensitive to Levaquin. The patient reports that his diarrhea has improved since being on antibiotic. The patient reports that he was trying to get up when he caught his catheter on the side of the bed. The patient denies having any other acute complaints. [facility] Past Medical History Narrative Medical The patient's past medical history is significant for hypertension, benign prostatic hypertrophy, hyperlipidemia, recent diagnosis of C. difficile colitis , history of Willis catheter associated urinary tract infection, history of being hard of hearing. Hx Anticoagulant Therapy: No Arthritis: Yes (rt. knee) Anxiety: No (denies) Heart Rhythm Problems: Yes Cancer: No Cardiovascular Problems: Yes (PACEMAKER) High Cholesterol: Yes Chest Pain: No Congestive Heart Failure: No Cerebrovascular Accident: No Diminished Hearing: Yes ([place] hearing aids) Endocrine: No Gastrointestinal Disorders: Yes GERD: Yes Genitourinary: Yes (Enlarged Prostate) Hypertension: Yes Immune Disorder: No Implanted Vascular Access Dvce: Yes Kidney Stones: No Musculoskeletal: No Neurologic: Yes (ESSENTIAL TREMORS) Psychiatric: Yes (recently said he would kill himself, [facility] admission) Reproductive: No Respiratory: No Immunizations Current: Yes Migraines: No Renal Failure: No Seizures: No Tetanus Vaccination: Unknown Influenza Vaccination: No Past Surgical History Narrative Surgical The patient's past surgical history is significant for a TURP 2, pacemaker placement, cataract surgery. Abdominal Surgery: No Cardiac Surgery: Yes (PACER) Ear Surgery: No Endocrine Surgery: Yes (goiter) Eye Surgery: Yes (BILAT CATARACT) Genitourinary Surgery: Yes (TURP and 2015) Gynecologic Surgery: No Oral Surgery: No Pacemaker: Yes Thoracic Surgery: No Other Surgery: Yes ( GOITER REMOVED) Social History Alcohol Use: No Tobacco Use: No Substance Use: No Allergies-Medications (Allergen,Severity, Reaction): Coded Allergies: No Known Allergies (Unverified , 08/17/16) Reported Meds & Prescriptions Reported Meds & Active Scripts Active Levaquin (Levofloxacin) 250 Mg Tab 250 Mg PO DAILY Propranolol (Propranolol HCl) 10 Mg Tab 10 Mg PO Q12HR Vancomycin Inj (Vancomycin HCl) 500 Mg Inj 250 Mg PO QID 10 Days Lisinopril 5 Mg Tab 5 Mg PO DAILY Acidophilus/l-Sporogenes (Lactobacillus Acidophilus) 1 Tab Tab 1 Tab PO TID Norvasc (Amlodipine Besylate) 5 Mg Tab 5 Mg PO DAILY Effexor XR 24 HR (Venlafaxine HCl) 75 Mg Cap 75 Mg PO DAILY 0 Days Reported Omeprazole 20 Mg Tab 20 Mg PO DAILY Primidone 50 Mg Tab 100 Mg PO BID Review of Systems General / Constitutional: No: Fever Eyes: No: Visual changes HENT: No: Headaches Cardiovascular: No: Chest Pain or Discomfort Respiratory: No: Shortness of Breath Gastrointestinal: No: Abdominal Pain Genitourinary: Positive: Hematuria, Other (accidental dislodgment of Willis catheter), No: Dysuria Musculoskeletal: No: Pain Skin: No Rash Neurologic: No: Weakness Psychiatric: No: Depression Endocrine: No: Polydipsia Hematologic/Lymphatic: No: Easy Bruising Physical Exam Narrative General: The patient is a well-developed well-nourished male in no acute distress. Head and Neck exam: Head is normocephalic atraumatic. Eyes: Pupils are equal round and reactive to light. Nose: Midline septum with pink mucous membranes Mouth: Dentition unremarkable. Moist mucus membranes. Posterior oropharynx is not erythematous. No tonsillar hypertrophy. Uvula midline. Airway patent. Neck: No palpable lymphadenopathy. No nuchal rigidity. Cardiovascular: Regular rate and rhythm without murmurs, gallops, or rubs. Lungs: Clear to auscultation bilaterally. No wheezes, rhonchi, or rales. Abdomen: Soft, without tenderness to palpation in all 4 quadrants of the abdomen. No guarding, rebound, or rigidity. Normal bowel sounds are audible. Extremities: No clubbing, cyanosis, or edema. Neurologic Exam: Grossly nonfocal. Genital exam: The patient has noted to have a small amount of blood at the urethral meatus. The catheter was replaced into the patient's bladder due to his history of urinary retention. A urine was sent for analysis. Data Data Last Documented VS Vital Signs Date Time Temp Pulse Resp B/P Pulse Ox O2 Delivery O2 Flow Rate FiO2 08/26/16 05:42 91 16 118/65 98 Room Air 08/26/16 01:19 98.1 Orders Urinary Catheter Insert/Apply (08/26/16 01:49) Urinalysis - C+S If Indicated (08/26/16 01:49) Urine Culture (08/26/16 01:50) Acetaminophen (Tylenol) (08/26/16 02:30) Labs Laboratory Tests Test 08/26/16 01:50 Urine Color RED Urine Turbidity HAZY Urine pH 6.0 Urine Specific [place] 1.018 Urine Protein 100 mg/dL Urine Glucose (UA) NEG mg/dL Urine Ketones NEG mg/dL Urine Occult Blood LARGE Urine Nitrite NEG Urine Bilirubin NEG Urine Urobilinogen LESS THAN 2.0 MG/DL Urine Leukocyte Esterase LARGE Urine RBC /hpf Urine WBC 115 /hpf Urine Bacteria OCC /hpf Microscopic Urinalysis Comment CULTURE INDICATED MDM Medical Decision Making Medical Screen Exam Complete: Yes Emergency Medical Condition: Yes Medical Record Reviewed: Yes Differential Diagnosis Urethral trauma, versus urinary retention, versus urinary tract infection Narrative Course During the course of the patients emergency department visit, the patients history, examination, and differential diagnosis were reviewed with the patient. The patient had a new Willis catheter placed into his bladder without any difficulty. The urine began as slightly bloody and then began to clear to yellow urine. The patients laboratory studies were reviewed and remarkable for a urinalysis that shows red urine 100 protein large occult blood large leukocyte esterase innumerable rbc's wbc's 115 occasional bacteria. The patient will be [facility] to his [facility] with a prescription for Levaquin as the patient's urine culture was previously sensitive to this antibiotic. The patient is resting comfortably and feels better, is alert and in no distress. The patients results and examination findings were discussed with the patient. The repeat examination is unremarkable and benign. The history, exam, diagnostic testing, and current condition do not suggest any significant pathology to warrant further testing, continued ED treatment, admission, or surgical evaluation at this point. The vital signs have been stable. The patient does not have uncontrollable pain, intractable vomiting, or other significant symptoms. The patient's condition is stable and appropriate for discharge. The patient will pursue further outpatient evaluation with a primary care physician or other designated or consulting physician as indicated in the discharge instructions. The patient expressed understanding and was agreeable with this plan. Diagnosis Primary Impression: Hematuria Additional Impressions: Willis catheter problem Qualified Code: T83.9XXA - Willis catheter problem, initial encounter Urinary tract infection Qualified Code: T83.511D - Urinary tract infection associated with indwelling urethral catheter, subsequent encounter Referrals: Primary Care Physician Patient Instructions: Catheter-associated Urinary Tract Infection (ED), Willis Catheter Placement and Care (ED), General Instructions Med/Other Pt SpecificInfo: Prescription(s) given Scripts Levofloxacin (Levaquin)250 Mg [id number] Mg PO DAILY #7 TAB Ref 0 Prov:Deepa Ornelas MD 08/26/16 Disposition: 03 DISCHARGE TO SNF Condition: Stable Deepa Ornelas MD Aug 26, 2016 03:47
[2016-08-26 05:42] VITALS: BP 118/65; PULSE 91; RESP 16; O2SAT 98
[2016-09-09] MEDS ORDERED: TRAM50TA PO (18:06)
== END 2016-08-26 06:40 ==
LOC: NEPC 01:17
DX: R31.9 Hematuria, unspecified (principal); T83.511A Infection and inflammatory reaction due to indwelling urethral catheter, initial encounter; N40.0 Benign prostatic hyperplasia without lower urinary tract symptoms; I10 Essential (primary) hypertension; E78.00 Pure hypercholesterolemia, unspecified; G25.0 Essential tremor; K21.9 Gastro-esophageal reflux disease without esophagitis; Z95.0 Presence of cardiac pacemaker
CPT/HCPCS: 51702; 81001; 87086

== ENCOUNTER 2016-09-09 17:26 | Inpatient (IN) | payer OTHER, MEDICARE ==
[~2016-09-09] VITALS: Ht 175.3 cm; Wt 70.6 kg
[~2016-09-09 17:26] MED LIST changes: +LEVA250T PO
[2016-09-09 17:36] VITALS: BP 130/75; PULSE 83; RESP 22; TEMP 97.7; O2SAT 96
[2016-09-09] MEDS ORDERED: CITRSOL4 PO (18:06)
[2016-09-09] MEDS ORDERED: TRIA.1%T TOPICAL (18:06)
[2016-09-09] MEDS ORDERED: ENEMENE5 PR (18:06)
[2016-09-09] MEDS ORDERED: TRAM50TA PO ×2 (18:06)
[2016-09-09] MEDS ORDERED: EFFE150C PO (18:06)
[2016-09-09] MEDS ORDERED: DULC10SU3 PR (18:06)
[2016-09-09] MEDS ORDERED: MILKSUS PO (18:06)
[2016-09-09] MEDS ORDERED: PROP20TA3 PO (18:06)
[2016-09-09] MEDS ORDERED: SODIUM CHLORIDE 0.9% FLUSH 5 ML FLUSH IVF PRN ×2 (18:15→20:45)
--- NOTE | 2016-09-09 18:30 | PD ---
HPI Chief Complaint: General Weakness Time Seen by Provider: 18:30 Travel History International Travel<30 days: No Contact w/Intl Traveler<30days: No Traveled to known affect area: No History of Present Illness HPI 89-year-old male with a history of hypertension, hyperlipidemia, enlarged prostate is brought to the emergency department from his rehabilitation facility [facility] for evaluation of hematuria and increased lethargy. Per report from alf staff the patient pulled on his Willis catheter earlier today and after this he began to have hematuria produced into the bag. Apparently the alf staff states that he has had some increased lethargy today as well. Patient's is at bedside and provides much of the history as the patient is a poor historian. The patient's states that the patient has had an indwelling Willis catheter for about 6 months now due to BPH and urinary retention and has had recurrent urinary tract infections. States that he's been depressed due to his recent decline in physical health then tried to kill himself in August and was admitted on inpatient psych. He has also had C. difficile that was diagnosed in mid August and has been on vancomycin and after his most recent admission was discharged to a rehabilitation facility. States that he has been weaker the past several months then usual. States that today he does appear to be more fatigued than his baseline but states that he does get weak and tired like this sometimes. The patient denies any complaints. He denies any chest pain, shortness of breath, abdominal pain, nausea, vomiting. No other complaints. PFSH Past Medical History Hx Anticoagulant Therapy: No Arthritis: Yes (rt. knee) Heart Rhythm Problems: Yes Cancer: No Cardiovascular Problems: Yes (PACEMAKER) High Cholesterol: Yes Chest Pain: No Congestive Heart Failure: No Cerebrovascular Accident: No Diminished Hearing: Yes ([place] hearing aids) Endocrine: No Gastrointestinal Disorders: Yes GERD: Yes Genitourinary: Yes (Enlarged Prostate) Hypertension: Yes Immune Disorder: No Implanted Vascular Access Dvce: Yes Kidney Stones: No Musculoskeletal: No Neurologic: Yes (ESSENTIAL TREMORS) Psychiatric: Yes (recently said he would kill himself, [facility] admission) Reproductive: No Respiratory: No Immunizations Current: Yes Migraines: No Renal Failure: No Seizures: No Past Surgical History Abdominal Surgery: No Cardiac Surgery: Yes (PACER) Ear Surgery: No Endocrine Surgery: Yes (goiter) Eye Surgery: Yes (BILAT CATARACT) Genitourinary Surgery: Yes (TURP and 2016) Gynecologic Surgery: No Oral Surgery: No Pacemaker: Yes Thoracic Surgery: No Other Surgery: Yes ( GOITER REMOVED) Social History Alcohol Use: No Tobacco Use: No Substance Use: No Allergies-Medications (Allergen,Severity, Reaction): Coded Allergies: No Known Allergies (Unverified , 09/09/16) Reported Meds & Prescriptions Reported Meds & Active Scripts Active Lisinopril 5 Mg Tab 5 Mg PO DAILY Acidophilus/l-Sporogenes (Lactobacillus Acidophilus) 1 Tab Tab 1 Tab PO TID Norvasc (Amlodipine Besylate) 5 Mg Tab 5 Mg PO DAILY Reported Tramadol (Tramadol HCl) 50 Mg Tab 100 Mg PO Q6H PRN Tramadol (Tramadol HCl) 50 Mg Tab 50 Mg PO Q6H PRN Triamcinolone Topical (Triamcinolone Acetonide) 0.1% Cream 1 Applic TOPICAL BID Appy to perianal area every day and evening shift Propranolol (Propranolol HCl) 20 Mg Tab 20 Mg PO Q12HR Dulcolax Supp (Bisacodyl) 10 Mg Supp 10 Mg IN IN AM PRN Milk of Magnesia Liq (Magnesium Hydroxide) 400 Mg/5 Ml Susp 30 Ml PO HS PRN Enema Disposable (Sodium Phosphates) 1 Kisha Kisha 1 Applic IN IN AM PRN Citroma Liq (Magnesium Citrate) 300 Ml Liq 300 Ml PO IN AM PRN Effexor XR 24 HR (Venlafaxine HCl) 150 Mg Cap 150 Mg PO DAILY Omeprazole 20 Mg Tab 20 Mg PO DAILY Primidone 50 Mg Tab 50 Mg PO BID Review of Systems Except as stated in HPI: all other systems reviewed are Neg Physical Exam Narrative GENERAL: Well-nourished and well-developed elderly male patient in no acute distress. SKIN: Warm and dry. HEAD: Normocephalic and atraumatic. EYES: No injection, drainage, or hyphema noted. PERRLA. EOMI. ENT: No nasal drainage noted. Oropharynx is clear. NECK: Supple and the trachea is midline. CARDIOVASCULAR: Regular rate and rhythm. RESPIRATORY: Breath sounds are equal bilaterally with no accessory muscle use, wheezing, rhonchi, or crackles. GASTROINTESTINAL: Abdomen is soft, non-tender, and nondistended. MUSCULOSKELETAL: No obvious deformities, swelling, cyanosis, or ecchymosis is present throughout the upper and lower extremities. Patient has full range of motion without any signs of neurovascular compromise. NEUROLOGICAL: Awake, alert, and oriented. Normal speech and gait. Cranial nerves are grossly intact. Data Data Last Documented VS Vital Signs Date Time Temp Pulse Resp B/P Pulse Ox O2 Delivery O2 Flow Rate FiO2 09/09/16 23:00 75 18 141/68 100 Nasal Cannula 2 09/09/16 17:36 97.7 Orders Electrocardiogram (09/09/16 18:07) Ammonia (09/09/16 18:07) Complete Blood Count With Diff (09/09/16 18:07) Comprehensive Metabolic Panel (09/09/16 18:07) Creatine Kinase (Cpk) (09/09/16 18:07) Prothrombin Time / Inr (Pt) (09/09/16 18:07) Act Partial Throm Time (Ptt) (09/09/16 18:07) Troponin I (09/09/16 18:07) Urinalysis - C+S If Indicated (09/09/16 18:07) Chest, Single Ap (09/09/16 18:07) Ct Brain W/O Iv Contrast(Rout) (09/09/16 18:07) Ecg Monitoring (09/09/16 18:07) Iv Access Insert/Monitor (09/09/16 18:07) Oximetry (09/09/16 18:07) Sodium Chloride 0.9% Flush (Ns Flush) (09/09/16 18:15) Lactic Acid Sepsis Protocol (09/09/16 19:04) Urine Culture (09/09/16 19:10) Sodium Chlor 0.9% 1000 Ml Inj (Ns 1000 M (09/09/16 19:58) Ct Abd/Pel W/O Iv Contrast (09/09/16 20:40) Us Abdomen Gallbladder (09/09/16 ) Sodium Chloride 0.9% Flush (Ns Flush) (09/09/16 20:45) Blood Culture (09/09/16 20:42) Piperacil-Tazo 4.5 Gm Premix (Zosyn 4.5 (09/09/16 20:45) Vancomycin Inj (Vancomycin Inj) (09/09/16 20:45) Sodium Chlor 0.9% 1000 Ml Inj (Ns 1000 M (09/09/16 20:51) Replace Willis (09/09/16 22:22) C Diff Toxin Pcr (09/09/16 22:37) Admit Order (Ed Use Only) (09/09/16 23:01) Labs Laboratory Tests Test 09/09/16 09/09/16 19:10 21:15 White Blood Count 17.8 TH/MM3 Red Blood Count 4.78 MIL/MM3 Hemoglobin 14.8 GM/DL Hematocrit 41.8 % Mean Corpuscular Volume 87.6 FL Mean Corpuscular Hemoglobin 31.0 PG Mean Corpuscular Hemoglobin 35.4 % Concent Red Cell Distribution Width 15.3 % Platelet Count 252 TH/MM3 Mean Platelet Volume 8.0 FL Neutrophils (%) (Auto) 86.6 % Lymphocytes (%) (Auto) 3.3 % Monocytes (%) (Auto) 9.6 % Eosinophils (%) (Auto) 0.3 % Basophils (%) (Auto) 0.2 % Neutrophils # (Auto) 15.4 TH/MM3 Lymphocytes # (Auto) 0.6 TH/MM3 Monocytes # (Auto) 1.7 TH/MM3 Eosinophils # (Auto) 0.0 TH/MM3 Basophils # (Auto) 0.0 TH/MM3 CBC Comment DIFF FINAL Differential Comment Prothrombin Time 10.7 SEC Prothromb Time International 1.0 RATIO Ratio Activated Partial 28.5 SEC Thromboplast Time Urine Color DARK-BROWN Urine Turbidity CLOUDY Urine pH 5.0 Urine Specific [place] 1.020 Urine Protein 100 mg/dL Urine Glucose (UA) TRACE mg/dL Urine Ketones TRACE mg/dL Urine Occult Blood LARGE Urine Nitrite NEG Urine Bilirubin NEG Urine Urobilinogen LESS THAN 2.0 MG/DL Urine Leukocyte Esterase LARGE Urine RBC /hpf Urine WBC /hpf Urine WBC Clumps MANY Urine Bacteria MOD /hpf Urine Mucus FEW /lpf Microscopic Urinalysis Comment CATH-CULTURE IND Sodium Level 129 MEQ/L Potassium Level 5.2 MEQ/L Chloride Level 94 MEQ/L Carbon Dioxide Level 22.2 MEQ/L Anion Gap 13 MEQ/L Blood Urea Nitrogen 41 MG/DL Creatinine 1.43 MG/DL Estimat Glomerular Filtration 47 ML/MIN Rate Random Glucose 248 MG/DL Lactic Acid Level 2.7 mmol/L 1.5 mmol/L Calcium Level 8.9 MG/DL Total Bilirubin 1.0 MG/DL Aspartate Amino Transf 104 U/L (AST/SGOT) Alanine Aminotransferase 256 U/L (ALT/SGPT) Alkaline Phosphatase 910 U/L Ammonia 35 MCMOL/L Total Creatine Kinase 103 U/L Troponin I LESS THAN 0.02 NG/ML Total Protein 6.7 GM/DL Albumin 2.6 GM/DL [facility] Medical Decision Making Medical Screen Exam Complete: Yes Emergency Medical Condition: Yes Differential Diagnosis Urinary tract infection versus dehydration versus hematuria versus deconditioning Narrative Course 89-year-old male is brought to the emergency department from his rehabilitation facility for evaluation of lethargy and hematuria after accidentally pulling on his Willis catheter. Patient is afebrile, vital signs are stable. Physical examination is essentially unremarkable. IV access is obtained, labs have been drawn and sent. CBC shows an elevated white blood cell count of 17.8. CMP shows acute kidney injury with an elevated creatinine of 1.43, BUN 41, GFR 47. Hyperkalemia with a potassium of 5.2 with slight hemolysis noted. The patient's LFTs are elevated significantly above baseline, specifically alkaline phosphatase is quite elevated at 910. Ammonia is slightly elevated at 35. Troponin is less than 0.02. Lactic acid is elevated at 2.7. Coags are unremarkable. Urinalysis shows 100 protein, trace ketones, large occult blood, large leukocyte esterase, innumerable red blood cells, innumerable white blood cells, many white blood cell clumps, moderate bacteria, few mucus. The patient will be covered empirically with Zosyn and vancomycin. With these elevated LFTs we need to rule out an acute intra-abdominal pathology with ultrasound and CT. CT of the abdomen and pelvis without contrast shows Willis catheter balloon is inflated within the urethra, small gallstones, no inflammatory changes, no duct stone or ductal dilation. Bilateral renal cysts. Patient's Willis is replaced. Gallbladder ultrasound shows multiple subcentimeter gallstones present with no evidence of cholecystitis, ductal stone or ductal dilation. The patient has remained stable while here in the ED. The patient will be admitted for sepsis secondary to urinary tract infection with acute kidney injury. I discussed the case with my attending physician Dr. Ornelas who is aware of the patients history, physical examination findings, and treatment plan. Diagnosis Primary Impression: Sepsis Qualified Code: A41.9 - Sepsis, due to unspecified organism Additional Impressions: UTI (urinary tract infection) due to urinary indwelling Willis catheter Qualified Code: T83.511A - Urinary tract infection associated with indwelling urethral catheter, initial encounter Elevated LFTs Admitting Information Admitting Physician Requests: Admit Cassie Gamino Sep 09, 2016 18:30
[2016-09-09 18:36] VITALS: RESP 22; O2SAT 96
--- NOTE | 2016-09-09 18:53 | RADRPT ---
EXAM DATE/TIME: 09/09/2016 18:35 [facility] COMPARISON: CT BRAIN W/O CONTRAST, August 17, 2016, 16:05. INDICATIONS : Altered mental status. RADIATION DOSE: 56.35 CTDIvol (mGy) MEDICAL HISTORY : Cardiovascular disease. Hypertension. Diabetes mellitus type 2. SURGICAL HISTORY : None. ENCOUNTER: Initial ACUITY: 1 day PAIN SCALE: 0/10 LOCATION: cranial TECHNIQUE: Multiple contiguous axial images were obtained of the head. Using automated exposure control and adj ustment of the mA and/or kV according to patient size, radiation dose was kept as low as reasonably a chievable to obtain optimal diagnostic quality images. FINDINGS: There is mild, diffuse prominence of the ventricles, slightly worse in the interim. Chronic periventr icular white matter low-attenuation is unchanged. No bleed. No mass, mass effect or midline shift. No evidence of an acute ischemic event. Skull is intact. Visualized portions of the paranasal sinuses and mastoid air cells are clear. CONCLUSION: 1. Mild ventriculomegaly appears slightly worse in the interim. Clinical correlation for possible nor mal pressure hydrocephalus recommended. 2. Chronic white matter changes are again noted. 3. No bleed or other acute intercranial abnormality. Bassem Rob MD on September 09, 2016 at 18:49 Board Certified Radiologist. This report was verified electronically.
--- NOTE | 2016-09-09 19:18 | RADRPT ---
EXAM DATE/TIME: 09/09/2016 18:58 [facility] COMPARISON: CHEST SINGLE AP, August 17, 2016, 15:36. INDICATIONS : Short of breath, syncope. MEDICAL HISTORY : None. SURGICAL HISTORY : Pacemaker. ENCOUNTER: Initial ACUITY: 1 day PAIN SCORE: Non-responsive. LOCATION: Bilateral chest FINDINGS: No infiltrate, effusion or pneumothorax demonstrated. Heart size stable, within normal limits. There is a left subclavian transvenous cardiac pacer again noted. CONCLUSION: No evidence of acute cardiopulmonary disease. Bassem Rob MD on September 09, 2016 at 19:16 Board Certified Radiologist. This report was verified electronically.
[2016-09-09 19:23] VITALS: BP 145/78; PULSE 73; RESP 18; O2SAT 98
[2016-09-09 19:35] LABS: AUTOMATED NEUTROPHIL # 15.4 TH/MM3 (1.8-7.7); BASOPHIL % 0.2 % (0.0-2.0); EOSINOPHIL % 0.3 % (0.0-4.0); HEMATOCRIT 41.8 % (39.0-51.0); HEMO FLAGS DIFF FINAL; LYMPH % 3.3 % (9.0-44.0); LYMPHOCYTE # 0.6 TH/MM3 (1.0-4.8); MEAN CELL VOLUME 87.6 FL (80.0-100.0); MEAN CORPUSCULAR HGB CONC 35.4 % (32.0-36.0); MONO % 9.6 % (0.0-8.0); NEUT % 86.6 % (16.0-70.0); PLATELET COUNT 252 TH/MM3 (150-450); RED BLOOD COUNT 4.78 MIL/MM3 (4.50-5.90); RED CELL DISTRIBUTION WIDTH 15.3 % (11.6-17.2); WHITE BLOOD COUNT 17.8 TH/MM3 (4.0-11.0)
[2016-09-09 19:47] LABS: BACTERIA, URINE MOD /hpf; BLOOD, URINE LARGE (NEG); GLUCOSE,URINE TRACE mg/dL (NEG); KETONE, URINE TRACE mg/dL (NEG); MUCUS URINE FEW /lpf (OCC); NITRITE,URINE NEG (NEG); URINE COLOR DARK-BROWN (YELLW/STRAW)
[2016-09-09 19:51] LABS: COMMENT (UR) CATH-CULTURE IND; CULTURE IF INDICATED CATH CULTURE IND
[2016-09-09 19:52] LABS: APTT (PATIENT) 28.5 SEC (24.3-30.1); PROTHROMBIN TIME - PATIENT 10.7 SEC (9.8-11.6)
[2016-09-09] MEDS ORDERED: SODIUM CHLOR 0.9% 1000 ML INJ 1,000 ML IV SCH ×2 (19:58→20:51)
[2016-09-09 20:15] LABS: ALKALINE PHOSPHATASE 910 U/L (45-117); ALT (GPT) 256 U/L (12-78); ANION GAP 13 MEQ/L (5-15); AST (GOT) 104 U/L (15-37); BICARBONATE 22.2 MEQ/L (21.0-32.0); BLOOD UREA NITROGEN 41 MG/DL (7-18); CHLORIDE 94 MEQ/L (98-107); CREATINE KINASE 103 U/L (39-308); GLOMERULAR FILTRATION RATE 47 ML/MIN (>89); SODIUM (NA) 129 MEQ/L (136-145)
[2016-09-09 20:18] LABS: POTASSIUM 5.2 MEQ/L (3.5-5.1)
[2016-09-09] MEDS ORDERED: VANCOMYCIN INJ 1,000 MG in SODIUM CHLOR 0.9% 250 ML INJ 250 ML IV ONE (20:45)
[2016-09-09] MEDS ORDERED: PIPERACIL-TAZO 4.5 GM PREMIX 100 ML IV ONE (20:45)
--- NOTE | 2016-09-09 21:06 | PD ---
Physical Exam Narrative General: The patient is a well-developed well-nourished male in no acute distress Head and Neck exam: Head is normocephalic atraumatic. Eyes: EOMI, pupils are equal round and reactive to light. Nose: Midline septum with pink mucous membranes Mouth: Dentition unremarkable. Moist mucus membranes. Posterior oropharynx is not erythematous. No tonsillar hypertrophy. Uvula midline. Airway patent. Neck: No palpable lymphadenopathy. No nuchal rigidity. No thyromegaly. Cardiovascular: Regular rate and rhythm without murmurs, gallops, or rubs. Lungs: Clear to auscultation bilaterally. No wheezes, rhonchi, or rales. Abdomen: Soft, with tenderness on palpation of the suprapubic area and left lower quadrant of the abdomen, no other tenderness on palpation of the other quadrants of the abdomen. No guarding, rebound, or rigidity. Normal bowel sounds are audible Extremities: No clubbing, cyanosis, or edema. 2+ pulses in all 4 extremities. Back: No spinous process tenderness to palpation. Left-sided CVA tenderness on palpation. Neurologic Exam: Grossly nonfocal. Skin Exam: No rash noted. Intact skin that is warm and dry. Data Data Last Documented VS Vital Signs Date Time Temp Pulse Resp B/P Pulse Ox O2 Delivery O2 Flow Rate FiO2 09/09/16 23:00 75 18 141/68 100 Nasal Cannula 2 09/09/16 17:36 97.7 Orders Electrocardiogram (09/09/16 18:07) Ammonia (09/09/16 18:07) Complete Blood Count With Diff (09/09/16 18:07) Comprehensive Metabolic Panel (09/09/16 18:07) Creatine Kinase (Cpk) (09/09/16 18:07) Prothrombin Time / Inr (Pt) (09/09/16 18:07) Act Partial Throm Time (Ptt) (09/09/16 18:07) Troponin I (09/09/16 18:07) Urinalysis - C+S If Indicated (09/09/16 18:07) Chest, Single Ap (09/09/16 18:07) Ct Brain W/O Iv Contrast(Rout) (09/09/16 18:07) Ecg Monitoring (09/09/16 18:07) Iv Access Insert/Monitor (09/09/16 18:07) Oximetry (09/09/16 18:07) Sodium Chloride 0.9% Flush (Ns Flush) (09/09/16 18:15) Lactic Acid Sepsis Protocol (09/09/16 19:04) Urine Culture (09/09/16 19:10) Sodium Chlor 0.9% 1000 Ml Inj (Ns 1000 M (09/09/16 19:58) Ct Abd/Pel W/O Iv Contrast (09/09/16 20:40) Us Abdomen Gallbladder (09/09/16 ) Sodium Chloride 0.9% Flush (Ns Flush) (09/09/16 20:45) Blood Culture (09/09/16 20:42) Piperacil-Tazo 4.5 Gm Premix (Zosyn 4.5 (09/09/16 20:45) Vancomycin Inj (Vancomycin Inj) (09/09/16 20:45) Sodium Chlor 0.9% 1000 Ml Inj (Ns 1000 M (09/09/16 20:51) Replace Willis (09/09/16 22:22) C Diff Toxin Pcr (09/09/16 22:37) Admit Order (Ed Use Only) (09/09/16 23:01) Labs Laboratory Tests Test 09/09/16 09/09/16 09/09/16 19:10 21:15 22:55 White Blood Count 17.8 TH/MM3 Red Blood Count 4.78 MIL/MM3 Hemoglobin 14.8 GM/DL Hematocrit 41.8 % Mean Corpuscular Volume 87.6 FL Mean Corpuscular Hemoglobin 31.0 PG Mean Corpuscular Hemoglobin 35.4 % Concent Red Cell Distribution Width 15.3 % Platelet Count 252 TH/MM3 Mean Platelet Volume 8.0 FL Neutrophils (%) (Auto) 86.6 % Lymphocytes (%) (Auto) 3.3 % Monocytes (%) (Auto) 9.6 % Eosinophils (%) (Auto) 0.3 % Basophils (%) (Auto) 0.2 % Neutrophils # (Auto) 15.4 TH/MM3 Lymphocytes # (Auto) 0.6 TH/MM3 Monocytes # (Auto) 1.7 TH/MM3 Eosinophils # (Auto) 0.0 TH/MM3 Basophils # (Auto) 0.0 TH/MM3 CBC Comment DIFF FINAL Differential Comment Prothrombin Time 10.7 SEC Prothromb Time International 1.0 RATIO Ratio Activated Partial 28.5 SEC Thromboplast Time Urine Color DARK-BROWN Urine Turbidity CLOUDY Urine pH 5.0 Urine Specific [place] 1.020 Urine Protein 100 mg/dL Urine Glucose (UA) TRACE mg/dL Urine Ketones TRACE mg/dL Urine Occult Blood LARGE Urine Nitrite NEG Urine Bilirubin NEG Urine Urobilinogen LESS THAN 2.0 MG/DL Urine Leukocyte Esterase LARGE Urine RBC /hpf Urine WBC /hpf Urine WBC Clumps MANY Urine Bacteria MOD /hpf Urine Mucus FEW /lpf Microscopic Urinalysis Comment CATH-CULTURE IND Sodium Level 129 MEQ/L Potassium Level 5.2 MEQ/L Chloride Level 94 MEQ/L Carbon Dioxide Level 22.2 MEQ/L Anion Gap 13 MEQ/L Blood Urea Nitrogen 41 MG/DL Creatinine 1.43 MG/DL Estimat Glomerular Filtration 47 ML/MIN Rate Random Glucose 248 MG/DL Lactic Acid Level 2.7 mmol/L 1.5 mmol/L Calcium Level 8.9 MG/DL Total Bilirubin 1.0 MG/DL Aspartate Amino Transf 104 U/L (AST/SGOT) Alanine Aminotransferase 256 U/L (ALT/SGPT) Alkaline Phosphatase 910 U/L Ammonia 35 MCMOL/L Total Creatine Kinase 103 U/L Troponin I LESS THAN 0.02 NG/ML Total Protein 6.7 GM/DL Albumin 2.6 GM/DL Stool C. difficile Toxin (PCR) POSITIVE Stl C. difficile Toxin PRESUMPTIVE Epiderm 027 POSITIVE MDM Medical Record Reviewed: Yes Supervised Visit with RONALDO: Yes Interpretation(s) Last Impressions Abdomen/Pelvis CT 09/09/162039 Signed Impressions: Service Date/Time: Friday, September 09, 2016 20:58 - CONCLUSION: 1. Willis catheter balloon is inflated within the urethra. 2. Small gallstones. No inflammatory changes. No duct stone or ductal dilatation. 3. Bilateral renal cysts. Bassem Rob MD Head CT 09/09/161806 Signed Impressions: Service Date/Time: Friday, September 09, 2016 18:35 - CONCLUSION: 1. Mild ventriculomegaly appears slightly worse in the interim. Clinical correlation for possible normal pressure hydrocephalus recommended. 2. Chronic white matter changes are again noted. 3. No bleed or other acute intercranial abnormality. Bassem Rob MD Chest X-Ray 09/09/161806 Signed Impressions: Service Date/Time: Friday, September 09, 2016 18:58 - CONCLUSION: No evidence of acute cardiopulmonary disease. Bassem Rob MD Gall Bladder Ultrasound 09/09/16 0000 Signed Impressions: Service Date/Time: Friday, September 09, 2016 21:36 - CONCLUSION: 1. Multiple subcentimeter gallstones present. No evidence of cholecystitis. No ductal stone or ductal dilatation. 2. Small echogenic right kidney with several cysts. Bassem Rob MD Narrative Course I, Dr. Ornelas, have reviewed the advance practice practitioner's documentation and am in agreement, met with the patient face to face, made the diagnosis, and the medical decision making was done by me. The patient was initially seen by Cassie. Please see her complete history and physical. *My assessment and Findings: The patient is an 89-year-old male who presents to [facility] emergency Department with a history of generalized weakness and hematuria with a prior history of recurrent urinary tract infections with an indwelling Willis catheter in place. The patient otherwise had no acute complaints. Laboratory studies and imaging studies were ordered in this patient. The patient's evaluation was remarkable for an elevated white blood cell count, signs of a urinary tract infection were also noted. The patient was covered with broad-spectrum antibiotic. The patient chemistries was noted to have a new increase in his liver function tests, AST, ALT, and alkaline phosphatase. An ultrasound of the patient's gallbladder was ordered, as well as a CT scan of the abdomen and pelvis to further evaluate. The patients results were discussed with the patient, including the plan of care. I explained that further testing and/ or monitoring is indicated based on the patients history, examination, and/ or laboratory findings. Therefore, I recommended admission for additional evaluation. The patient expressed understanding and was agreeable with this plan. The patient was admitted to the hospital in stable condition and sent to a bed under the care of the [facility] hospitalist service. Physician Communication Physician Communication The patient's case was discussed with Dr. Amado who did agree to admit the patient for further evaluation and treatment at this time. Diagnosis Primary Impression: Sepsis Qualified Code: A41.9 - Sepsis, due to unspecified organism Additional Impression: UTI (urinary tract infection) due to urinary indwelling Willis catheter Qualified Code: T83.511A - Urinary tract infection associated with indwelling urethral catheter, initial encounter Admitting Information Admitting Physician Requests: Admit Deepa Ornelas MD Sep 09, 2016 21:06
--- NOTE | 2016-09-09 21:26 | RADRPT ---
EXAM DATE/TIME: 09/09/2016 20:58 [facility] COMPARISON: CT ABDOMEN & PELVIS W/O CONTRAST, April 16, 2016, 9:28. INDICATIONS : Abdominal pain and gross hematuria. ORAL CONTRAST: No oral contrast ingested. RADIATION DOSE: 15.83 CTDIvol (mGy) MEDICAL HISTORY : Gastroesophageal reflux disease. Hypertension. SURGICAL HISTORY : Pacemaker. ENCOUNTER: Initial ACUITY: 1 day PAIN SCALE: 5/10 LOCATION: Bilateral lower quadrant TECHNIQUE: Volumetric scanning of the abdomen and pelvis was performed. Using automated exposure control and ad justment of the mA and/or kV according to patient size, radiation dose was kept as low as reasonably achievable to obtain optimal diagnostic quality images. FINDINGS: LOWER LUNGS: The visualized lower lungs are clear. LIVER: Homogeneous density without lesion. There is no dilation of the biliary tree. Tiny gravel-like stone s are suspected within the gallbladder. SPLEEN: Normal size without lesion. PANCREAS: Within normal limits. KIDNEYS: Bilateral renal cysts are again noted, largest on the right 3.3 cm and largest on the left 4.4 cm.. ADRENAL GLANDS: Within normal limits. VASCULAR: There is no aortic aneurysm. BOWEL/MESENTERY: The stomach, small bowel, and colon demonstrate no acute abnormality. There is no free intraperitone al air or fluid. ABDOMINAL WALL: Within normal limits. RETROPERITONEUM: There is no lymphadenopathy. BLADDER: Willis catheter present. The balloon is in the membranous urethra. REPRODUCTIVE: Within normal limits. INGUINAL: There is no lymphadenopathy or hernia. MUSCULOSKELETAL: Within normal limits for patient age. CONCLUSION: 1. Willis catheter balloon is inflated within the urethra. 2. Small gallstones. No inflammatory changes. No duct stone or ductal dilatation. 3. Bilateral renal cysts. Bassem Rob MD on September 09, 2016 at 21:21 Board Certified Radiologist. This report was verified electronically.
[2016-09-09 21:29] LABS: LACTIC ACID GHOST NOT REPORTABLE
[2016-09-09 22:00] VITALS: BP 122/73; PULSE 75; RESP 18; O2SAT 100
--- NOTE | 2016-09-09 22:37 | RADRPT ---
EXAM DATE/TIME: 09/09/2016 21:36 [facility] COMPARISON: No previous studies available for comparison. INDICATIONS : Right upper quadrant pain. Elevated liver function tests. MEDICAL HISTORY : Hypercholesterolemia. Hypertension. Arthritis. GERD. Essential tremors. Enlarged prostate. UTI. Goite r. Cdiff. SURGICAL HISTORY : Pacemaker. Bilateral cataract surgery. Goiter removed. ENCOUNTER: Initial ACUITY: 1 day PAIN SCORE: 2/10 LOCATION: Right upper quadrant MEASUREMENTS: LIVER: 19.4 cm length COMMON DUCT: 4 mm RIGHT KIDNEY: 9.7 x 4.6 x 5.0 cm FINDINGS: LIVER: Normal echotexture without focal lesion or ductal dilatation. Normal flow velocity and direction seen in the main portal vein. COMMON DUCT: No intraluminal mass or stone visualized. GALLBLADDER: Multiple mobile stones are seen the largest about 6 mm. No gallbladder wall thickening or pericholecy stic fluid. Negative sonographic Hendricks's sign. PANCREAS: The visualized portions are within normal limits. RIGHT KIDNEY: Small and echogenic with several cysts. No hydronephrosis. CONCLUSION: 1. Multiple subcentimeter gallstones present. No evidence of cholecystitis. No ductal stone or ductal dilatation. 2. Small echogenic right kidney with several cysts. Bassem Rob MD on September 09, 2016 at 22:33 Board Certified Radiologist. This report was verified electronically.
[2016-09-09 23:00] VITALS: BP_SYST 116; BP_SYST 141; BP_DIAS 64; BP_DIAS 68; PULSE 75; RESP 18; O2SAT 100
[2016-09-10] VITALS (15 sets, daily range): BP systolic 113–150; BP diastolic 63–76; PULSE 61–87; RESP 16–20; TEMP 97.3–99; O2SAT 95–100
[2016-09-10] MEDS ORDERED: NALOXONE HCL 0.4 MG/ML AMP IV PRN (00:30)
[2016-09-10] MEDS ORDERED: SODIUM CHLORIDE 0.9% FLUSH 5 ML FLUSH FLUSH PRN (00:30)
--- NOTE | 2016-09-10 00:59 | HHI.HP ---
[facility] Service [facility] Primary Care Physician [facility] Admission Diagnosis Sepsis, UTI, Elevated LFTs Diagnoses: Chief Complaint: not able to give specific complaints Travel History International Travel<30 Days: No Contact w/Intl Traveler <30 Da: No Traveled to Known Affected Are: No History of Present Illness History from your physician communication, review of medical records, and detention transfer notes. Patient himself is an elderly gentleman who is somewhat confused. He is not really able to tell me a history. When he answers questions, he would sometimes contradict and not really able to elaborate on his answers. As per detention transfer notes, patient was sent because of gross hematuria in excruciating pain at the Willis catheter site. Patient has an indwelling Willis catheter for urinary retention. Per emergency room communication, patient's catheter was actually at the urethra and therefore this was exchanged. After the exchange, patient's hematuria had resolved. Patient denies any falls. Denies any chest pains or shortness of breath. Denies any syncopal episodes at this time. He of course denies most of the symptoms including diarrhea. However per nursing staff, patient was also having copious amount of diarrhea. Patient had recent hospitalization just last month for C. difficile colitis. There was also reported that patient was lethargic per detention notes. His initial arrival to ER, he was given history. It looks more as though he had sundowning effects. Patient himself states that he was able to walk with a walker at the rehabilitation facility. Review of Systems Except as stated in HPI: all other systems reviewed are Neg (Limited review of systems since patient is somewhat having sundowning effects) Past Family Social History Past Medical History Hypertension Hyperlipidemia S/p PPM for syncopal episodes GERD recent C diff Past Surgical History Pacemaker placement Reported Medications Patient's medications listed on EMR from the detention notesreviewed Allergies: Coded Allergies: No Known Allergies (Unverified , 09/09/16) Family History Patient denies any family history of any medical conditions. Physical Exam Vital Signs Vital Signs Date Time Temp Pulse Resp B/P Pulse Ox O2 Delivery O2 Flow Rate FiO2 3/7/17 23:00 75 18 141/68 100 Nasal Cannula 2 09/09/16 22:00 75 18 122/73 100 Nasal Cannula 2 09/09/16 19:23 73 18 145/78 98 Nasal Cannula 2 09/09/16 18:36 22 96 Room Air 09/09/16 17:42 73 22 96 Room Air 09/09/16 17:36 97.7 83 22 130/75 96 Physical Exam GENERAL: This is a elderly gentleman, in no apparent distress. Saturating 98% on 2 L nasal cannula. SKIN: No rashes, ecchymoses or lesions. Cool and dry. HEAD: Atraumatic. Normocephalic. No temporal or scalp tenderness. EYES: No scleral icterus. No injection or drainage. ENT: Nose without bleeding, purulent drainage or septal hematoma.Airway patent. NECK: Trachea midline. No JVD CARDIOVASCULAR: Regular rate and rhythm without murmurs, gallops, or rubs. RESPIRATORY: Clear to auscultation. Breath sounds equal bilaterally. No wheezes , rales, or rhonchi. GASTROINTESTINAL: Abdomen soft, non-tender, nondistended. No guarding. MUSCULOSKELETAL: Extremities without clubbing, cyanosis, or edema. . No calf tenderness. NEUROLOGICAL: Awake Motor and sensory grossly within normal limits. Normal speech. Laboratory Laboratory Tests Test 09/09/16 09/09/16 19:10 21:15 White Blood Count 17.8 Red Blood Count 4.78 Hemoglobin 14.8 Hematocrit 41.8 Mean Corpuscular Volume 87.6 Mean Corpuscular Hemoglobin 31.0 Mean Corpuscular Hemoglobin 35.4 Concent Red Cell Distribution Width 15.3 Platelet Count 252 Mean Platelet Volume 8.0 Neutrophils (%) (Auto) 86.6 Lymphocytes (%) (Auto) 3.3 Monocytes (%) (Auto) 9.6 Eosinophils (%) (Auto) 0.3 Basophils (%) (Auto) 0.2 Neutrophils # (Auto) 15.4 Lymphocytes # (Auto) 0.6 Monocytes # (Auto) 1.7 Eosinophils # (Auto) 0.0 Basophils # (Auto) 0.0 CBC Comment DIFF FINAL Differential Comment Prothrombin Time 10.7 Prothromb Time International 1.0 Ratio Activated Partial 28.5 Thromboplast Time Urine Color DARK-BROWN Urine Turbidity CLOUDY Urine pH 5.0 Urine Specific [place] 1.020 Urine Protein 100 Urine Glucose (UA) TRACE Urine Ketones TRACE Urine Occult Blood LARGE Urine Nitrite NEG Urine Bilirubin NEG Urine Urobilinogen LESS THAN 2.0 Urine Leukocyte Esterase LARGE Urine RBC Urine WBC Urine WBC Clumps MANY Urine Bacteria MOD Urine Mucus FEW Microscopic Urinalysis Comment CATH-CULTURE IND Sodium Level 129 Potassium Level 5.2 Chloride Level 94 Carbon Dioxide Level 22.2 Anion Gap 13 Blood Urea Nitrogen 41 Creatinine 1.43 Estimat Glomerular Filtration 47 Rate Random Glucose 248 Lactic Acid Level 2.7 1.5 Calcium Level 8.9 Total Bilirubin 1.0 Aspartate Amino Transf 104 (AST/SGOT) Alanine Aminotransferase 256 (ALT/SGPT) Alkaline Phosphatase 910 Ammonia 35 Total Creatine Kinase 103 Troponin I LESS THAN 0.02 Total Protein 6.7 Albumin 2.6 Date/Time Procedure Status Source Growth 09/09/16 21:10 Aerobic Blood Culture Received Blood Peripheral Pending 09/09/16 21:10 Anaerobic Blood Culture Received Blood Peripheral Pending 09/09/16 19:10 Urine Culture Received Urine Catheterized Urine Pending Result Diagram: 09/09/16190909/09/161909 Assessment and Plan Problem List: (1) UTI (urinary tract infection) due to urinary indwelling Willis catheter ICD Code: T83.511A Status: Acute (2) Elevated LFTs ICD Code: R94.5 Status: Acute (3) Hematuria ICD Code: R31.9 Status: Acute (4) C. difficile diarrhea ICD Code: A04.7 Status: Acute Assessment and Plan Impression: Gross hematuria/Willis malfunctionresolved after adjustment and replacement. Complicated UTIin a patient with indwelling Willis. Diarrheawith history of recent C. difficile. Rule out recurrence. Leukocytosis with left shift Lactic acid acidosis LFT elevation CT abdomen, and ultrasound of the abdomenreviewed. No acute cholecystitis/biliary tract obstruction. Plan: Hematuria is currently resolved. Willis catheter was suggested. We'll follow up urine culture results. For now, start patient on Zosyn 4.5 g IV every 6 hours. Stool for C. difficile. Will add Vanco by mouth/Flagyl if stool studies are positive for C. difficile. Resume rest of his home medications. DVT prophylaxiswith SCD. GI prophylaxis on pantoprazole. Discussed Condition With patient, ER MD, ER nurse Physician Certification 2 Midnight Certification Type: Admission for Inpatient Services Order for Inpatient Services The services are ordered in accordance with Medicare regulations or non- Medicare payer requirements, as applicable. In the case of services not specified as inpatient-only, they are appropriately provided as inpatient services in accordance with the 2-midnight benchmark. Estimated LOS (days): 3 days is the estimated time the patient will need to remain in the hospital, assuming treatment plan goals are met and no additional complications. Post-Hospital Plan: SNF Problem Qualifiers (1) UTI (urinary tract infection) due to urinary indwelling Willis catheter: Qualified Code: T83.511A - Urinary tract infection associated with indwelling urethral catheter, initial encounter Zack Amado MD Sep 10, 2016 00:59
[2016-09-10] MEDS ORDERED: traMADol HCL 50 MG TAB PO PRN (01:45)
[2016-09-10] MEDS: PIPERACIL-TAZO 4.5 GM PREMIX 100 ML IV SCH ×3 (03:31→15:17)
[2016-09-10] MEDS: metroNIDAZOLE 500 MG INJ 100 ML IV SCH ×2 (08:43→13:34)
[2016-09-10] MEDS: TRIAMCINOLONE ACETONIDE 0.1% CREAM 15 GM TOPICAL SCH (09:00)
[2016-09-10] MEDS: VENLAFAXINE HCL XR 75 MG CAP PO SCH (09:00)
[2016-09-10] MEDS: SODIUM CHLORIDE 0.9% FLUSH 5 ML FLUSH FLUSH SCH (09:00)
[2016-09-10] MEDS: amLODIPine BESYLATE 5 MG TAB PO SCH (10:49)
[2016-09-10] MEDS: LISINOPRIL 5 MG TAB PO SCH (10:50)
[2016-09-10] MEDS: PROPRANOLOL HCL 20 MG TAB PO SCH (10:50)
[2016-09-10] MEDS: PANTOPRAZOLE SOD 20 MG DELAYED RELEASE TAB PO SCH (10:50)
[2016-09-10] MEDS: LACTOBACILLUS ACIDOPHILUS TAB PO SCH ×3 (10:50→17:51)
[2016-09-10] MEDS: PRIMIDONE 50 MG TAB PO SCH (10:51)
[2016-09-10] MEDS: VANCOMYCIN 500 MG VIAL (FOR ORAL USE ONLY) PO SCH ×3 (10:51→17:51)
--- NOTE | 2016-09-10 13:22 | HHI.PR ---
Subjective Remarks Patient's a somnolent but arousable to verbal stimuli Seems to be comfortable, 2 for C. difficile was positive, his lactic acid decreasing however his creatinine is 1.43 ammonia increased to 35, as well as LFT and alkaline phosphatase Objective Vitals Vital Signs Date Time Temp Pulse Resp B/P Pulse Ox O2 Delivery O2 Flow Rate FiO2 09/10/16 11:20 75 18 113/75 97 Room Air 09/10/16 08:39 86 20 116/63 09/10/16 06:00 87 18 150/76 100 Nasal Cannula 2 09/10/16 03:00 80 18 129/69 100 Nasal Cannula 2 09/09/16 23:00 75 18 141/68 100 Nasal Cannula 2 09/09/16 22:00 75 18 122/73 100 Nasal Cannula 2 09/09/16 19:23 73 18 145/78 98 Nasal Cannula 2 09/09/16 18:36 22 96 Room Air 09/09/16 17:42 73 22 96 Room Air 09/09/16 17:36 97.7 83 22 130/75 96 Result Diagram: 09/09/16190909/09/161909 Objective Remarks - GENERAL: Frail elderly 89 years old patient who somnolent CARDIOVASCULAR: Regular rate and rhythm without murmurs, gallops, or rubs. RESPIRATORY: Fair air entry bilaterally. No wheezes, rales, or rhonchi. GASTROINTESTINAL: Abdomen soft, non-tender, nondistended. Normal active bowel sounds MUSCULOSKELETAL: Extremities without clubbing, cyanosis, or edema. NEURO: Somnolent. Moves all ext x4 A/P Problem List: (1) UTI (urinary tract infection) due to urinary indwelling Willis catheter ICD Code: T83.511A Status: Acute (2) Elevated LFTs ICD Code: R94.5 Status: Acute (3) Hematuria ICD Code: R31.9 Status: Acute (4) C. difficile diarrhea ICD Code: A04.7 Status: Acute Assessment and Plan Gross hematuria with Willis malfunction>> resolved Complicated UTI in patient with indwelling catheter C. difficile diarrhea JIMMIE creatinine 1.43 base line below Hyperkalemia 5.5 Leukocytosis with left shift Lactic acidosis improved Transaminitis with increased alkaline phosphatase and bilirubin Hyperammonemia DVT prophylaxis hold heparin due to gross hematuria, consider resuming when stable Plan: Patient runs 8 beats of V. tach as per the nurse, his magnesium is 1.8 will give 2 g magnesium sulfate and monitor BMP Will give gentle iv fluid 75 ns due to diarrhea We will hold on lactulose for now due to the diarrhea, continue monitoring ammonia Willis catheter inserted Follow urine culture On Zosyn for UTI, DC if culture negative Flagyl iv and by mouth vancomycin for third relapse multiple episode C. difficile SCD for DVT prophylaxis hold heparin for now due to hematuria Problem Qualifiers (1) UTI (urinary tract infection) due to urinary indwelling Willis catheter: Qualified Code: T83.511A - Urinary tract infection associated with indwelling urethral catheter, initial encounter Jordan Garcia MD Sep 10, 2016 13:22
[2016-09-10] MEDS: SODIUM CHLOR 0.9% 1000 ML INJ 1,000 ML IV SCH (13:34)
[2016-09-10] MEDS: LACTULOSE SYRUP 20 GM/30 ML CUP PO SCH ×3 (14:00→21:00)
[2016-09-10 14:02] LABS: AUTOMATED NEUTROPHIL # 12.4 TH/MM3 (1.8-7.7); BASOPHIL # 0.1 TH/MM3 (0-0.2); BASOPHIL % 0.4 % (0.0-2.0); EOSINOPHIL # 0.1 TH/MM3 (0-0.4); EOSINOPHIL % 0.5 % (0.0-4.0); HEMATOCRIT 40.5 % (39.0-51.0); HEMO FLAGS DIFF FINAL; LYMPH % 3.8 % (9.0-44.0); LYMPHOCYTE # 0.6 TH/MM3 (1.0-4.8); MEAN CELL VOLUME 90.1 FL (80.0-100.0); MEAN CORPUSCULAR HEMOGLOBIN 30.8 PG (27.0-34.0); MEAN CORPUSCULAR HGB CONC 34.2 % (32.0-36.0); NEUT % 82.3 % (16.0-70.0); PLATELET COUNT 222 TH/MM3 (150-450); RED BLOOD COUNT 4.49 MIL/MM3 (4.50-5.90); RED CELL DISTRIBUTION WIDTH 14.9 % (11.6-17.2)
[2016-09-10 14:30] LABS: BICARBONATE 22.1 MEQ/L (21.0-32.0); POTASSIUM 3.6 MEQ/L (3.5-5.1)
[2016-09-10 14:41] LABS: INDIRECT BILIRUBIN 0.5 MG/DL (0.0-0.8); TOTAL BILIRUBIN ADULT 1.5 MG/DL (0.2-1.0)
[2016-09-10 16:43] LABS: C. DIFF TOXIN PCR POSITIVE (NEGATIVE)
[2016-09-10 16:44] LABS: C. DIFF EPI 027 PRESUMPTIVE POSITIVE (NEGATIVE)
[2016-09-10] MEDS: MAGNESIUM SULFATE 1 GM PREMIX 100 ML IV SCH ×2 (16:59→17:52)
[2016-09-10] MEDS: HEPARIN SODIUM - SQ 10,000 UNITS/ML VIAL SQ SCH (17:02)
--- NOTE | 2016-09-10 18:36 | EKG ---
Date Performed: 09/09/2016 Time Performed: 22:15:55 PTAGE: 89 years EKG: ELECTRONIC ATRIAL PACEMAKER ELECTRONIC VENTRICULAR PACEMAKER ABNORMAL RHYTHM ECG PREVIOUS TRACING : 09/09/2016 22.14 DOCTOR: Devante Uribe Interpretating Date/Time 09/10/2016 18:34:21
--- NOTE | 2016-09-10 18:36 | EKG ---
Date Performed: 09/09/2016 Time Performed: 22:14:34 PTAGE: 89 years EKG: ELECTRONIC VENTRICULAR PACEMAKER ABNORMAL RHYTHM ECG Underlying atrial fibrillation PREVIOUS TRACING : 09/09/2016 19.16 DOCTOR: Devante Uribe Interpretating Date/Time 09/10/2016 18:34:50
--- NOTE | 2016-09-10 18:40 | EKG ---
Date Performed: 09/09/2016 Time Performed: 19:16:43 PTAGE: 89 years EKG: UNCERTAIN IRREGULAR RHYTHM ELECTRONIC VENTRICULAR PACEMAKER -- CONTOUR ANALYSIS BASED ON IN TRINSIC RHYTHM RIGHT BUNDLE BRANCH BLOCK ABNORMAL ECG PREVIOUS TRACING : 08/17/2016 15.34 DOCTOR: Devante Uribe Interpretating Date/Time 09/10/2016 18:37:11
[2016-09-10 20:55] LABS: BICARBONATE 21.4 MEQ/L (21.0-32.0); MAGNESIUM 2.7 MG/DL (1.5-2.5); POTASSIUM 3.5 MEQ/L (3.5-5.1)
[2016-09-11] VITALS (26 sets, daily range): BP systolic 107–150; BP diastolic 55–75; PULSE 63–82; RESP 16–20; TEMP 97.3–98.6; O2SAT 98–100
[2016-09-11] MEDS: PROPRANOLOL HCL 20 MG TAB PO SCH ×3 (00:03→21:11)
[2016-09-11] MEDS: PIPERACIL-TAZO 4.5 GM PREMIX 100 ML IV SCH ×2 (00:03→03:00)
[2016-09-11] MEDS: VANCOMYCIN 500 MG VIAL (FOR ORAL USE ONLY) PO SCH ×5 (00:03→21:11)
[2016-09-11] MEDS: SODIUM CHLORIDE 0.9% FLUSH 5 ML FLUSH FLUSH SCH ×3 (00:03→21:11)
[2016-09-11] MEDS: metroNIDAZOLE 500 MG INJ 100 ML IV SCH ×5 (00:04→17:49)
[2016-09-11] MEDS: PRIMIDONE 50 MG TAB PO SCH ×3 (00:04→21:11)
[2016-09-11] MEDS: TRIAMCINOLONE ACETONIDE 0.1% CREAM 15 GM TOPICAL SCH ×3 (00:05→21:12)
[2016-09-11] MEDS: HEPARIN SODIUM - SQ 10,000 UNITS/ML VIAL SQ SCH ×3 (01:00→17:00)
[2016-09-11] MEDS: SODIUM CHLOR 0.9% 1000 ML INJ 1,000 ML IV SCH ×2 (02:40→16:00)
[2016-09-11 05:08] LABS: AUTOMATED NEUTROPHIL # 13.2 TH/MM3 (1.8-7.7); BASOPHIL # 0.1 TH/MM3 (0-0.2); BASOPHIL % 0.4 % (0.0-2.0); EOSINOPHIL # 0.1 TH/MM3 (0-0.4); EOSINOPHIL % 0.5 % (0.0-4.0); HEMATOCRIT 37.1 % (39.0-51.0); HEMO FLAGS DIFF FINAL; LYMPH % 3.5 % (9.0-44.0); LYMPHOCYTE # 0.6 TH/MM3 (1.0-4.8); MEAN CELL VOLUME 88.1 FL (80.0-100.0); MEAN CORPUSCULAR HGB CONC 35.2 % (32.0-36.0); MONO % 11.2 % (0.0-8.0); NEUT % 84.4 % (16.0-70.0); PLATELET COUNT 237 TH/MM3 (150-450); RED BLOOD COUNT 4.21 MIL/MM3 (4.50-5.90); RED CELL DISTRIBUTION WIDTH 14.8 % (11.6-17.2); WHITE BLOOD COUNT 15.7 TH/MM3 (4.0-11.0)
[2016-09-11 05:42] LABS: ALT (GPT) 124 U/L (12-78); ANION GAP 11 MEQ/L (5-15); AST (GOT) 27 U/L (15-37); BICARBONATE 22.8 MEQ/L (21.0-32.0); BLOOD UREA NITROGEN 33 MG/DL (7-18); CHLORIDE 99 MEQ/L (98-107); GLOMERULAR FILTRATION RATE 52 ML/MIN (>89); MAGNESIUM 2.5 MG/DL (1.5-2.5); POTASSIUM 3.2 MEQ/L (3.5-5.1); SODIUM (NA) 133 MEQ/L (136-145)
[2016-09-11 05:44] LABS: ALKALINE PHOSPHATASE 510 U/L (45-117); TOTAL BILIRUBIN ADULT 1.7 MG/DL (0.2-1.0)
[2016-09-11] MEDS: LACTULOSE SYRUP 20 GM/30 ML CUP PO SCH ×2 (09:00→21:00)
[2016-09-11] MEDS: LACTOBACILLUS ACIDOPHILUS TAB PO SCH ×3 (09:08→17:00)
[2016-09-11] MEDS: LISINOPRIL 5 MG TAB PO SCH (09:08)
[2016-09-11] MEDS: amLODIPine BESYLATE 5 MG TAB PO SCH (09:08)
[2016-09-11] MEDS: PANTOPRAZOLE SOD 20 MG DELAYED RELEASE TAB PO SCH (09:08)
[2016-09-11] MEDS ORDERED: PNEUMOCOCCAL POLYVALENT INJ 25 MCG/0.5 ML SYR IM ONE (10:00)
[2016-09-11] MEDS: VENLAFAXINE HCL XR 75 MG CAP PO SCH (10:02)
[2016-09-11] MEDS: PIPERACIL-TAZO 3.375 GM PREMIX 50 ML IV SCH ×3 (10:02→21:18)
[2016-09-11] MEDS ORDERED: POTASSIUM CHLORIDE 20 MEQ CONTROLLED RELEASE TAB PO ONE (11:45)
--- NOTE | 2016-09-11 14:20 | HHI.PR ---
Subjective Remarks Patient in bed getting clean by the nurses had a large BM Afebrile feeling fatigued and tired I discussed with the nurse and with his family His labs looks better mostly will be hydrated prior Objective Vitals Vital Signs Date Time Temp Pulse Resp B/P Pulse Ox O2 Delivery O2 Flow Rate FiO2 09/11/16 11:00 79 09/11/16 10:00 76 09/11/16 09:00 76 09/11/16 08:00 98.0 79 16 144/55 100 09/11/16 08:00 72 09/11/16 07:00 79 09/11/16 06:10 98.1 63 16 107/57 98 09/11/16 06:00 82 09/11/16 05:00 72 09/11/16 04:00 76 09/11/16 03:00 70 09/11/16 01:46 97.3 73 16 150/75 99 09/11/16 01:00 74 09/11/16 00:00 82 09/10/16 22:00 80 09/10/16 21:39 97.3 61 16 140/64 99 09/10/16 21:00 78 09/10/16 20:00 72 09/10/16 19:00 72 09/10/16 16:00 99.0 85 18 138/73 99 09/10/16 15:00 84 I/O 09/10/16 09/10/16 09/10/16 09/11/16 09/11/16 09/11/16 07:00 15:00 23:00 07:00 15:00 23:00 Intake Total 240 ml 240 ml Output Total 805 ml 478 ml Balance -565 ml -238 ml Intake Oral 240 ml 240 ml Output Urine Total 800 ml 475 ml Stool Total 5 ml 3 ml Result Diagram: 09/11/16 0451 09/11/16 0451 Objective Remarks - GENERAL: Frail elderly 89 years old patient who somnolent CARDIOVASCULAR: Regular rate and rhythm without murmurs, gallops, or rubs. RESPIRATORY: Fair air entry bilaterally. No wheezes, rales, or rhonchi. GASTROINTESTINAL: Abdomen soft, non-tender, nondistended. Normal active bowel sounds MUSCULOSKELETAL: Extremities without clubbing, cyanosis, or edema. NEURO: Somnolent. Moves all ext x4 A/P Problem List: (1) UTI (urinary tract infection) due to urinary indwelling Willis catheter ICD Code: T83.511A Status: Acute (2) Elevated LFTs ICD Code: R94.5 Status: Acute (3) Hematuria ICD Code: R31.9 Status: Acute (4) C. difficile diarrhea ICD Code: A04.7 Status: Acute Assessment and Plan 09/11/16: Hypokalemia today K3.2, replace, diarrhea ongoing, continue Vancopo and Flagyl iv, no more hematuria, hemoglobin stable around 13 Increase AST and ALK phosphorus, will check a CHAD, ASMA, will consult GI A/P Gross hematuria with Willis malfunction>> resolved Complicated UTI in patient with indwelling catheter C. difficile diarrhea JIMMIE creatinine 1.43 Hyperkalemia 5.5 resolved Leukocytosis with left shift Lactic acidosis resolved Transaminitis with increased alkaline phosphatase and bilirubin>> check CHAD, ASMA, consult GI Hyperammonemia>> resolved ammonia 25 DVT prophylaxis hold heparin due to gross hematuria, consider resuming when stable Plan: Patient runs 8 beats of V. tach as per the nurse, his magnesium is 1.8 will give 2 g magnesium sulfate and monitor BMP Will give gentle iv fluid 75 ns due to diarrhea We will hold on lactulose for now due to the diarrhea, continue monitoring ammonia Willis catheter inserted Follow urine culture On Zosyn for UTI, DC if culture negative Flagyl iv and by mouth vancomycin for third relapse multiple episode C. difficile SCD for DVT prophylaxis hold heparin for now due to hematuria Problem Qualifiers (1) UTI (urinary tract infection) due to urinary indwelling Willis catheter: Qualified Code: T83.511A - Urinary tract infection associated with indwelling urethral catheter, initial encounter Jordan Garcia MD Sep 11, 2016 14:20
--- NOTE | 2016-09-11 14:36 | PD.CONS ---
HPI History of Present Illness This is a 89 year old male with chronic indwelling catheter, chronic UTIS, with under line confusion and dementia and not able to provide history who was [facility] here [facility] for gross hematuria which has resolved with Willis exchange. He was also found (+) for C-diff and started on Vancomycin and Flagyl. GI consulted for elevated LFTs. On admission AST 104, ALT 256, ALP 910, bili 1, today AST 27, [id number], ALP 510, bili 1.7. Patient denies nausea, vomiting or abdomen pain. Nurse confirmed. He is having few loose stools per nurse. Abdomen/Pelvis CT 09/09/16 1. Willis catheter balloon is inflated within the urethra. 2. Small gallstones. No inflammatory changes. No duct stone or ductal dilatation. 3. Bilateral renal cysts. Gall Bladder Ultrasound 09/09/16 1. Multiple subcentimeter gallstones present. No evidence of cholecystitis. No ductal stone or ductal dilatation. 2. Small echogenic right kidney with several cysts. Patient has a pace maker. He has leukocytosis WBC 15.7 PFSH Past Medical History Hypertension Hyperlipidemia S/p PPM for syncopal episodes GERD recent C diff Past Surgical History Pacemaker placement Coded Allergies: No Known Allergies (Unverified , 09/09/16) Medications Current Medications Medications (Trade) Dose Ordered Sig/Sarita Route Start Time Stop Time Status Last Admin (NS Flush) 2 ml UNSCH PRN FLUSH 09/10/16 00:30 (NS Flush) 2 ml BID FLUSH 09/10/16 09:00 09/11/16 09:08 (Narcan Inj) 0.4 mg UNSCH PRN IV 09/10/16 00:30 (Norvasc) 5 mg DAILY PO 09/10/16 09:00 09/11/16 09:08 (Lactinex) 1 tab TID PO 09/10/16 09:00 09/11/16 13:38 (Prinivil) 5 mg DAILY PO 09/10/16 09:00 09/11/16 09:08 (Protonix) 20 mg DAILY PO 09/10/16 09:00 09/11/16 09:08 (Mysoline) 50 mg BID PO 09/10/16 09:00 09/11/16 00:04 (Inderal) 20 mg Q12HR PO 09/10/16 09:00 09/11/16 09:08 (Ultram) 50 mg Q6H PRN PO 09/10/16 01:45 (Ultram) 100 mg Q6H PRN PO 09/10/16 01:45 (Aristocort 0.1% Cream) 1 applic BID TOPICAL 09/10/16 09:00 09/11/16 09:11 (Effexor Xr) 150 mg DAILY PO 09/10/16 09:00 09/11/16 10:02 Vancomycin HCl 125 mg 125 mg QID PO 09/10/16 09:00 09/11/16 13:38 (Flagyl 500 Mg Inj) 100 ml @ 100 mls/hr Q6H IV 09/10/16 07:00 09/11/16 13:37 Lactulose 30 ml 30 ml BID PO 09/10/16 14:00 (NS 1000 ml Inj) 1,000 ml @ 75 mls/hr [id number] IV 09/10/16 14:00 09/11/16 02:40 Heparin Sodium (Porcine) 5000 units 5,000 units Q8H SQ 09/10/16 17:00 09/10/16 17:02 (Zosyn 3.375 Gm Premix) 50 ml @ 100 mls/hr Q6H IV 09/11/16 09:00 09/11/16 10:02 Family History not able to obtain Social History He is a jail resident No alcohol or smoking Review of Systems Constitutional: DENIES: Fever, Chills Eyes: DENIES: Double Vision Respiratory: DENIES: Shortness of breath Cardiovascular: DENIES: Lower Extremity Edema Gastrointestinal: DENIES: Abdominal pain, Black stools, Bloody stools, Constipation, Diarrhea, Nausea, Vomiting, Difficulty Swallowing, Anorexia, Odynophagia, Heartburn, Hematemesis Genitourinary: DENIES: Hematuria Musculoskeletal: DENIES: Neck pain Integumentary: DENIES: Jaundice Hematologic/lymphatic: DENIES: Bruising Immunologic/allergic: DENIES: Eczema Neurologic: DENIES: Headache Psychiatric: DENIES: Anxiety ROS Patient with under line dementia, I doubt this is accurate ROS GI Exam Vitals I&O Vital Signs Date Time Temp Pulse Resp B/P Pulse Ox O2 Delivery O2 Flow Rate FiO2 09/11/16 11:00 79 09/11/16 10:00 76 09/11/16 09:00 76 09/11/16 08:00 98.0 79 16 144/55 100 09/11/16 08:00 72 09/11/16 07:00 79 09/11/16 06:10 98.1 63 16 107/57 98 09/11/16 06:00 82 09/11/16 05:00 72 09/11/16 04:00 76 09/11/16 03:00 70 09/11/16 01:46 97.3 73 16 150/75 99 09/11/16 01:00 74 09/11/16 00:00 82 09/10/16 22:00 80 09/10/16 21:39 97.3 61 16 140/64 99 09/10/16 21:00 78 09/10/16 20:00 72 09/10/16 19:00 72 09/10/16 16:00 99.0 85 18 138/73 99 09/10/16 15:00 84 I/O 09/10/16 09/10/16 09/10/16 09/11/16 09/11/16 09/11/16 07:00 15:00 23:00 07:00 15:00 23:00 Intake Total 240 ml 240 ml Output Total 805 ml 478 ml Balance -565 ml -238 ml Intake Oral 240 ml 240 ml Output Urine Total 800 ml 475 ml Stool Total 5 ml 3 ml Imaging Last Impressions Abdomen/Pelvis CT 09/09/[id number] Signed Impressions: Service Date/Time: Friday, September 09, 2016 20:58 - CONCLUSION: 1. Willis catheter balloon is inflated within the urethra. 2. Small gallstones. No inflammatory changes. No duct stone or ductal dilatation. 3. Bilateral renal cysts. Bassem Rob MD Head CT 09/09/161806 Signed Impressions: Service Date/Time: Friday, September 09, 2016 18:35 - CONCLUSION: 1. Mild ventriculomegaly appears slightly worse in the interim. Clinical correlation for possible normal pressure hydrocephalus recommended. 2. Chronic white matter changes are again noted. 3. No bleed or other acute intercranial abnormality. Bassem Rob MD Chest X-Ray 09/09/[id number] Signed Impressions: Service Date/Time: Friday, September 09, 2016 18:58 - CONCLUSION: No evidence of acute cardiopulmonary disease. Bassem Rob MD Gall Bladder Ultrasound 09/09/16 0000 Signed Impressions: Service Date/Time: Friday, September 09, 2016 21:36 - CONCLUSION: 1. Multiple subcentimeter gallstones present. No evidence of cholecystitis. No ductal stone or ductal dilatation. 2. Small echogenic right kidney with several cysts. Bassem Rob MD Laboratory Test 09/10/16 09/11/16 20:00 04:51 Sodium Level 129 MEQ/L 133 MEQ/L Potassium Level 3.5 MEQ/L 3.2 MEQ/L Chloride Level 96 MEQ/L 99 MEQ/L Carbon Dioxide Level 21.4 MEQ/L 22.8 MEQ/L Anion Gap 12 MEQ/L 11 MEQ/L Blood Urea Nitrogen 36 MG/DL 33 MG/DL Creatinine 1.30 MG/DL 1.31 MG/DL Estimat Glomerular Filtration 52 ML/MIN 52 ML/MIN Rate Random Glucose 190 MG/DL 160 MG/DL Calcium Level 8.2 MG/DL 8.5 MG/DL Phosphorus Level 3.4 MG/DL Magnesium Level 2.7 MG/DL 2.5 MG/DL White Blood Count 15.7 TH/MM3 Red Blood Count 4.21 MIL/MM3 Hemoglobin 13.1 GM/DL Hematocrit 37.1 % Mean Corpuscular Volume 88.1 FL Mean Corpuscular Hemoglobin 31.0 PG Mean Corpuscular Hemoglobin 35.2 % Concent Red Cell Distribution Width 14.8 % Platelet Count 237 TH/MM3 Mean Platelet Volume 7.9 FL Neutrophils (%) (Auto) 84.4 % Lymphocytes (%) (Auto) 3.5 % Monocytes (%) (Auto) 11.2 % Eosinophils (%) (Auto) 0.5 % Basophils (%) (Auto) 0.4 % Neutrophils # (Auto) 13.2 TH/MM3 Lymphocytes # (Auto) 0.6 TH/MM3 Monocytes # (Auto) 1.8 TH/MM3 Eosinophils # (Auto) 0.1 TH/MM3 Basophils # (Auto) 0.1 TH/MM3 CBC Comment DIFF FINAL Differential Comment Total Bilirubin 1.7 MG/DL Aspartate Amino Transf 27 U/L (AST/SGOT) Alanine Aminotransferase 124 U/L (ALT/SGPT) Alkaline Phosphatase 510 U/L Ammonia 25 MCMOL/L B-Type Natriuretic Peptide 215 PG/ML Total Protein 5.0 GM/DL Albumin 2.0 GM/DL Date/Time Procedure Status Source Growth 09/09/16 21:15 Aerobic Blood Culture - Preliminary Resulted Blood Peripheral NO GROWTH IN 2 DAYS 09/09/16 21:15 Anaerobic Blood Culture - Preliminary Resulted Blood Peripheral NO GROWTH IN 2 DAYS 09/09/16 20:42 Aerobic Blood Culture Received Blood Peripheral Pending 09/09/16 20:42 Anaerobic Blood Culture Received Blood Peripheral Pending 09/09/16 19:10 Urine Culture - Final Complete Urine Catheterized Urine Staphylococcus Epidermidis Physical Examination HEENT: normocephalic; atraumatic; no jaundice. Throat is clear. NECK: Neck is supple, no JVD, no lymphadenopathy. CHEST: Chest is clear to auscultation and percussion. CARDIAC: Regular rate and rhythm with no murmur gallop or rubs. ABDOMEN: Soft, nondistended, nontender; no hepatosplenomegaly; bowel sounds are present in all four quadrants. EXTREMITIES: No clubbing, cyanosis, or edema. SKIN: Normal; no rash; no jaundice. [employer]: Alert, confused . Assessment and Plan Plan - Transaminitis- Actually trending down. ? passing stone or biliary stone, no indication on imaging. On admission AST 104, ALT 256, ALP 910, bili 1, today AST 27, APC227, ALP 510 , bili 1.7. Patient denies nausea, vomiting or abdomen pain. Nurse confirmed. He is having few loose stools per nurse. Abdomen/Pelvis CT 09/09/16 1. Willis catheter balloon is inflated within the urethra. 2. Small gallstones. No inflammatory changes. No duct stone or ductal dilatation. 3. Bilateral renal cysts. Gall Bladder Ultrasound 09/09/16 1. Multiple subcentimeter gallstones present. No evidence of cholecystitis. No ductal stone or ductal dilatation. 2. Small echogenic right kidney with several cysts. Patient has a pace maker and will not be able to have MRCP - Gross hematuria with Willis malfunction>> resolved - C. difficile diarrhea- on Vanco, Flagyl and Zosyn - Complicated UTI in patient with indwelling catheter - Leukocytosis with left shift/lactic acidosis- improved abx - JIMMIE per attending - Hypokalemia per attending - Hyperammonemia- Resolved Plan: - JHONY - Will order HIDA, patient not able to have MRCP - LFTs in am - Cont. Abx - Supportive care - Patient seen and examined by Dr. Akers and myself and this note is written on his behalf. Kinga Sanford Sep 11, 2016 14:36
[2016-09-12] VITALS (12 sets, daily range): BP systolic 49–159; BP diastolic 47–89; PULSE 52–84; RESP 18–20; TEMP 97.7–98.9; O2SAT 96–100
[2016-09-12] MEDS: HEPARIN SODIUM - SQ 10,000 UNITS/ML VIAL SQ SCH ×4 (02:06→23:53)
[2016-09-12] MEDS: metroNIDAZOLE 500 MG INJ 100 ML IV SCH ×5 (02:06→23:53)
[2016-09-12] MEDS: traMADol HCL 50 MG TAB PO PRN ×2 (02:09→23:53)
[2016-09-12] MEDS: PIPERACIL-TAZO 3.375 GM PREMIX 50 ML IV SCH ×4 (03:14→21:20)
[2016-09-12] MEDS: SODIUM CHLOR 0.9% 1000 ML INJ 1,000 ML IV SCH ×2 (06:16→17:18)
[2016-09-12 06:45] LABS: PROTHROMBIN TIME - PATIENT 11.2 SEC (9.8-11.6)
[2016-09-12 07:15] LABS: BICARBONATE 22.6 MEQ/L (21.0-32.0); INDIRECT BILIRUBIN 0.3 MG/DL (0.0-0.8); TOTAL BILIRUBIN ADULT 0.8 MG/DL (0.2-1.0)
[2016-09-12 07:20] LABS: POTASSIUM 2.6 MEQ/L (3.5-5.1)
[2016-09-12] MEDS ORDERED: POTASSIUM CHLOR 20 MEQ PREMIX 100 ML IV ONE (09:00)
[2016-09-12] MEDS: amLODIPine BESYLATE 5 MG TAB PO SCH (09:00)
[2016-09-12] MEDS: LISINOPRIL 5 MG TAB PO SCH (09:00)
[2016-09-12] MEDS: LACTULOSE SYRUP 20 GM/30 ML CUP PO SCH ×2 (09:00→21:00)
[2016-09-12] MEDS: TRIAMCINOLONE ACETONIDE 0.1% CREAM 15 GM TOPICAL SCH ×2 (09:00→21:00)
[2016-09-12] MEDS ORDERED: POTASSIUM CHLORIDE 20 MEQ CONTROLLED RELEASE TAB PO ONE (10:00)
--- NOTE | 2016-09-12 10:44 | HHI.PR ---
Subjective Remarks Patient awake alert but he refused to speak "I don't feel like talk wants to come out" When I asked him if he designated someone to decide on his behalf (healthcare surrogate) he said he doesn't want to talk Objective Vitals Vital Signs Date Time Temp Pulse Resp B/P Pulse Ox O2 Delivery O2 Flow Rate FiO2 09/12/16 06:00 72 09/12/16 05:00 74 09/12/16 04:00 98.8 65 20 102/53 98 09/12/16 04:00 78 09/12/16 03:00 72 09/12/16 03:00 20 09/12/16 02:00 72 09/12/16 01:00 69 09/12/16 00:00 69 09/12/16 00:00 98.7 52 20 105/47 99 09/11/16 22:00 66 09/11/16 21:00 74 09/11/16 20:00 65 09/11/16 20:00 98.6 80 20 148/75 98 09/11/16 19:00 68 09/11/16 18:00 78 09/11/16 17:45 72 09/11/16 16:34 72 09/11/16 16:00 98.4 79 16 114/58 100 09/11/16 15:00 75 09/11/16 14:33 98.2 79 16 128/58 100 09/11/16 14:00 72 09/11/16 13:00 75 09/11/16 12:00 72 09/11/16 11:00 79 I/O 09/11/16 09/11/16 09/11/16 09/12/16 09/12/16 09/12/16 07:00 15:00 23:00 07:00 15:00 23:00 Intake Total 240 ml 2262 ml 800 ml Output Total 478 ml 875 ml 240 ml Balance -238 ml 1387 ml 560 ml Intake Oral 240 ml 825 ml 0 ml IV Total 1437 ml 800 ml Output Urine Total 475 ml 875 ml 240 ml Stool Total 3 ml Emesis 0 ml # Bowel Movements 5 3 Result Diagram: 09/11/16 0451 09/12/16 0505 Objective Remarks - GENERAL: Frail elderly 89 years old patient who somnolent CARDIOVASCULAR: Regular rate and rhythm without murmurs, gallops, or rubs. RESPIRATORY: Fair air entry bilaterally. No wheezes, rales, or rhonchi. GASTROINTESTINAL: Abdomen soft, non-tender, nondistended. Normal active bowel sounds MUSCULOSKELETAL: Extremities without clubbing, cyanosis, or edema. NEURO: Somnolent. Moves all ext x4 A/P Problem List: (1) UTI (urinary tract infection) due to urinary indwelling Willis catheter ICD Code: T83.511A Status: Acute (2) Elevated LFTs ICD Code: R94.5 Status: Acute (3) Hematuria ICD Code: R31.9 Status: Acute (4) C. difficile diarrhea ICD Code: A04.7 Status: Acute Assessment and Plan 09/11/16: Hypokalemia today K3.2, replace, diarrhea ongoing, continue Vancopo and Flagyl iv, no more hematuria, hemoglobin stable around 13 Increase AST and ALK phosphorus, will check a CHAD, ASMA, will consult GI 09/12/16: BMP continue to increase we'll check 2-D echo, hypokalemia replaced, per the nurse family wants DNR however patient refused to discuss, we'll consult palliative care Continue iv Flagyl and by mouth vancomycin, continue hydration cautiously and replacing electrolytes Addendum: Received call from palliative care nurse, patient and family decided and changing CODE STATUS to DNR and consulting hospice A/P Gross hematuria with Willis malfunction>> resolved Complicated UTI in patient with indwelling catheter C. difficile diarrhea JIMMIE creatinine 1.43 Hyperkalemia 5.5 resolved Leukocytosis with left shift Lactic acidosis resolved Transaminitis with increased alkaline phosphatase and bilirubin>> check CHAD, ASMA, consult GI Hyperammonemia>> resolved ammonia 25 DVT prophylaxis hold heparin due to gross hematuria, consider resuming when stable Plan: Patient runs 8 beats of V. tach as per the nurse, his magnesium is 1.8 will give 2 g magnesium sulfate and monitor BMP Will give gentle iv fluid 75 ns due to diarrhea We will hold on lactulose for now due to the diarrhea, continue monitoring ammonia Willis catheter inserted Follow urine culture On Zosyn for UTI, DC if culture negative Flagyl iv and by mouth vancomycin for third relapse multiple episode C. difficile SCD for DVT prophylaxis hold heparin for now due to hematuria Problem Qualifiers (1) UTI (urinary tract infection) due to urinary indwelling Willis catheter: Qualified Code: T83.511A - Urinary tract infection associated with indwelling urethral catheter, initial encounter Jordan Garcia MD Sep 12, 2016 10:44
[2016-09-12] MEDS ORDERED: SINCALIDE 5 MCG/5 ML VIAL IV ONE (10:52)
--- NOTE | 2016-09-12 12:08 | RADRPT ---
EXAM DATE/TIME: 09/12/2016 09:52 [facility] COMPARISON: No previous studies available for comparison. INDICATIONS : Elevated liver enzymes. DOSE: 4.1 mCi Tc99m Mebrofenin IV MEDICATION: 1.4 mcg Cholecystokinin IV; No symptomatic response. Cholecystokinin was administered by slow infusion over 8 minutes beginning at 60 minutes. MEDICAL HISTORY : Gastroesophageal reflux disease. Hypercholesterolemia. Diabetes mellitus type 2. Hypertension. SURGICAL HISTORY : Pacemaker. ENCOUNTER: Initial ACUITY: 2 days PAIN SCALE: 0/10 LOCATION: Right upper quadrant TECHNIQUE: Following the intravenous administration of radiotracer, dynamic sequential image were performed with continuous acquisition. Time-activity curves were generated. FINDINGS: HEPATIIC KINETICS: There is prompt uptake of radiotracer in the liver. No focal defects are seen. There is normal rate of washout from the hepatic parenchyma. BILIARY CLEARANCE: Activity is first seen in the extrahepatic biliary system at 20 minutes. There is normal excretion i nto the small bowel. GALLBLADDER: Activity is first seen in the gallbladder at 20 minutes. POST CHOLECYSTOKININ: After Cholecystokinin administration, there is prompt emptying of the gallbladder with a 40 % ejectio n fraction. Common bile duct kinetics are normal and there is no evidence of biliary obstruction. BILIARY ENTERIC REFLUX: Biliary gastric reflux is present following CCK which is a nonspecific finding CLINICAL: The patient was asymptomatic after Cholecystokinin administration. CONCLUSION: No evidence of acute cholecystitis Bert Kitchen MD on September 12, 2016 at 12:04 Board Certified Radiologist. This report was verified electronically.
[2016-09-12 12:29] LABS: AUTOMATED NEUTROPHIL # 11.8 TH/MM3 (1.8-7.7); BASOPHIL # 0.1 TH/MM3 (0-0.2); BASOPHIL % 0.5 % (0.0-2.0); EOSINOPHIL # 0.2 TH/MM3 (0-0.4); EOSINOPHIL % 1.7 % (0.0-4.0); HEMATOCRIT 35.7 % (39.0-51.0); LYMPH % 5.6 % (9.0-44.0); LYMPHOCYTE # 0.8 TH/MM3 (1.0-4.8); MEAN CELL VOLUME 89.1 FL (80.0-100.0); MEAN CORPUSCULAR HEMOGLOBIN 30.5 PG (27.0-34.0); MEAN CORPUSCULAR HGB CONC 34.3 % (32.0-36.0); MONO % 6.4 % (0.0-8.0); NEUT % 85.8 % (16.0-70.0); PLATELET COUNT 244 TH/MM3 (150-450); WHITE BLOOD COUNT 13.8 TH/MM3 (4.0-11.0)
[2016-09-12 12:31] LABS: HEMO FLAGS AUTO DIFF
[2016-09-12] MEDS: LACTOBACILLUS ACIDOPHILUS TAB PO SCH ×3 (12:51→17:17)
[2016-09-12] MEDS: PANTOPRAZOLE SOD 20 MG DELAYED RELEASE TAB PO SCH (12:51)
[2016-09-12] MEDS: VANCOMYCIN 500 MG VIAL (FOR ORAL USE ONLY) PO SCH ×4 (12:52→21:15)
[2016-09-12] MEDS: SODIUM CHLORIDE 0.9% FLUSH 5 ML FLUSH FLUSH SCH ×2 (12:56→21:04)
[2016-09-12] MEDS: PROPRANOLOL HCL 20 MG TAB PO SCH ×2 (12:56→21:15)
[2016-09-12] MEDS: PRIMIDONE 50 MG TAB PO SCH ×2 (13:08→21:05)
[2016-09-12] MEDS: VENLAFAXINE HCL XR 75 MG CAP PO SCH (13:08)
[2016-09-12 14:30] LABS: BANDS 26 % (0-6); EOSINOPHILS 1 % (0-4); METAMYELOCYTES 1 % (0-1); NEUTROPHIL # MANUAL DIFF 12.8 TH/MM3 (1.8-7.7); POLYS (SEG NEUTROPHILS) 66 % (16-70); WBC DIFF SAMPLE 100
[2016-09-12 14:31] LABS: PLATELET ESTIMATE SMEAR NORMAL (NORMAL); PLATELET MORPHOLOGY NORMAL (NORMAL); SCAN/DIFF FINAL DIFF MANUAL
--- NOTE | 2016-09-12 14:53 | PD.CONS ---
Consult Service Palliative Care Consult Requested By Dr. Jose MD. [facility] Reason for Consultation a. To assist with evaluation and management of symptoms including: Debility. b. To assist medical decision maker(s) with: better understanding of current medical conditions; weighing benefits/burdens of medical treatment options; making medical treatment decisions. . HPI History of Present Illness Mr. Norman is an 89-year-old male who history of hypertension, hyperlipidemia, recent C. difficile infection, urinary retention with chronic indwelling catheter and BPH. Patient presented to the ED on 09/09/16 via EMS from custodial [facility] were reports of lethargy, gross hematuria and pain at Willis catheter site. Laboratory showing leukocytosis with WBC 17.8, acute kidney injury with BUN/creatinine 41/1.43, hyperkalemia with potassium of 5.2 and elevated liver enzymes. Lactic acid 2.7. Positive UA with protein, trace ketones, large occult blood in leukocyte. Patient was started on antibiotic therapy. Gallbladder ultrasound showing multiple gallstones, no evidence of cholecystitis and no ductal stone or ductal dilatation. Head CT showing no acute process, mild ventriculomegaly and chronic white matter changes. Chest x- ray negative for acute process. Abdomen and pelvis CT show Willis catheter balloon in the urethra, small gallstones, bilateral renal cysts. Patient was admitted secondary for management of sepsis secondary to urinary tract infection and acute kidney injury. Willis catheter was exchange and hematuria resolved. GI -Dr. Akers consulted on 09/11/16 for evaluation of transaminitis. HIDA scan and 09/12/16 negative for acute cholecystitis. LFTs trending down, today AST 14 , ALT 75, alkaline phosphatase 367. Total bilirubin 0.8. Laboratory today to include WBC 13.8, Hgb 12.2, platelet count 244. Sodium 136, potassium 2.6, BUN/ creatinine 32/1.30. BNP 394. Albumin 1.7. As per nurse's report, family requesting DNR status, however, patient refusing to discuss with attending. Palliative care has been consulted for further clarifications of goals of care. Reviewed prior hospitalizations. Recent hospitalization from 08/17/16 to secondary to UTI sepsis, syncope, C. difficile infection. Patient was discharged to [facility]. Previous hospitalization from 08/06/16 to 08/13/16 secondary to adjustment disorder. During that hospitalization, patient was placed on Lopez act secondary to severe depression. Psychiatry was consulted, diagnosed with major depressive episode/ single event Patient was found to have good insight and judgment upon discharge home. Multiple emergency visits for a total of 17 between February 2016 to June 2016, multiple etiologies. Patient was seen in his room, sitting up in his bed in no acute distress. Lunch tray in front of him, it appears that he has only taken a few bites of his sandwich. Patient opening eyes to voice. Very sleepy, lethargic. Patient able to tell me his name and age, confused place and situation. He was unable to tell me how many children he has ordered the reason why he presented to the hospital. Patient denies any shortness of breath, nausea/vomiting, or abdominal pain. Reports very poor appetite. Reports feeling "bad" but was unable to elaborate on details. Family at bedside. Telephone call to patient's Lauren. She tells me that patient has shown worsening physical and cognitive status since a year ago. Requiring multiple ED visits and Dr. visits for various reasons. Reporting progressive cognitive and functional decline. Lately requiring assistance with ADLs, very poor appetite, and recent hospitalizations since the beginning of the year. tells me that patient has been showing signs of depression for the past 6 months. He was hospitalized secondary to acute depression/suicidal ideation at the beginning of August. tells me that this has brought a lot of stress to her life and has lost over 30 pounds while caring for patient. is no longer able to care for patient at home. He was discharge to custodial facility during last hospitalization on 08/25/16. Reviewed events leading to his hospitalization, current clinical condition and management. Reviewed likely trajectory of illness to include progressive decline, additional complications and . tells me that patient's quality of life is very important to her and that she feels that he has no quality of life secondary to his worsening clinical status and multiple hospitalizations. Family at this time is electing for comfort directed care given patient's stated wishes. As per , patient has been very clear in not wanting any invasive procedures, surgical interventions, aggressive treatment. Family electing no code. DNR/ DNI. Introduce hospice philosophy and benefits given patient's stated wishes. 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 reports that hospice has been recommended previously. reports that family is ready for hospice services again given patient's worsening clinical condition and known wishes. in agreement with hospice referral. . Function/Cognitive Trajectory Patient residing with prior to August 2016. Requiring moderate assistance with ADLs. Using walker and wheelchair. He was discharged to [facility] after last admission on 08/25/16. Cognitive decline reported. . Review of Systems ROS Limitations: Clinical Condition (lethargic), Altered Mental Status Constitutional: COMPLAINS OF: Fatigue, Change in appetite, DENIES: Dizziness Endocrine: DENIES: Heat/cold intolerance Eyes: DENIES: Eye pain Ears, nose, mouth, throat: COMPLAINS OF: Hearing loss (hard of hearing) Respiratory: DENIES: Wheezing, Sputum production, Shortness of breath Cardiovascular: COMPLAINS OF: Lower Extremity Edema, DENIES: Chest pain, Dyspnea on Exertion Gastrointestinal: COMPLAINS OF: Constipation, DENIES: Abdominal pain, Nausea, Vomiting Musculoskeletal: DENIES: Back pain, Decreased range of motion Integumentary: DENIES: Abnormal pigmentation Hematologic/Lymphatics: DENIES: Bruising Immunologic/Allergic: DENIES: Eczema Neurologic: COMPLAINS OF: Abnormal gait, Poor Balance Psychiatric: COMPLAINS OF: Anxiety, Depression Other ROS: Limited ROS secondary to clinical condition, lethargy. ROS obtained from medical records, patient and clinical observation. Past Family Social History Coded Allergies: No Known Allergies (Unverified , 09/09/16) Past Medical History Hypertension BPH Hyperlipidemia Frequent UTIs S/p PPM for syncopal episodes GERD recent C diff infection History of depression Hard of hearing . Past Surgical History Bilateral cataracts Pacemaker placement TURP . Reported Medications Effexor XR 24 HR (Venlafaxine HCl) 75 Mg Cap 75 Mg PO DAILY 0 Days Norvasc (Amlodipine Besylate) 2.5 Mg Tab 2.5 Mg PO DAILY Propranolol (Propranolol HCl) 40 Mg Tab 40 Mg PO BID 30 Days Cephalexin 250 Mg Cap 250 Mg PO QID 10 Days Captopril 25 Mg Tab 75 Mg PO BIDAC 30 Days Flagyl (Metronidazole) 500 Mg Tab 500 Mg PO Q8HR 14 Days . Current Medications Medications (Trade) Dose Ordered Sig/Sarita Route Start Time Stop Time Status Last Admin (NS Flush) 2 ml UNSCH PRN FLUSH 09/10/16 00:30 (NS Flush) 2 ml BID FLUSH 09/10/16 09:00 09/12/16 12:56 (Narcan Inj) 0.4 mg UNSCH PRN IV 09/10/16 00:30 (Norvasc) 5 mg DAILY PO 09/10/16 09:00 09/11/16 09:08 (Lactinex) 1 tab TID PO 09/10/16 09:00 09/12/16 12:51 (Prinivil) 5 mg DAILY PO 09/10/16 09:00 09/11/16 09:08 (Protonix) 20 mg DAILY PO 09/10/16 09:00 09/12/16 12:51 (Mysoline) 50 mg BID PO 09/10/16 09:00 09/12/16 13:08 (Inderal) 20 mg Q12HR PO 09/10/16 09:00 09/12/16 12:56 (Ultram) 50 mg Q6H PRN PO 09/10/16 01:45 (Ultram) 100 mg Q6H PRN PO 09/10/16 01:45 09/12/16 02:09 (Aristocort 0.1% Cream) 1 applic BID TOPICAL 09/10/16 09:00 09/11/16 21:12 (Effexor Xr) 150 mg DAILY PO 09/10/16 09:00 09/12/16 13:08 Vancomycin HCl 125 mg 125 mg QID PO 09/10/16 09:00 09/12/16 12:52 (Flagyl 500 Mg Inj) 100 ml @ 100 mls/hr Q6H IV 09/10/16 07:00 09/12/16 13:01 Lactulose 30 ml 30 ml BID PO 09/10/16 14:00 (NS 1000 ml Inj) 1,000 ml @ 75 mls/hr [id number] IV 09/10/16 14:00 09/12/16 06:16 Heparin Sodium (Porcine) 5000 units 5,000 units Q8H SQ 09/10/16 17:00 09/12/16 12:55 (Zosyn 3.375 Gm Premix) 50 ml @ 100 mls/hr Q6H IV 09/11/16 09:00 09/12/16 13:19 Family History Patient unable to provide secondary to clinical condition. . Substance Use Tobacco: Denies. Alcohol: Denies. Prescription med abuse: Denies. Illicits: Denies. . Psychosocial History Patient is . Residing with independently prior to August,. Currently residing at [facility]. One child, Joyce who lives locally. Spiritual/Cultural Factors [employer]-Ism queenie. . Living Will: Copy in medical record Health Care Surrogate: Copy in medical record Durable Power of [place] Layer: Copy in medical record Date completed: 08/29/2016. . Health Care Surrogate(s): Lauren Norman. Alternate HCS daughter Emily Hancock. . Documented care wishes: Living will completed. Patient elected not to have less sustaining treatments if he is unconscious, and a coma or in persistent vegetative state and there is a little no change in recovery. No left sustaining treatments in the event of severe brain damage, or if he were to have permanent condition that makes him completed dependent on others for activities of daily living. No life- sustaining treatments in the event of being confined to bed or needs a breathing machine. No life-sustaining treatment in the event her severe pain or symptoms that cannot be relieved. No life-sustaining treatment in the event of life limiting condition. Patient elected for the above preferences to be followed strictly even if the person who is making decisions for him thinks that is not on his best interest. . Family/friends goals: No code. DNR/DNI. Transition patient to comfort directed care with hospice services given patient's progressive clinical and cognitive decline and multiple hospitalizations. . Ethical and Legal Issues No ethical legal issues have been identified. . Physical Exam Vital Signs Date Time Temp Pulse Resp B/P Pulse Ox O2 Delivery O2 Flow Rate FiO2 09/12/16 06:00 72 09/12/16 05:00 74 09/12/16 04:00 98.8 65 20 102/53 98 09/12/16 04:00 78 09/12/16 03:00 72 09/12/16 03:00 20 09/12/16 02:00 72 09/12/16 01:00 69 09/12/16 00:00 69 09/12/16 00:00 98.7 52 20 105/47 99 09/11/16 22:00 66 09/11/16 21:00 74 09/11/16 20:00 65 09/11/16 20:00 98.6 80 20 148/75 98 09/11/16 19:00 68 09/11/16 18:00 78 09/11/16 17:45 72 09/11/16 16:34 72 09/11/16 16:00 98.4 79 16 114/58 100 09/11/16 15:00 75 09/11/16 14:33 98.2 79 16 128/58 100 09/11/16 09/12/16 19:00 07:00 Intake Total 1525 ml 1537 ml Output Total 625 ml 490 ml Balance 900 ml 1047 ml Intake Oral 625 ml 200 ml IV Total 900 ml 1337 ml Output Urine Total 625 ml 490 ml Emesis 0 ml # Bowel Movements 2 6 Exam CONSTITUTIONAL/GENERAL: This is an elderly man in no apparent distress. Verbal but not always able to communicate needs secondary to confusion, lethargic. TUBES/LINES/DRAINS: PIV's, SCDs, Willis catheter with moderate amount of clear yellow urine. SKIN: No jaundice or lesions. Scatter ecchymoses on upper extremities. No wounds seen anteriorly. Skin temperature appropriate. Not diaphoretic. HEAD: Atraumatic. Normocephalic. EYES: Pupils equal and round and reactive. No scleral icterus. No injection or drainage. ENT: Hard of hearing. Nose without bleeding or purulent drainage. Moist oral mucosa. NECK: Trachea midline. Supple. CARDIOVASCULAR: Irregular rate and rhythm without murmurs, gallops, or rubs. Peripheral pulses symmetric. Trace edema to bilateral lower extremities. +1 edema to upper extremities right > left. RESPIRATORY/CHEST: Symmetric, unlabored respirations. Clear, diminished to auscultation. No wheezes, rales, or rhonchi. GASTROINTESTINAL: Abdomen soft, non-tender, nondistended. No guarding. Bowel sounds present. GENITOURINARY: Without palpable bladder distension. Willis catheter in place with moderate amount of clear yellow urine. No hematuria noted. MUSCULOSKELETAL: Muscle wasting noted. No mottling or clubbing. NEUROLOGICAL: Lethargic, opening eyes to voice. Verbal but not always able to communicate needs secondary to confusion. Alert to self, disoriented as to place and situation. Moves all extremities. PSYCHIATRIC: Limited exam secondary to clinical condition, lethargic. Appears calm. . Diagnostic Tests Laboratory Laboratory Tests Test 09/09/16 09/09/16 09/09/16 09/10/16 19:10 21:15 22:55 13:53 Prothrombin Time 10.7 SEC (9.8-11.6) Prothromb Time International 1.0 RATIO Ratio Activated Partial 28.5 SEC Thromboplast Time (24.3-30.1) Sodium Level 129 MEQ/L 135 MEQ/L (136-145) (136-145) Potassium Level 5.2 MEQ/L 3.6 MEQ/L (3.5-5.1) (3.5-5.1) Chloride Level 94 MEQ/L 100 MEQ/L (98-107) (98-107) Carbon Dioxide Level 22.2 MEQ/L 22.1 MEQ/L (21.0-32.0) (21.0-32.0) Anion Gap 13 MEQ/L (5-15) 13 MEQ/L (5-15) Blood Urea Nitrogen 41 MG/DL (7-18) 37 MG/DL (7-18) Creatinine 1.43 MG/DL 1.31 MG/DL (0.60-1.30) (0.60-1.30) Estimat Glomerular Filtration 47 ML/MIN (>89) 52 ML/MIN (>89) Rate Random Glucose 248 MG/DL 168 MG/DL (74-106) (74-106) Lactic Acid Level 2.7 mmol/L 1.5 mmol/L (0.4-2.0) (0.4-2.0) Calcium Level 8.9 MG/DL 8.6 MG/DL (8.5-10.1) (8.5-10.1) Total Bilirubin 1.0 MG/DL 1.5 MG/DL (0.2-1.0) (0.2-1.0) Aspartate Amino Transf 104 U/L (15-37) 34 U/L (15-37) (AST/SGOT) Alanine Aminotransferase 256 U/L (12-78) 166 U/L (12-78) (ALT/SGPT) Alkaline Phosphatase 910 U/L 610 U/L (45-117) (45-117) Ammonia 35 MCMOL/L (11-32) Total Creatine Kinase 103 U/L (39-308) Troponin I LESS THAN 0.02 NG/ML (0.02-0.05) Total Protein 6.7 GM/DL 5.4 GM/DL (6.4-8.2) (6.4-8.2) Albumin 2.6 GM/DL 2.2 GM/DL (3.4-5.0) (3.4-5.0) White Blood Count 17.8 TH/MM3 15.0 TH/MM3 (4.0-11.0) (4.0-11.0) Red Blood Count 4.78 MIL/MM3 4.49 MIL/MM3 (4.50-5.90) (4.50-5.90) Hemoglobin 14.8 GM/DL 13.8 GM/DL (13.0-17.0) (13.0-17.0) Hematocrit 41.8 % 40.5 % (39.0-51.0) (39.0-51.0) Mean Corpuscular Volume 87.6 FL 90.1 FL (80.0-100.0) (80.0-100.0) Mean Corpuscular Hemoglobin 31.0 PG 30.8 PG (27.0-34.0) (27.0-34.0) Mean Corpuscular Hemoglobin 35.4 % 34.2 % Concent (32.0-36.0) (32.0-36.0) Red Cell Distribution Width 15.3 % 14.9 % (11.6-17.2) (11.6-17.2) Platelet Count 252 TH/MM3 222 TH/MM3 (150-450) (150-450) Mean Platelet Volume 8.0 FL 7.6 FL (7.0-11.0) (7.0-11.0) Neutrophils (%) (Auto) 86.6 % 82.3 % (16.0-70.0) (16.0-70.0) Lymphocytes (%) (Auto) 3.3 % 3.8 % (9.0-44.0) (9.0-44.0) Monocytes (%) (Auto) 9.6 % (0.0-8.0) 13.0 % (0.0-8.0) Eosinophils (%) (Auto) 0.3 % (0.0-4.0) 0.5 % (0.0-4.0) Basophils (%) (Auto) 0.2 % (0.0-2.0) 0.4 % (0.0-2.0) Neutrophils # (Auto) 15.4 TH/MM3 12.4 TH/MM3 (1.8-7.7) (1.8-7.7) Lymphocytes # (Auto) 0.6 TH/MM3 0.6 TH/MM3 (1.0-4.8) (1.0-4.8) Monocytes # (Auto) 1.7 TH/MM3 1.9 TH/MM3 (0-0.9) (0-0.9) Eosinophils # (Auto) 0.0 TH/MM3 0.1 TH/MM3 (0-0.4) (0-0.4) Basophils # (Auto) 0.0 TH/MM3 0.1 TH/MM3 (0-0.2) (0-0.2) CBC Comment DIFF FINAL DIFF FINAL Differential Comment Urine Color DARK-BROWN (YELLW/STRAW) Urine Turbidity CLOUDY (CLEAR) Urine pH 5.0 (5.0-8.5) Urine Specific [place] 1.020 (1.002-1.035) Urine Protein 100 mg/dL (NEG-TRACE) Urine Glucose (UA) TRACE mg/dL (NEG) Urine Ketones TRACE mg/dL (NEG) Urine Occult Blood LARGE (NEG) Urine Nitrite NEG (NEG) Urine Bilirubin NEG (NEG) Urine Urobilinogen LESS THAN 2.0 MG/DL (LESS THAN 2.0) Urine Leukocyte Esterase LARGE (NEG) Urine RBC /hpf (0-3) Urine WBC /hpf (0-5) Urine WBC Clumps MANY (NONE) Urine Bacteria MOD /hpf (NONE) Urine Mucus FEW /lpf (OCC) Microscopic Urinalysis Comment CATH-CULTURE IND Stool C. difficile Toxin (PCR) POSITIVE (NEGATIVE) Stl C. difficile Toxin PRESUMPTIVE Epiderm 027 POSITIVE (NEGATIVE) Direct Bilirubin 1.0 MG/DL (0.0-0.2) Indirect Bilirubin 0.5 MG/DL (0.0-0.8) B-Type Natriuretic Peptide 239 PG/ML (0-100) Test 09/10/16 09/11/16 09/12/16 09/12/16 20:00 04:51 05:05 12:03 Sodium Level 129 MEQ/L 133 MEQ/L 136 MEQ/L (136-145) (136-145) (136-145) Potassium Level 3.5 MEQ/L 3.2 MEQ/L 2.6 MEQ/L (3.5-5.1) (3.5-5.1) (3.5-5.1) Chloride Level 96 MEQ/L 99 MEQ/L 102 MEQ/L (98-107) (98-107) (98-107) Carbon Dioxide Level 21.4 MEQ/L 22.8 MEQ/L 22.6 MEQ/L (21.0-32.0) (21.0-32.0) (21.0-32.0) Anion Gap 12 MEQ/L (5-15) 11 MEQ/L (5-15) 11 MEQ/L (5-15) Blood Urea Nitrogen 36 MG/DL (7-18) 33 MG/DL (7-18) 32 MG/DL (7-18) Creatinine 1.30 MG/DL 1.31 MG/DL 1.30 MG/DL (0.60-1.30) (0.60-1.30) (0.60-1.30) Estimat Glomerular Filtration 52 ML/MIN (>89) 52 ML/MIN (>89) 52 ML/MIN (>89) Rate Random Glucose 190 MG/DL 160 MG/DL 157 MG/DL (74-106) (74-106) (74-106) Calcium Level 8.2 MG/DL 8.5 MG/DL 8.3 MG/DL (8.5-10.1) (8.5-10.1) (8.5-10.1) Phosphorus Level 3.4 MG/DL (2.5-4.9) Magnesium Level 2.7 MG/DL 2.5 MG/DL (1.5-2.5) (1.5-2.5) White Blood Count 15.7 TH/MM3 13.8 TH/MM3 (4.0-11.0) (4.0-11.0) Red Blood Count 4.21 MIL/MM3 4.00 MIL/MM3 (4.50-5.90) (4.50-5.90) Hemoglobin 13.1 GM/DL 12.2 GM/DL (13.0-17.0) (13.0-17.0) Hematocrit 37.1 % 35.7 % (39.0-51.0) (39.0-51.0) Mean Corpuscular Volume 88.1 FL 89.1 FL (80.0-100.0) (80.0-100.0) Mean Corpuscular Hemoglobin 31.0 PG 30.5 PG (27.0-34.0) (27.0-34.0) Mean Corpuscular Hemoglobin 35.2 % 34.3 % Concent (32.0-36.0) (32.0-36.0) Red Cell Distribution Width 14.8 % 15.0 % (11.6-17.2) (11.6-17.2) Platelet Count 237 TH/MM3 244 TH/MM3 (150-450) (150-450) Mean Platelet Volume 7.9 FL 7.6 FL (7.0-11.0) (7.0-11.0) Neutrophils (%) (Auto) 84.4 % 85.8 % (16.0-70.0) (16.0-70.0) Lymphocytes (%) (Auto) 3.5 % 5.6 % (9.0-44.0) (9.0-44.0) Monocytes (%) (Auto) 11.2 % 6.4 % (0.0-8.0) (0.0-8.0) Eosinophils (%) (Auto) 0.5 % (0.0-4.0) 1.7 % (0.0-4.0) Basophils (%) (Auto) 0.4 % (0.0-2.0) 0.5 % (0.0-2.0) Neutrophils # (Auto) 13.2 TH/MM3 11.8 TH/MM3 (1.8-7.7) (1.8-7.7) Lymphocytes # (Auto) 0.6 TH/MM3 0.8 TH/MM3 (1.0-4.8) (1.0-4.8) Monocytes # (Auto) 1.8 TH/MM3 0.9 TH/MM3 (0-0.9) (0-0.9) Eosinophils # (Auto) 0.1 TH/MM3 0.2 TH/MM3 (0-0.4) (0-0.4) Basophils # (Auto) 0.1 TH/MM3 0.1 TH/MM3 (0-0.2) (0-0.2) CBC Comment DIFF FINAL AUTO DIFF Differential Comment Total Bilirubin 1.7 MG/DL 0.8 MG/DL (0.2-1.0) (0.2-1.0) Aspartate Amino Transf 27 U/L (15-37) 14 U/L (15-37) (AST/SGOT) Alanine Aminotransferase 124 U/L (12-78) 75 U/L (12-78) (ALT/SGPT) Alkaline Phosphatase 510 U/L 367 U/L (45-117) (45-117) Ammonia 25 MCMOL/L (11-32) B-Type Natriuretic Peptide 215 PG/ML 394 PG/ML (0-100) (0-100) Total Protein 5.0 GM/DL 4.5 GM/DL (6.4-8.2) (6.4-8.2) Albumin 2.0 GM/DL 1.7 GM/DL (3.4-5.0) (3.4-5.0) Prothrombin Time 11.2 SEC (9.8-11.6) Prothromb Time International 1.0 RATIO Ratio Direct Bilirubin 0.5 MG/DL (0.0-0.2) Indirect Bilirubin 0.3 MG/DL (0.0-0.8) Result Diagram: 09/12/16 1203 09/12/16 0505 Microbiology Microbiology Date/Time Procedure Status Source Growth 09/09/16 19:10 Urine Culture - Final Complete Urine Catheterized Urine Staphylococcus Epidermidis 09/09/16 20:42 Aerobic Blood Culture Received Blood Peripheral Pending 09/09/16 20:42 Anaerobic Blood Culture Received Blood Peripheral Pending 09/09/16 21:10 Aerobic Blood Culture - Preliminary Resulted Blood Peripheral NO GROWTH IN 3 DAYS 09/09/16 21:10 Anaerobic Blood Culture - Preliminary Resulted Blood Peripheral NO GROWTH IN 3 DAYS 09/09/16 21:15 Aerobic Blood Culture - Preliminary Resulted Blood Peripheral NO GROWTH IN 3 DAYS 09/09/16 21:15 Anaerobic Blood Culture - Preliminary Resulted Blood Peripheral NO GROWTH IN 3 DAYS Imaging Last Impressions Hepatobiliary Scan Nuclear Medicine 09/12/16 0000 Signed Impressions: Service Date/Time: Monday, September 12, 2016 09:52 - CONCLUSION: No evidence of acute cholecystitis Bert Kitchen MD Abdomen/Pelvis CT 09/09/[id number] Signed Impressions: Service Date/Time: Friday, September 09, 2016 20:58 - CONCLUSION: 1. Willis catheter balloon is inflated within the urethra. 2. Small gallstones. No inflammatory changes. No duct stone or ductal dilatation. 3. Bilateral renal cysts. Bassem Rob MD Head CT 09/09/[id number] Signed Impressions: Service Date/Time: Friday, September 09, 2016 18:35 - CONCLUSION: 1. Mild ventriculomegaly appears slightly worse in the interim. Clinical correlation for possible normal pressure hydrocephalus recommended. 2. Chronic white matter changes are again noted. 3. No bleed or other acute intercranial abnormality. Bassem Rob MD Chest X-Ray 09/09/161806 Signed Impressions: Service Date/Time: Friday, September 09, 2016 18:58 - CONCLUSION: No evidence of acute cardiopulmonary disease. Bassem Rob MD Gall Bladder Ultrasound 09/09/16 0000 Signed Impressions: Service Date/Time: Friday, September 09, 2016 21:36 - CONCLUSION: 1. Multiple subcentimeter gallstones present. No evidence of cholecystitis. No ductal stone or ductal dilatation. 2. Small echogenic right kidney with several cysts. Bassem Rob MD Patient/Family Conference Present at Family Conference: Lauren. Family Conference Time (mins): 45 Family Conference Location: Telephone Issues Discussed: * Palliative care role, purpose, approach * Additional medical, psychosocial, and spiritual history * Patients general health, functional status, and cognitive changes in the months leading up to the current hospitalization * Family understanding of the current medical problems * Family understanding of prognosis * Patients goals of care as best understood from advance directives and/or conversations and/or values * Current medical treatment options and benefits/burdens of those options * Likely scenarios comparing ongoing aggressive care with a transition to comfort measures only * Questions answered to the best of my ability * Palliative care contact information provided * Hospice philosophy and benefits . Assessment and Plan Disease Oriented Problem List: (1) Urinary tract infection (2) Sepsis (3) Elevated LFTs (4) Acute renal failure Symptom Scale: (1) Debility 0-10 Scale: Unable to quantify Comment: Factorial. Related to multiple lacunar comorbidities, recent hospitalization, and physical deconditioning. Pertinent Non-Medical Issues Psychosocial: . Spiritual: No scientologist affiliation. Legal: Living will completed. Ethical issues impacting care: No ethical issues identified. . Important Contacts Lauren Norman [phone]. Daughter Angelia Hancock -pending contact information. Prognosis Mr. Norman is an 89-year-old male who history of hypertension, hyperlipidemia, recent C. difficile infection, urinary retention with chronic indwelling catheter and BPH. Patient presented to the ED on 09/09/16 via EMS from custodial facility were reports of lethargy, gross hematuria and pain at Willis catheter site. Patient was admitted secondary for management of sepsis secondary to urinary tract infection and acute kidney injury. Willis catheter was exchange and hematuria resolved. Patient remains lethargic, with very poor appetite. Overall prognosis is poor for an improved quality of life given patient's age, multiple comorbidities, progressive functional decline and acute events. Patient at high risk for further complications, decline and . . Code Status: No Code Plan * CODE STATUS: No code. DNR/DNI. * MEDICAL DECISION-MAKING: Patient incapacitated secondary to clinical condition , confusion, lethargy. Living will completed, Healthcare surrogate decision maker is patient's . * GOALS OF CARE: No code. DNR/DNI. Family electing to transition patient to comfort directed-care with hospice services given patient's progressive clinical and cognitive decline, multiple hospitalizations, profound physical deconditioning, malnutrition/FTT and known wishes as stated in living will. * Hospice: Patient appears appropriate and eligible for hospice benefits - sepsis. Overall prognosis poor for an improved quality of life with life expectancy of days to weeks if illness runs its natural course. Family electing for comfortdirected care given patient's known wishes and worsening clinical condition. Current PPS 20%. Patient unable to care for patient at home, amenable to discharge to hospice care center for symptom management. * SYMPTOMS: == Debility, multifactorial. Likely to worsen. Secondary to progressive clinical decline, multiple hospitalizations, multiple comorbidities , malnutrition/failure to thrive. * Case discussed with Dr. Garcia. * Palliative care contact information has been provided to patient and family. * Predicative will continue to follow-up for further clarifications of goals of care as the clinical course evolves. . Time Spent Total Floor Time (mins): 80 (Total time to include review and summarization of available medical records to include multiple prior hospitalizations, physical exam, telephone conversation with , and case discussion with Dr. Garcia. ) >50% Counseling/Coord of Care: Yes Thank you for the opportunity to participate in the care of Mr. Norman. Attestation To help prompt me to consider important information that might be impacting today's encounter and assessment, information from prior notes written by myself or my colleagues may have been "brought forward" into today's note. My signature on this note, however, is an attestation that I personally performed the exam, history, and/or decision-making noted today, and, unless otherwise indicated, the interactions with patient, family, and staff as well as the review of records all occurred today. I also attest that the listed assessment and stated plan reflect my best clinical judgment today based on the combination of historical information, prior notes, and today's exam/ interactions. When time spent is documented, it refers only to time spent today by the signer, or if indicated, combined time spent today by collaborating physician/nurse practitioner. Sandra Wade Sep 12, 2016 14:53
[2016-09-13] VITALS: BP 153/89; PULSE 67; RESP 18; TEMP 98; O2SAT 97
[2016-09-13 04:00] VITALS: BP 112/60; PULSE 63; RESP 18; TEMP 98.4; O2SAT 98
[2016-09-13] MEDS: PIPERACIL-TAZO 3.375 GM PREMIX 50 ML IV SCH ×3 (04:14→12:55)
[2016-09-13 04:51] LABS: AUTOMATED NEUTROPHIL # 10.1 TH/MM3 (1.8-7.7); BASOPHIL % 0.2 % (0.0-2.0); EOSINOPHIL # 0.3 TH/MM3 (0-0.4); EOSINOPHIL % 2.6 % (0.0-4.0); HEMATOCRIT 35.8 % (39.0-51.0); LYMPH % 7.9 % (9.0-44.0); MEAN CELL VOLUME 88.2 FL (80.0-100.0); MEAN CORPUSCULAR HEMOGLOBIN 30.5 PG (27.0-34.0); MEAN CORPUSCULAR HGB CONC 34.6 % (32.0-36.0); MONO % 6.9 % (0.0-8.0); NEUT % 82.4 % (16.0-70.0); PLATELET COUNT 217 TH/MM3 (150-450); RED BLOOD COUNT 4.06 MIL/MM3 (4.50-5.90); RED CELL DISTRIBUTION WIDTH 14.4 % (11.6-17.2); WHITE BLOOD COUNT 12.2 TH/MM3 (4.0-11.0)
[2016-09-13 04:52] LABS: HEMO FLAGS AUTO DIFF
[2016-09-13] MEDS: metroNIDAZOLE 500 MG INJ 100 ML IV SCH ×3 (05:34→18:10)
[2016-09-13 07:24] VITALS: PULSE 63
[2016-09-13] MEDS: SODIUM CHLOR 0.9% 1000 ML INJ 1,000 ML IV SCH (08:00)
[2016-09-13] MEDS: LACTOBACILLUS ACIDOPHILUS TAB PO SCH ×3 (08:23→18:00)
[2016-09-13] MEDS: PROPRANOLOL HCL 20 MG TAB PO SCH (08:24)
[2016-09-13] MEDS: VANCOMYCIN 500 MG VIAL (FOR ORAL USE ONLY) PO SCH ×3 (08:24→18:00)
[2016-09-13] MEDS: PANTOPRAZOLE SOD 20 MG DELAYED RELEASE TAB PO SCH (08:24)
[2016-09-13] MEDS: LISINOPRIL 5 MG TAB PO SCH (08:24)
[2016-09-13] MEDS: PRIMIDONE 50 MG TAB PO SCH (08:24)
[2016-09-13] MEDS: amLODIPine BESYLATE 5 MG TAB PO SCH (08:24)
[2016-09-13] MEDS: HEPARIN SODIUM - SQ 10,000 UNITS/ML VIAL SQ SCH ×2 (08:24→17:00)
[2016-09-13] MEDS: SODIUM CHLORIDE 0.9% FLUSH 5 ML FLUSH FLUSH SCH (08:25)
[2016-09-13] MEDS: LACTULOSE SYRUP 20 GM/30 ML CUP PO SCH (08:29)
[2016-09-13 08:32] VITALS: BP 147/72; PULSE 61; RESP 16; TEMP 97.2; O2SAT 98
--- NOTE | 2016-09-13 08:41 | HHI.PR ---
Subjective Remarks Patient laying in bed nurse at the bedside, he is awake he refused to talk Palliative care on the case patient switched her DNR status yesterday with a auspice consult Per the nurse he had only 2 bowel movements last night, he is afebrile Objective Vitals Vital Signs Date Time Temp Pulse Resp B/P Pulse Ox O2 Delivery O2 Flow Rate FiO2 09/13/16 08:32 Room Air 09/13/16 08:32 97.2 61 16 147/72 98 09/13/16 07:24 63 09/13/16 04:00 Room Air 09/13/16 04:00 98.4 63 18 112/60 98 09/13/16 00:00 67 09/13/16 00:00 Room Air 09/13/16 00:00 98.0 67 18 153/89 97 09/12/16 20:00 68 09/12/16 20:00 98.2 68 20 159/89 99 09/12/16 15:00 97.7 62 18 108/61 98 09/12/16 11:00 98.9 73 18 154/69 100 I/O 09/12/16 09/12/16 09/12/16 09/13/16 09/13/16 09/13/16 07:00 15:00 23:00 07:00 15:00 23:00 Intake Total 800 ml 1260 ml 1380 ml Output Total 240 ml 750 ml 800 ml Balance 560 ml 510 ml 580 ml Intake Oral 0 ml 240 ml 480 ml IV Total 800 ml 1020 ml 900 ml Output Urine Total 240 ml 750 ml 800 ml Emesis 0 ml 0 ml # Bowel Movements 3 5 2 Result Diagram: 09/13/16 0417 09/12/16 0505 Objective Remarks - GENERAL: Frail elderly 89 years old patient in no acute distress CARDIOVASCULAR: Regular rate and rhythm without murmurs, gallops, or rubs. RESPIRATORY: Fair air entry bilaterally. No wheezes, rales, or rhonchi. GASTROINTESTINAL: Abdomen soft, non-tender, nondistended. Normal active bowel sounds MUSCULOSKELETAL: Extremities without clubbing, cyanosis, or edema. NEURO: Awake alert but refused to talk Moves all ext x4 A/P Problem List: (1) UTI (urinary tract infection) due to urinary indwelling Willis catheter ICD Code: T83.511A Status: Acute (2) Elevated LFTs ICD Code: R94.5 Status: Acute (3) Hematuria ICD Code: R31.9 Status: Acute (4) C. difficile diarrhea ICD Code: A04.7 Status: Acute Assessment and Plan 09/11/16: Hypokalemia today K3.2, replace, diarrhea ongoing, continue Vancopo and Flagyl iv, no more hematuria, hemoglobin stable around 13 Increase AST and ALK phosphorus, will check a CHAD, ASMA, will consult GI 09/12/16: BMP continue to increase we'll check 2-D echo, hypokalemia replaced, per the nurse family wants DNR however patient refused to discuss, we'll consult palliative care Continue iv Flagyl and by mouth vancomycin, continue hydration cautiously and replacing electrolytes Addendum: Received call from palliative care nurse, patient and family decided and changing CODE STATUS to DNR and consulting hospice 09/13/16: 2 bowel movement last night, afebrile, awaiting hospice consult today, appreciate palliative care consult. Hypokalemia replacepo A/P Gross hematuria with Willis malfunction>> resolved Complicated UTI in patient with indwelling catheter C. difficile diarrhea JIMMIE creatinine 1.43 Hyperkalemia 5.5 resolved Leukocytosis with left shift Lactic acidosis resolved Transaminitis with increased alkaline phosphatase and bilirubin>> check CHAD, ASMA, consult GI Hyperammonemia>> resolved ammonia 25 DVT prophylaxis hold heparin due to gross hematuria, consider resuming when stable Plan: Patient runs 8 beats of V. tach as per the nurse, his magnesium is 1.8 will give 2 g magnesium sulfate and monitor BMP Will give gentle iv fluid 75 ns due to diarrhea We will hold on lactulose for now due to the diarrhea, continue monitoring ammonia Willis catheter inserted Follow urine culture On Zosyn for UTI, DC if culture negative Flagyl iv and by mouth vancomycin for third relapse multiple episode C. difficile SCD for DVT prophylaxis hold heparin for now due to hematuria Discharge Planning Possibly today with hospice service Problem Qualifiers (1) UTI (urinary tract infection) due to urinary indwelling Willis catheter: Qualified Code: T83.511A - Urinary tract infection associated with indwelling urethral catheter, initial encounter Jordan Garcia MD Sep 13, 2016 08:40
[2016-09-13] MEDS: VENLAFAXINE HCL XR 75 MG CAP PO SCH (09:00)
[2016-09-13] MEDS: TRIAMCINOLONE ACETONIDE 0.1% CREAM 15 GM TOPICAL SCH (09:00)
[2016-09-13 09:06] LABS: BANDS 19 % (0-6); EOSINOPHILS 3 % (0-4); NEUTROPHIL # MANUAL DIFF 9.3 TH/MM3 (1.8-7.7); POLYS (SEG NEUTROPHILS) 57 % (16-70); WBC DIFF SAMPLE 100
[2016-09-13 09:07] LABS: PLATELET ESTIMATE SMEAR NORMAL (NORMAL); PLATELET MORPHOLOGY NORMAL (NORMAL); SCAN/DIFF FINAL DIFF MANUAL
[2016-09-13 09:44] LABS: BICARBONATE 24.4 MEQ/L (21.0-32.0); POTASSIUM 3.1 MEQ/L (3.5-5.1)
[2016-09-13 11:00] VITALS: BP 143/84; PULSE 66; RESP 17; TEMP 97.5; O2SAT 99
--- NOTE | 2016-09-13 11:21 | HHI.GIFU ---
GI Follow-up Note Consult Follow-up Subjective: LATE ENTERY NOTE for #09/12/16 Patient laying in bed comfortably, no new complaints diarrhea improved Objective: PHYSICAL EXAMINATION: Vitals signs stable No fever HEENT: Pupils round and reactive to light; normocephalic; atraumatic; no jaundice. Throat is clear. NECK: Neck is supple, no JVD, no lymphadenopathy. CHEST: Chest is clear to auscultation and percussion. CARDIAC: Regular rate and rhythm with no murmur gallop or rubs. ABDOMEN: Soft, nondistended, nontender; no hepatosplenomegaly; bowel sounds are present in all four quadrants. EXTREMITIES: No clubbing, cyanosis, or edema. SKIN: Normal; no rash; no jaundice. [employer]: No focal deficits; alert and oriented times three. Available Data (labs, X- Rays, Procedues) : Last Impressions Hepatobiliary Scan Nuclear Medicine 09/12/16 0000 Signed Impressions: Service Date/Time: Monday, September 12, 2016 09:52 - CONCLUSION: No evidence of acute cholecystitis Bert Kitchen MD Abdomen/Pelvis CT [id number]/09/[id number] Signed Impressions: Service Date/Time: Friday, September 09, 2016 20:58 - CONCLUSION: 1. Willis catheter balloon is inflated within the urethra. 2. Small gallstones. No inflammatory changes. No duct stone or ductal dilatation. 3. Bilateral renal cysts. Bassem Rob MD Head CT [id number] Signed Impressions: Service Date/Time: Friday, September 09, 2016 18:35 - CONCLUSION: 1. Mild ventriculomegaly appears slightly worse in the interim. Clinical correlation for possible normal pressure hydrocephalus recommended. 2. Chronic white matter changes are again noted. 3. No bleed or other acute intercranial abnormality. Bassem Rob MD Chest X-Ray [id number]/09/[id number] Signed Impressions: Service Date/Time: Friday, September 09, 2016 18:58 - CONCLUSION: No evidence of acute cardiopulmonary disease. Bassem Rob MD Gall Bladder Ultrasound 09/09/16 0000 Signed Impressions: Service Date/Time: Friday, September 09, 2016 21:36 - CONCLUSION: 1. Multiple subcentimeter gallstones present. No evidence of cholecystitis. No ductal stone or ductal dilatation. 2. Small echogenic right kidney with several cysts. Bassem Rob MD Laboratory Tests Test 09/12/16 09/12/16 09/13/16 09/13/16 05:05 12:03 04:17 09:00 Prothrombin Time 11.2 SEC Prothromb Time International 1.0 RATIO Ratio Sodium Level 136 MEQ/L 137 MEQ/L Potassium Level 2.6 MEQ/L 3.1 MEQ/L Chloride Level 102 MEQ/L 103 MEQ/L Carbon Dioxide Level 22.6 MEQ/L 24.4 MEQ/L Anion Gap 11 MEQ/L 10 MEQ/L Blood Urea Nitrogen 32 MG/DL 23 MG/DL Creatinine 1.30 MG/DL 1.07 MG/DL Estimat Glomerular Filtration 52 ML/MIN 65 ML/MIN Rate Random Glucose 157 MG/DL 146 MG/DL Calcium Level 8.3 MG/DL 7.8 MG/DL Total Bilirubin 0.8 MG/DL Direct Bilirubin 0.5 MG/DL Indirect Bilirubin 0.3 MG/DL Aspartate Amino Transf 14 U/L (AST/SGOT) Alanine Aminotransferase 75 U/L (ALT/SGPT) Alkaline Phosphatase 367 U/L B-Type Natriuretic Peptide 394 PG/ML Total Protein 4.5 GM/DL Albumin 1.7 GM/DL White Blood Count 13.8 TH/MM3 12.2 TH/MM3 Red Blood Count 4.00 MIL/MM3 4.06 MIL/MM3 Hemoglobin 12.2 GM/DL 12.4 GM/DL Hematocrit 35.7 % 35.8 % Mean Corpuscular Volume 89.1 FL 88.2 FL Mean Corpuscular Hemoglobin 30.5 PG 30.5 PG Mean Corpuscular Hemoglobin 34.3 % 34.6 % Concent Red Cell Distribution Width 15.0 % 14.4 % Platelet Count 244 TH/MM3 217 TH/MM3 Mean Platelet Volume 7.6 FL 7.7 FL Neutrophils (%) (Auto) 85.8 % 82.4 % Lymphocytes (%) (Auto) 5.6 % 7.9 % Monocytes (%) (Auto) 6.4 % 6.9 % Eosinophils (%) (Auto) 1.7 % 2.6 % Basophils (%) (Auto) 0.5 % 0.2 % Neutrophils # (Auto) 11.8 TH/MM3 10.1 TH/MM3 Lymphocytes # (Auto) 0.8 TH/MM3 1.0 TH/MM3 Monocytes # (Auto) 0.9 TH/MM3 0.8 TH/MM3 Eosinophils # (Auto) 0.2 TH/MM3 0.3 TH/MM3 Basophils # (Auto) 0.1 TH/MM3 0.0 TH/MM3 CBC Comment AUTO DIFF AUTO DIFF Differential Total Cells 100 100 Counted Neutrophils % (Manual) 66 % 57 % Band Neutrophils % 26 % 19 % Lymphocytes % 2 % 10 % Monocytes % 4 % 11 % Eosinophils % 1 % 3 % Neutrophils # (Manual) 12.8 TH/MM3 9.3 TH/MM3 Metamyelocytes 1 % Differential Comment FINAL DIFF FINAL DIFF MANUAL MANUAL Platelet Estimate NORMAL NORMAL Platelet Morphology Comment NORMAL NORMAL Red Cell Morphology Comment NORMAL NORMAL Hematology Comments Allergies Coded Allergies Type Severity Reaction Last Updated Verified No Known Allergies 09/09/16 No Active Scripts Medications Dose Route/Sig Days Date Category Dose Instructions Tramadol (Tramadol HCl) 50 Mg Tab 100 Mg PO Q6H PRN 09/09/16 Reported Tramadol (Tramadol HCl) 50 Mg Tab 50 Mg PO Q6H PRN 09/09/16 Reported Triamcinolone Topical (Triamcinolone Acetonide) 0.1% Cream 1 Applic TOPICAL BID 09/09/16 Reported Appy to perianal area every day and evening shift Propranolol (Propranolol HCl) 20 Mg Tab 20 Mg PO Q12HR 09/09/16 Reported Dulcolax Supp (Bisacodyl) 10 Mg Supp 10 Mg WI IN AM PRN 09/09/16 Reported Milk of Magnesia Liq (Magnesium Hydroxide) 400 Mg/5 Ml Susp 30 Ml PO HS PRN 09/09/16 Reported Enema Disposable (Sodium Phosphates) 1 Kisha Kisha 1 Applic WI IN AM PRN 09/09/16 Reported Citroma Liq (Magnesium Citrate) 300 Ml Liq 300 Ml PO IN AM PRN 09/09/16 Reported Effexor XR 24 HR (Venlafaxine HCl) 150 Mg Cap 150 Mg PO DAILY 09/09/16 Reported Lisinopril 5 Mg Tab 5 Mg PO DAILY 08/24/16 Rx Acidophilus/l-Sporogenes (Lactobacillus Acidophilus) 1 Tab Tab 1 Tab PO TID 08/24/16 Rx Norvasc (Amlodipine Besylate) 5 Mg Tab 5 Mg PO DAILY 08/24/16 Rx Omeprazole 20 Mg Tab 20 Mg PO DAILY 08/17/16 Reported Primidone 50 Mg Tab 50 Mg PO BID 08/17/16 Reported ASSESSMENT/PLAN: Seen and examined , doing well. HIDA -ve. On vancomcin for c. diff. Diet as tolerated. It was a pleasure seeing Edwardo Norman. Thank you for this consult. Entered by: Chayito Lewis MD Sep 13, 2016 11:20
[2016-09-13] MEDS: POTASSIUM CHLORIDE 10 MEQ CONTROLLED RELEASE TAB PO SCH ×2 (12:53→15:00)
--- NOTE | 2016-09-13 15:00 | HHI.DS ---
Discharge Summary Admission Date Sep 09, 2016 at 23:02 Discharge Date: Sep 13, 2016 Admitting Diagnosis Sepsis, UTI, Elevated LFTs (1) UTI (urinary tract infection) due to urinary indwelling Willis catheter ICD Code: T83.511A (2) Elevated LFTs ICD Code: R94.5 (3) Hematuria ICD Code: R31.9 (4) C. difficile diarrhea ICD Code: A04.7 Procedures see below Brief History - From Admission History from your physician communication, review of medical records, and [facility] transfer notes. Patient himself is an elderly gentleman who is somewhat confused. He is not really able to tell me a history. When he answers questions, he would sometimes contradict and not really able to elaborate on his answers. As per [facility] transfer notes, patient was sent because of gross hematuria in excruciating pain at the Willis catheter site. Patient has an indwelling Willis catheter for urinary retention. Per emergency room communication, patient's catheter was actually at the urethra and therefore this was exchanged. After the exchange, patient's hematuria had resolved. Patient denies any falls. Denies any chest pains or shortness of breath. Denies any syncopal episodes at this time. He of course denies most of the symptoms including diarrhea. However per nursing staff, patient was also having copious amount of diarrhea. Patient had recent hospitalization just last month for C. difficile colitis. There was also reported that patient was lethargic per [facility] notes. His initial arrival to ER, he was given history. It looks more as though he had sundowning effects. Patient himself states that he was able to walk with a walker at the rehabilitation facility. CBC/BMP: 09/13/16 0417 09/13/16 0900 Significant Findings Laboratory Tests Test 09/10/16 09/11/16 09/12/16 09/12/16 20:00 04:51 05:05 12:03 Sodium Level 129 MEQ/L 133 MEQ/L (136-145) (136-145) Chloride Level 96 MEQ/L (98-107) Blood Urea Nitrogen 36 MG/DL (7-18) 33 MG/DL (7-18) 32 MG/DL (7-18) Estimat Glomerular Filtration 52 ML/MIN (>89) 52 ML/MIN (>89) 52 ML/MIN (>89) Rate Random Glucose 190 MG/DL 160 MG/DL 157 MG/DL (74-106) (74-106) (74-106) Calcium Level 8.2 MG/DL 8.3 MG/DL (8.5-10.1) (8.5-10.1) Magnesium Level 2.7 MG/DL (1.5-2.5) White Blood Count 15.7 TH/MM3 13.8 TH/MM3 (4.0-11.0) (4.0-11.0) Red Blood Count 4.21 MIL/MM3 4.00 MIL/MM3 (4.50-5.90) (4.50-5.90) Hematocrit 37.1 % 35.7 % (39.0-51.0) (39.0-51.0) Neutrophils (%) (Auto) 84.4 % 85.8 % (16.0-70.0) (16.0-70.0) Lymphocytes (%) (Auto) 3.5 % 5.6 % (9.0-44.0) (9.0-44.0) Monocytes (%) (Auto) 11.2 % (0.0-8.0) Neutrophils # (Auto) 13.2 TH/MM3 11.8 TH/MM3 (1.8-7.7) (1.8-7.7) Lymphocytes # (Auto) 0.6 TH/MM3 0.8 TH/MM3 (1.0-4.8) (1.0-4.8) Monocytes # (Auto) 1.8 TH/MM3 (0-0.9) Potassium Level 3.2 MEQ/L 2.6 MEQ/L (3.5-5.1) (3.5-5.1) Creatinine 1.31 MG/DL (0.60-1.30) Total Bilirubin 1.7 MG/DL (0.2-1.0) Alanine Aminotransferase 124 U/L (12-78) (ALT/SGPT) Alkaline Phosphatase 510 U/L 367 U/L (45-117) (45-117) B-Type Natriuretic Peptide 215 PG/ML 394 PG/ML (0-100) (0-100) Total Protein 5.0 GM/DL 4.5 GM/DL (6.4-8.2) (6.4-8.2) Albumin 2.0 GM/DL 1.7 GM/DL (3.4-5.0) (3.4-5.0) Direct Bilirubin 0.5 MG/DL (0.0-0.2) Aspartate Amino Transf 14 U/L (15-37) (AST/SGOT) Hemoglobin 12.2 GM/DL (13.0-17.0) Band Neutrophils % 26 % (0-6) Lymphocytes % 2 % (9-44) Neutrophils # (Manual) 12.8 TH/MM3 (1.8-7.7) Test 09/13/16 09/13/16 04:17 09:00 White Blood Count 12.2 TH/MM3 (4.0-11.0) Red Blood Count 4.06 MIL/MM3 (4.50-5.90) Hemoglobin 12.4 GM/DL (13.0-17.0) Hematocrit 35.8 % (39.0-51.0) Neutrophils (%) (Auto) 82.4 % (16.0-70.0) Lymphocytes (%) (Auto) 7.9 % (9.0-44.0) Neutrophils # (Auto) 10.1 TH/MM3 (1.8-7.7) Band Neutrophils % 19 % (0-6) Monocytes % 11 % (0-8) Neutrophils # (Manual) 9.3 TH/MM3 (1.8-7.7) Potassium Level 3.1 MEQ/L (3.5-5.1) Blood Urea Nitrogen 23 MG/DL (7-18) Estimat Glomerular Filtration 65 ML/MIN (>89) Rate Random Glucose 146 MG/DL (74-106) Calcium Level 7.8 MG/DL (8.5-10.1) PE at Discharge - GENERAL: Frail elderly 89 years old patient in no acute distress CARDIOVASCULAR: Regular rate and rhythm without murmurs, gallops, or rubs. RESPIRATORY: Fair air entry bilaterally. No wheezes, rales, or rhonchi. GASTROINTESTINAL: Abdomen soft, non-tender, nondistended. Normal active bowel sounds MUSCULOSKELETAL: Extremities without clubbing, cyanosis, or edema. NEURO: Awake alert but refused to talk Moves all ext x4 Hospital Course Gross hematuria with Willis malfunction>> resolved Complicated UTI in patient with indwelling catheter C. difficile diarrhea JIMMIE creatinine 1.43 Hyperkalemia 5.5 resolved Leukocytosis with left shift Lactic acidosis resolved Transaminitis with increased alkaline phosphatase and bilirubin>> check CHAD, ASMA, consult GI Hyperammonemia>> resolved ammonia 25 DVT prophylaxis hold heparin due to gross hematuria, consider resuming when stable hospital course Willis catheter inserted, Follow urine culture On Zosyn for UTI, DC if culture negative Flagyl iv and by mouth vancomycin for third relapse multiple episode C. difficile SCD for DVT prophylaxis hold heparin for now due to hematuria Patient runs 8 beats of V. tach as per the nurse, his magnesium is 1.8 will give 2 g magnesium sulfate and monitor BMP gentle iv fluid 75 ns due to diarrhea lactulose held due to the diarrhea, continue monitoring ammonia on 09/11/16 patient had Hypokalemia today K3.2, replace, diarrhea ongoing, continue Vancopo and Flagyl iv, no more hematuria, hemoglobin stable around 13 Increase AST and ALK phosphorus, CHAD, ASMA, GI consulted BnP continue to increase 2-D echo ordered, hypokalemia replaced, per the nurse family wants DNR however patient refused to discuss, palliative care consult did Received call from palliative care nurse, patient and family decided and changing CODE STATUS to DNR and consulting hospice On 09/13/16: 2 bowel movement last night, afebrile, awaiting hospice consult today, appreciate palliative care consult. Hypokalemia replace po [id number] encounter performed with the patient , as well as physical exam, summary of hospitalization course and postdischarge plan has been D/W the patient. D/W nurse D/W hospice case manager. D/W Palliative care Discharge medications reviewed and printed and signed, post discharge follow up visit with PCP and other specialist as well as Brief hospital course and discharge summary has been placed. Pt Condition on Discharge: Deteriorating Discharge Disposition: Hospice/Med Facility Discharge Time: > 30 minutes Discharge Instructions DIET: Follow Instructions for: Diabetic Diet New Medications: Vancomycin Inj (Vancomycin Inj) 500 Mg Inj 125 MG PO QID c diff Days 21 INJECTION Continued Medications: Amlodipine (Norvasc) 5 Mg Tab 5 MG PO DAILY Blood Pressure Management #30 Ref 0 TAB Lactobacillus Acidophilus (Acidophilus/l-Sporogenes) 1 Tab Tab 1 TAB PO TID Diarrhea #30 Ref 0 TAB Lisinopril (Lisinopril) 5 Mg Tab 5 MG PO DAILY Blood Pressure Management #30 Ref 0 TAB Omeprazole (Omeprazole) 20 Mg Tab 20 MG PO DAILY #30 Ref 0 TAB Primidone (Primidone) 50 Mg Tab 50 MG PO BID Control Seizures #120 Ref 0 TAB Propranolol (Propranolol) 20 Mg Tab 20 MG PO Q12HR #60 Ref 0 TAB Tramadol (Tramadol) 50 Mg Tab 50 MG PO Q6H PRN PAIN 1-5 Ref 0 TAB Triamcinolone Topical (Triamcinolone Topical) 0.1% Cream 1 APPLIC TOPICAL BID Appy to perianal area every day and evening shift Inflammation Ref 0 GM Venlafaxine ER 24 HR (Effexor XR 24 HR) 150 Mg Cap 150 MG PO DAILY #30 Ref 0 CAP Jordan Garcia MD Sep 13, 2016 15:00
--- NOTE | 2016-09-13 15:13 | PQ ---
Physician Query Response Document PATIENT: ANA LAURA ALEX : 1925 ADMIT DATE: 09/09/2016 11:02 PM DISCH DATE: RESPONDING PROVIDER #: joel QUERY TEXT: Clinical Significance The diagnosis documented below requires documentation to state the clinical significance: HYPONATREMIA Please respond and also state in your next progress note whether the condition is: -- Clinically insignificant -- Clinically significant, -- Unable to determine clinical significance -- Other, please specify PLEASE CALL JENNIFER FROM [facility] @ EXT [id number] FOR ASSISTANCE The patient's Clinical Indicators include: PER MEDICAL RECORD: [id number] ON 09/09/16 [id number] ON 09/10/16 Query created by: Jennifer Muro on 09/11/2016 9:19 AM RESPONSE TEXT: Other: Did not understand the meaning of clinically significant but patient had hyponatremia due to d ehydration and possible component of chronic beer consumption, he was nonsymptomatic QUERY TEXT: Sepsis Query Based on your medical judgement, can you further clarify the folowiin. Sepsis (SIRS due to an infection) 2. Sepsis with Organ Dysfunction 3. A localized Infection only 4. Another condition - please specify 5. Unable to determine - please explain. PLEASE CALL JENNIFER IN [facility] @ EXT [id number] FOR ASSISTANCE The patient's Clinical Indicators include: PER PROGRESS NOTE 09/10/16: Complicated UTI in patient with indwelling catheter C. difficile diarrhea JIMMIE creatinine 1.43 base line below Leukocytosis with left shift Lactic acidosis improved On Zosyn for UTI, DC if culture negative Flagyl iv and by mouth vancomycin for third relapse multiple episode C. difficile CLINICAL FINDINGS ON 09/09/16: WBC=17.8, LACTIC ACID=2.7, TEMP=97.7, HR=83, RR=22, B/P= 130/75 URINE CULTURE SHOWING STAPH SP COAGULASE NEG C DIFFICLIE POSITIVE Query created by: Jennifer Muro on 09/11/2016 9:28 AM RESPONSE TEXT: Sepsis (SIRS due to an infection) Electronically signed by: Jordan Garcia MD 09/13/2016 3:09 PM
[2016-09-13] MEDS ORDERED: VANC500I3 PO (15:20)
[2016-09-13 15:48] VITALS: BP 157/71; PULSE 63; RESP 16; TEMP 97.2; O2SAT 95
--- NOTE | 2016-09-13 16:09 | HHI.GIFU ---
Subjective Remarks patient is resting in bed, denies nausea, vomiting or abdomen pain. The diarrhea has improved, he only had one loose BM today. (Kinga Sanford) Objective Vitals I&O Vital Signs Date Time Temp Pulse Resp B/P Pulse Ox O2 Delivery O2 Flow Rate FiO2 09/13/16 15:48 97.2 63 16 157/71 95 09/13/16 11:00 97.5 66 17 143/84 99 09/13/16 08:32 Room Air 09/13/16 08:32 97.2 61 16 147/72 98 09/13/16 07:24 63 09/13/16 04:00 Room Air 09/13/16 04:00 98.4 63 18 112/60 98 09/13/16 00:00 67 09/13/16 00:00 Room Air 09/13/16 00:00 98.0 67 18 153/89 97 09/12/16 20:00 68 09/12/16 20:00 98.2 68 20 159/89 99 I/O 09/12/16 09/12/16 09/12/16 09/13/16 09/13/16 09/13/16 07:00 15:00 23:00 07:00 15:00 23:00 Intake Total 800 ml 1260 ml 1380 ml Output Total 240 ml 750 ml 800 ml Balance 560 ml 510 ml 580 ml Intake Oral 0 ml 240 ml 480 ml IV Total 800 ml 1020 ml 900 ml Output Urine Total 240 ml 750 ml 800 ml Emesis 0 ml 0 ml # Bowel Movements 3 5 2 Laboratory Laboratory Tests Test 09/13/16 09/13/16 04:17 09:00 White Blood Count 12.2 Red Blood Count 4.06 Hemoglobin 12.4 Hematocrit 35.8 Mean Corpuscular Volume 88.2 Mean Corpuscular Hemoglobin 30.5 Mean Corpuscular Hemoglobin 34.6 Concent Red Cell Distribution Width 14.4 Platelet Count 217 Mean Platelet Volume 7.7 Neutrophils (%) (Auto) 82.4 Lymphocytes (%) (Auto) 7.9 Monocytes (%) (Auto) 6.9 Eosinophils (%) (Auto) 2.6 Basophils (%) (Auto) 0.2 Neutrophils # (Auto) 10.1 Lymphocytes # (Auto) 1.0 Monocytes # (Auto) 0.8 Eosinophils # (Auto) 0.3 Basophils # (Auto) 0.0 CBC Comment AUTO DIFF Differential Total Cells 100 Counted Neutrophils % (Manual) 57 Band Neutrophils % 19 Lymphocytes % 10 Monocytes % 11 Eosinophils % 3 Neutrophils # (Manual) 9.3 Differential Comment FINAL DIFF MANUAL Platelet Estimate NORMAL Platelet Morphology Comment NORMAL Red Cell Morphology Comment NORMAL Hematology Comments Sodium Level 137 Potassium Level 3.1 Chloride Level 103 Carbon Dioxide Level 24.4 Anion Gap 10 Blood Urea Nitrogen 23 Creatinine 1.07 Estimat Glomerular Filtration 65 Rate Random Glucose 146 Calcium Level 7.8 Date/Time Procedure Status Source Growth 09/09/16 21:15 Aerobic Blood Culture - Preliminary Resulted Blood Peripheral NO GROWTH IN 4 DAYS 09/09/16 21:15 Anaerobic Blood Culture - Preliminary Resulted Blood Peripheral NO GROWTH IN 4 DAYS 09/09/16 20:42 Aerobic Blood Culture Received Blood Peripheral Pending 09/09/16 20:42 Anaerobic Blood Culture Received Blood Peripheral Pending 09/09/16 19:10 Urine Culture - Final Complete Urine Catheterized Urine Staphylococcus Epidermidis Imaging Last Impressions Hepatobiliary Scan Nuclear Medicine 09/12/16 0000 Signed Impressions: Service Date/Time: Monday, September 12, 2016 09:52 - CONCLUSION: No evidence of acute cholecystitis Bert Kitchen MD Abdomen/Pelvis CT [id number] Signed Impressions: Service Date/Time: Friday, September 09, 2016 20:58 - CONCLUSION: 1. Willis catheter balloon is inflated within the urethra. 2. Small gallstones. No inflammatory changes. No duct stone or ductal dilatation. 3. Bilateral renal cysts. Bassem Rob MD Head CT [id number] Signed Impressions: Service Date/Time: Friday, September 09, 2016 18:35 - CONCLUSION: 1. Mild ventriculomegaly appears slightly worse in the interim. Clinical correlation for possible normal pressure hydrocephalus recommended. 2. Chronic white matter changes are again noted. 3. No bleed or other acute intercranial abnormality. Bassem Rbo MD Chest X-Ray [id number] Signed Impressions: Service Date/Time: Friday, September 09, 2016 18:58 - CONCLUSION: No evidence of acute cardiopulmonary disease. Bassem Rob MD Gall Bladder Ultrasound 09/09/16 0000 Signed Impressions: Service Date/Time: Friday, September 09, 2016 21:36 - CONCLUSION: 1. Multiple subcentimeter gallstones present. No evidence of cholecystitis. No ductal stone or ductal dilatation. 2. Small echogenic right kidney with several cysts. Bassem Rob MD Physical Exam HEENT: normocephalic; atraumatic; no jaundice. Throat is clear. NECK: Neck is supple, no JVD, no lymphadenopathy. CHEST: Chest is clear to auscultation and percussion. CARDIAC: Regular rate and rhythm with no murmur gallop or rubs. ABDOMEN: Soft, nondistended, nontender; no hepatosplenomegaly; bowel sounds are present in all four quadrants. EXTREMITIES: No clubbing, cyanosis, or edema. SKIN: ecchymosis to upper extremities KAI WHAKARURUHAU: alert and oriented. (Kinga Sanford) Assessment and Plan Plan - Elevated LFTs- Resolved. ALP remains high but trending down, ? passing stone or biliary stone, no indication on imaging. Hepatobiliary Scan Nuclear Medicine 09/12/16 No evidence of acute cholecystitis On admission AST 104, ALT 256, ALP 910, bili 1, Abdomen/Pelvis CT 09/09/16 1. Willis catheter balloon is inflated within the urethra. 2. Small gallstones. No inflammatory changes. No duct stone or ductal dilatation. 3. Bilateral renal cysts. Gall Bladder Ultrasound 09/09/16 1. Multiple subcentimeter gallstones present. No evidence of cholecystitis. No ductal stone or ductal dilatation. 2. Small echogenic right kidney with several cysts. Patient has a pace maker and will not be able to have MRCP - Gross hematuria with Willis malfunction>> resolved - C. difficile diarrhea- on Vanco, Flagyl and Zosyn - Complicated UTI in patient with indwelling catheter - Leukocytosis with left shift/lactic acidosis- improved abx - JIMMIE per attending - Hypokalemia per attending - Hyperammonemia- Resolved Plan: - JHONY - No further interventions from GI stand point - Cont. Abx for the C-diff - GI will sign off - Patient seen and examined by Dr. Warren and myself and this note is written on his behalf. (Kinga Sanford) Physician Comments Seen and examined with [facility]OR MATCHER, doing better. Complete antibiotic course. Gi will sign off, gi fu upon dc. Thank you (Chayito Warren MD) Kinga Sanford Sep 13, 2016 16:09 Chayito Warren MD Sep 14, 2016 14:52
== END 2016-09-13 19:00 | disposition hospice, inpatient (51) | DRG 698 ==
LOC: NEPC 17:26 → NEDA 23:02 → NEDH 09-10 05:13 → HCIS 09-10 11:59
PROVIDERS: ADMIT Family Medicine; ATTEND Family Medicine
PROC: 0T9B70Z Drainage of Bladder with Drainage Device, Via Natural or Artificial Opening (ICD-10-PCS; principal; 2016-09-09)
DX: T83.511A Infection and inflammatory reaction due to indwelling urethral catheter, initial encounter (principal); A41.9 Sepsis, unspecified organism; I47.2 Ventricular tachycardia; N17.9 Acute kidney failure, unspecified; E87.1 Hypo-osmolality and hyponatremia; E87.2 Acidosis; E46 Unspecified protein-calorie malnutrition; A04.7 Enterocolitis due to Clostridium difficile; E87.5 Hyperkalemia; N39.0 Urinary tract infection, site not specified; E86.0 Dehydration; E78.5 Hyperlipidemia, unspecified; I10 Essential (primary) hypertension; N40.1 Benign prostatic hyperplasia with lower urinary tract symptoms; R33.8 Other retention of urine; Z87.440 Personal history of urinary (tract) infections; Z95.0 Presence of cardiac pacemaker; E78.00 Pure hypercholesterolemia, unspecified; H91.93 Unspecified hearing loss, bilateral; G25.0 Essential tremor; K21.9 Gastro-esophageal reflux disease without esophagitis; N28.1 Cyst of kidney, acquired; Y84.6 Urinary catheterization as the cause of abnormal reaction of the patient, or of later complication, without mention of misadventure at the time of the procedure; E87.6 Hypokalemia; F03.90 Unspecified dementia, unspecified severity, without behavioral disturbance, psychotic disturbance, mood disturbance, and anxiety; R62.7 Adult failure to thrive; Z51.5 Encounter for palliative care; Z66 Do not resuscitate; K80.20 Calculus of gallbladder without cholecystitis without obstruction; F32.9 Major depressive disorder, single episode, unspecified; R31.0 Gross hematuria
CPT/HCPCS: 51702; 70450; 71010; 74176; 76705; 78227; 80048; 80053; 80076; 81001; 82140; 82550; 83605; 83735; 83880; 84100; 84484; 85007; 85025; 85027; 85610; 85730; 86403; 87040; 87077; 87086; 87186; 87493; 93005; 96361; 96365; A9537; J1644; J2543; J2805; J3370; J3475; J3480; J7030; J7050